=== PATIENT | female | born 1955 | race Caucasian/White ===

== ENCOUNTER 2021-10-11 16:12 | Inpatient (IN) | payer MEDICARE, OTHER ==
[2021-10-11] MEDS ORDERED: DEXAMETHASONE SOD PHOSPHATE 10 MG/ML 1 ML VIAL IVP STA (16:27)
--- NOTE | 2021-10-11 16:36 | ED ---
General Adult HPI - General Chief complaint: Shortness of Breath Stated complaint: SOB Time Seen by Provider: 10/11/21 16:12 Source: patient, EMS Mode of arrival: EMS Limitations: no limitations - History of Present Illness Initial comments: 65-year-old female presents emergency Department via EMS with chief complaint of dyspnea. Patient has been sick for 8 days. Patient reportedly tested positive outpatient. Patient states that she COVID-19 last year. Patient states she's had low-grade temp, increasing cough congestion shortness of breath no pain other than mild body aches. Denies any GI symptoms mild headache no neck pain or neck stiffness. Patient does have a history of COPD. - Related Data Allergies Allergy/AdvReac Type Severity Reaction Status Date / Time No Known Allergies Allergy Verified 10/11/21 16:19 Review of Systems ROS Statement: Those systems with pertinent positive or pertinent negative responses have been documented in the HPI. ROS Other: All systems not noted in ROS Statement are negative. Past Medical History Past Medical History: COPD, Thyroid Disorder History of Any Multi-Drug Resistant Organisms: None Reported Past Surgical History: Hysterectomy Past Psychological History: No Psychological Hx Reported Smoking Status: Current every day smoker Past Alcohol Use History: None Reported Past Drug Use History: None Reported General Exam Limitations: no limitations General appearance: alert, in no apparent distress Head exam: Present: atraumatic, normocephalic, normal inspection Eye exam: Present: normal appearance, PERRL, EOMI. Absent: scleral icterus, conjunctival injection, periorbital swelling ENT exam: Present: normal exam, mucous membranes moist Neck exam: Present: normal inspection, full ROM. Absent: tenderness, meningismus, lymphadenopathy Respiratory exam: Present: wheezes, decreased breath sounds. Absent: normal lung sounds bilaterally, respiratory distress, rales, rhonchi, stridor Cardiovascular Exam: Present: regular rate, normal rhythm, normal heart sounds. Absent: systolic murmur, diastolic murmur, rubs, gallop, clicks GI/Abdominal exam: Present: soft, normal bowel sounds. Absent: distended, tenderness, guarding, rebound, rigid Course Vital Signs 10/11/21 10/11/21 10/11/21 16:14 16:39 16:41 Temperature 98.2 F Pulse Rate 92 Respiratory 20 20 Rate Blood Pressure 122/52 O2 Sat by Pulse 98 88 L Oximetry Medical Decision Making - Medical Decision Making Chest x-ray showed bilateral pneumonia, patient's COVID-19 positive, hypoxia pulse ox 88%. Patient will be admitted for further evaluation treatment. - Lab Data Result diagrams: 10/11/21 16:32 10/11/21 16:32 Lab Results 10/11/21 10/11/21 10/11/21 Range/Units 16:31 16:32 16:32 WBC 5.6 (3.8-10.6) k/uL RBC 4.76 (3.80-5.40) m/uL Hgb 14.7 (11.4-16.0) gm/dL Hct 44.8 (34.0-46.0) % MCV 94.2 (80.0-100.0) fL MCH 30.9 (25.0-35.0) pg MCHC 32.8 (31.0-37.0) g/dL RDW 12.3 (11.5-15.5) % Plt Count 266 (150-450) k/uL MPV 8.2 Neutrophils % 81 % Lymphocytes % 9 % Monocytes % 7 % Eosinophils % 0 % Basophils % 1 % Neutrophils # 4.5 (1.3-7.7) k/uL Lymphocytes # 0.5 L (1.0-4.8) k/uL Monocytes # 0.4 (0-1.0) k/uL Eosinophils # 0.0 (0-0.7) k/uL Basophils # 0.1 (0-0.2) k/uL PT 9.6 (9.0-12.0) sec INR 0.9 (<1.2) APTT 25.9 (22.0-30.0) sec Sodium (137-145) mmol/L Potassium (3.5-5.1) mmol/L Chloride (98-107) mmol/L Carbon Dioxide (22-30) mmol/L Anion Gap mmol/L BUN (7-17) mg/dL Creatinine (0.52-1.04) mg/dL Est GFR (CKD-EPI)AfAm (>60 ml/min/1.73 sqM) Est GFR (CKD-EPI)NonAf (>60 ml/min/1.73 sqM) Glucose (74-99) mg/dL Plasma Lactic Acid Andrew (0.7-2.0) mmol/L Calcium (8.4-10.2) mg/dL Magnesium (1.6-2.3) mg/dL Total Bilirubin (0.2-1.3) mg/dL AST (14-36) U/L ALT (4-34) U/L Alkaline Phosphatase (38-126) U/L Lactate Dehydrogenase (313-618) U/L C-Reactive Protein (<1.0) mg/dL NT-Pro-B Natriuret Pep pg/mL Total Protein (6.3-8.2) g/dL Albumin (3.5-5.0) g/dL Coronavirus (PCR) Detected A (Not Detectd) 10/11/21 10/11/21 10/11/21 Range/Units 16:32 16:32 16:32 WBC (3.8-10.6) k/uL RBC (3.80-5.40) m/uL Hgb (11.4-16.0) gm/dL Hct (34.0-46.0) % MCV (80.0-100.0) fL MCH (25.0-35.0) pg MCHC (31.0-37.0) g/dL RDW (11.5-15.5) % Plt Count (150-450) k/uL MPV Neutrophils % % Lymphocytes % % Monocytes % % Eosinophils % % Basophils % % Neutrophils # (1.3-7.7) k/uL Lymphocytes # (1.0-4.8) k/uL Monocytes # (0-1.0) k/uL Eosinophils # (0-0.7) k/uL Basophils # (0-0.2) k/uL PT (9.0-12.0) sec INR (<1.2) APTT (22.0-30.0) sec Sodium 135 L (137-145) mmol/L Potassium 3.9 (3.5-5.1) mmol/L Chloride 98 (98-107) mmol/L Carbon Dioxide 28 (22-30) mmol/L Anion Gap 9 mmol/L BUN 11 (7-17) mg/dL Creatinine 0.63 (0.52-1.04) mg/dL Est GFR (CKD-EPI)AfAm >90 (>60 ml/min/1.73 sqM) Est GFR (CKD-EPI)NonAf >90 (>60 ml/min/1.73 sqM) Glucose 110 H (74-99) mg/dL Plasma Lactic Acid Andrew 2.0 (0.7-2.0) mmol/L Calcium 8.7 (8.4-10.2) mg/dL Magnesium 1.7 (1.6-2.3) mg/dL Total Bilirubin 0.3 (0.2-1.3) mg/dL AST 34 (14-36) U/L ALT 19 (4-34) U/L Alkaline Phosphatase 67 (38-126) U/L Lactate Dehydrogenase 663 H (313-618) U/L C-Reactive Protein 3.4 H (<1.0) mg/dL NT-Pro-B Natriuret Pep 143 pg/mL Total Protein 6.4 (6.3-8.2) g/dL Albumin 3.5 (3.5-5.0) g/dL Coronavirus (PCR) (Not Detectd) Disposition Clinical Impression: Pneumonia due to COVID-19 virus, Hypoxia Disposition: ADMITTED IP TO THIS HOSP Condition: Poor Referrals: Dennis Zafar DO [Primary Care Provider] - 1-2 days Time of Disposition: 17:34
[2021-10-11 16:45] LABS: Basophils # (A) 0.1 k/uL (0-0.2); Basophils % (A) 1 %; Eosinophils % (A) 0 %; HCT 44.8 % (34.0-46.0); HGB 14.7 gm/dL (11.4-16.0); Lymphocytes # (A) 0.5 k/uL (1.0-4.8); Lymphocytes % (A) 9 %; MCH 30.9 pg (25.0-35.0); MCHC 32.8 g/dL (31.0-37.0); MCV 94.2 fL (80.0-100.0); Mean Platelet Volume 8.2; Monocytes # (A) 0.4 k/uL (0-1.0); Monocytes % (A) 7 %; Neutrophils # (A) 4.5 k/uL (1.3-7.7); Neutrophils % (A) 81 %; Platelet Count 266 k/uL (150-450); RBC 4.76 m/uL (3.80-5.40); RDW 12.3 % (11.5-15.5); WBC 5.6 k/uL (3.8-10.6)
[2021-10-11 16:56] LABS: Chloride 98 mmol/L (98-107)
[2021-10-11 17:00] LABS: ALT 19 U/L (4-34); AST 34 U/L (14-36); African American GFR (CKD) >90 (>60 ml/min/1.73 sqM); Albumin 3.5 g/dL (3.5-5.0); Alkaline Phosphatase 67 U/L (38-126); Anion Gap 9 mmol/L; Blood Urea Nitrogen 11 mg/dL (7-17); C Reactive Protein 3.4 mg/dL (<1.0); Calcium 8.7 mg/dL (8.4-10.2); Carbon Dioxide 28 mmol/L (22-30); Glucose 110 mg/dL (74-99); LDH 663 U/L (313-618); Magnesium 1.7 mg/dL (1.6-2.3); Non-African American GFR(CKD) >90 (>60 ml/min/1.73 sqM); Potassium 3.9 mmol/L (3.5-5.1); Sodium 135 mmol/L (137-145); Total Bilirubin 0.3 mg/dL (0.2-1.3); Total Protein 6.4 g/dL (6.3-8.2)
--- NOTE | 2021-10-11 17:18 | XR ---
EXAMINATION TYPE: XR chest 2V DATE OF EXAM: 10/11/2021 COMPARISON: NONE HISTORY: Difficulty breathing TECHNIQUE: 2 views FINDINGS: There is patchy infiltrates at both lung bases. Upper lobes appear clear. There is some fla ttening of the diaphragm. There is bilateral breast implants with calcification. There are no hilar m asses. Heart size is normal. IMPRESSION: There is bilateral lower lobe pneumonia which is much more on the right side. Normal hear t. There is probably COPD. No heart failure.
[2021-10-11 17:25] LABS: INR 0.9 (<1.2); Partial Thromboplastin Time 25.9 sec (22.0-30.0); Prothrombin Time 9.6 sec (9.0-12.0)
[2021-10-11] MEDS ORDERED: NALOXONE 0.4 MG/ML 1 ML VIAL IV PRN (17:34)
[2021-10-11] MEDS ORDERED: ACETAMINOPHEN TAB 325 MG TAB PO PRN (17:34)
[2021-10-11] MEDS: SODIUM CHLORIDE 0.9% 1,000 ML IV SCH (19:25)
[2021-10-11] MEDS ORDERED: REMDESIVIR 200 MG in SODIUM CHLORIDE 0.9% 250 ML IVPB ONE (21:30)
[2021-10-11] MEDS ORDERED: ONDANSETRON 4 MG TAB PO PRN (22:30)
--- NOTE | 2021-10-11 22:34 | P.HPIM ---
History of Present Illness H&P Date: 10/11/21 Chief Complaint: Short of breath This is a pleasant 65 year patient follows with Dr. Zafar. Long-standing smoker. She did not get the COVID-19 vaccine. In August of last year she did get COVID. But was not hospitalized. For about a week patient started having increasing shortness of breath. Some cough. Low-grade fever or chills. Some diarrhea which is actually better. Aching all over. Slight headache. No loss of smell or taste. Poor appetite. Patient has tested positive for COVID-19. Review of systems: GEN.: Tired decreased appetite low-grade fever or chills EYES: None HEENT: None NECK: None RESPIRATORY: [As above CARDIOVASCULAR: None GASTROINTESTINAL: Had diarrhea but better GENITOURINARY: None MUSCULOSKELETAL: Aches and pains LYMPHATICS: None HEMATOLOGICAL: None PSYCHIATRY: None NEUROLOGICAL: None Past medical history to include: COPD, hypothyroid, COVID-19 in August 2020 Social history: . No alcohol. Smokes a pack a day for close to 55 years. Family history: Reviewed, noncontributory to presentation Physical examination: VITAL SIGNS: 98.2, 92, 20, 1 22 x 52, 88% on room air GENERAL: BMI 25.9, reclining in bed, short of breath. EYES: Pupils equal. Conjunctiva normal. HEENT: External appearance of nose and ears normal, oral cavity grossly normal. NECK: JVD not raised; masses not palpable. HEART: First and second heart sounds are normal; no edema. LUNGS: Respiratory rate increased, decreased breath sounds prolonged expiration and wheezing unable to speak in full sentences. ABDOMEN: Soft, nontender, liver spleen not palpable, no masses palpable. PSYCH: Alert and oriented x3; mood and affect anxiousl. NEUROLOGICAL: Cranial nerves grossly intact; no facial asymmetry, power and sensation grossly intact. LYMPHATICS: No lymph nodes palpable in the axilla and neck INVESTIGATIONS, reviewed in the clinical context: White count 5.6 hemoglobin 14.7 platelets 266 lymphocytes 0.5 sodium 135 progression 3.9 creatinine 0.63 CRP 3.4 Coronavirus [PCR]: Detected EKG tracing personally reviewed by me-normal sinus rhythm rate 81 Chest x-ray film personally reviewed by me-breast implant. Some scattered inf iltrate. Prominent pulmonary artery Assessment and plan: -Acute COVID 19 pneumonitis in a patient had a previous infection in August 2020. She did not get the vaccine for COVID-19. Dexamethasone, vitamin C, vitamin D, zinc. Subcu Lovenox Started on Remdesivir by pulmonary. -Acute hypoxic is pretty failure secondary to COVID 19 pneumonitis On 5 L of nasal cannula -Acute COPD exacerbation in a current smoker Albuterol 4 puffs every 4. Symbicort 160 / 4.52r twice a day, dexamethasone -Hypothyroid Synthroid -Chronic ALLERGIES Claritin-D -Chronic nicotine dependence, cigarette smoker Nicotine patch 21 IV Remdesivir. Dexamethasone. Subcu Lovenox. Albuterol. Symbicort. Resume home medications. Oxygen. Given the complexity and severity of patient's condition expect the patient to be in the hospital at least for 2 overnights Past Medical History Past Medical History: COPD, Thyroid Disorder History of Any Multi-Drug Resistant Organisms: None Reported Past Surgical History: Hysterectomy Past Psychological History: No Psychological Hx Reported Smoking Status: Current every day smoker Past Alcohol Use History: None Reported Past Drug Use History: None Reported Medications and Allergies Home Medications Medication Instructions Recorded Confirmed Type Albuterol Sulfate [Proair Hfa] 2 puff INHALATION RT-QID PRN 10/11/21 10/11/21 Hi story Amoxic-Pot Clav 875-125Mg 1 tab PO BID 10/11/21 10/11/21 History [Augmentin 875-125] Fluticasone/Umeclidin/Vilanter 1 puff INHALATION RT-DAILY 10/11/21 10/11/21 History [Trelegy Ellipta 100-62.5-25] Levothyroxine Sodium [Synthroid] 125 mcg PO DAILY 10/11/21 10/11/21 History Loratadine-Pseudoeph 5-120 mg 1 tab PO Q12H PRN 10/11/21 10/11/21 History [Claritin-D 12 Hour] Ondansetron HCl [Zofran] 4 mg PO Q8H PRN 10/11/21 10/11/21 History predniSONE See Taper PO DAILY 10/11/21 10/11/21 History Allergies Allergy/AdvReac Type Severity Reaction Status Date / Time No Known Allergies Allergy Verified 10/11/21 17:53 Physical Exam Vitals: Vital Signs Temp Pulse Resp BP Pulse Ox 10/11/21 20:30 98.6 F 75 18 102/54 96 10/11/21 17:48 97 F L 78 18 101/58 94 L 10/11/21 16:41 20 10/11/21 16:39 88 L 10/11/21 16:14 98.2 F 92 20 122/52 98 Intake and Output 10/11/21 10/11/21 10/11/21 06:59 14:59 22:59 Other: Weight 68.492 kg Results CBC & Chem 7: 10/11/21 16:32 10/11/21 16:32 Labs: Abnormal Lab Results - Last 24 Hours (Table) 10/11/21 10/11/21 10/11/21 Range/Units 16:31 16:32 16:32 Lymphocytes # 0.5 L (1.0-4.8) k/uL Sodium 135 L (137-145) mmol/L Glucose 110 H (74-99) mg/dL Lactate Dehydrogenase 663 H (313-618) U/L C-Reactive Protein 3.4 H (<1.0) mg/dL Coronavirus (PCR) Detected A (Not Detectd)
[2021-10-11] MEDS ORDERED: LORazepam 0.5 MG TAB PO PRN (23:00)
[2021-10-11] MEDS: ASCORBIC ACID 500 MG TAB PO SCH (23:12)
[2021-10-11] MEDS: ENOXAPARIN 40 MG/0.4 ML SYRINGE SQ SCH (23:12)
[2021-10-11] MEDS: CHOLECALCIFEROL 25 MCG (1000 IU) TABLET PO SCH (23:12)
[2021-10-11] MEDS: ZINC SULFATE 220 MG CAP PO SCH (23:12)
[2021-10-11] MEDS: NICOTINE 21MG/24HR PATCH TRANSDERM SCH (23:13)
[2021-10-11] MEDS: SYMBICORT 160-4.5 MCG INHALER INHALATION SCH (23:31)
[2021-10-11] MEDS: ALBUTEROL HFA INHALER INHALATION SCH ×2 (23:31→23:52)
[2021-10-12] MEDS ORDERED: CALCIUM CARBONATE 500 MG CHEWABLE PO PRN
[2021-10-12] MEDS: ALBUTEROL HFA INHALER INHALATION SCH ×5 (01:00→20:36)
[2021-10-12] MEDS: TEMAZEPAM 15 MG CAP PO PRN ×2 (02:32→23:47)
[2021-10-12] MEDS ORDERED: ALBUTEROL HFA INHALER INHALATION PRN (03:06)
[2021-10-12] MEDS: LEVOTHYROXINE 125 MCG TAB PO SCH (05:39)
[2021-10-12] MEDS: CHOLECALCIFEROL 25 MCG (1000 IU) TABLET PO SCH (07:47)
[2021-10-12] MEDS: ASCORBIC ACID 500 MG TAB PO SCH ×2 (07:48→21:09)
[2021-10-12] MEDS: ZINC SULFATE 220 MG CAP PO SCH (07:48)
[2021-10-12] MEDS: ENOXAPARIN 40 MG/0.4 ML SYRINGE SQ SCH (07:48)
[2021-10-12] MEDS: dexAMETHasone 2 MG TAB PO SCH (07:48)
[2021-10-12] MEDS: NICOTINE 21MG/24HR PATCH TRANSDERM SCH (07:49)
[2021-10-12] MEDS ORDERED: NON FORMULARY DRUG (Fluticasone/Umeclidin/Vilanter [Trelegy Ellipta 100-62.5-25] 1 EACH Ea INHALATION SCH (08:00)
[2021-10-12] MEDS: SYMBICORT 160-4.5 MCG INHALER INHALATION SCH ×2 (08:19→20:36)
[2021-10-12] MEDS ORDERED: LORATADINE-PSEUDOEPH 5-120 MG 1 EACH TAB.ER.12H PO PRN (09:00)
[2021-10-12] MEDS ORDERED: LACTULOSE 20 GM/30 ML CUP PO PRN (09:00)
--- NOTE | 2021-10-12 09:10 | P.CNPUL ---
History of Present Illness Consult date: 10/12/21 Requesting physician: Samuel Holloway Reason for consult: dyspnea, cough, hypoxemia Chief complaint: Dyspnea, hypoxia, cough History of present illness: This is a 65-year-old female patient that follows with Dr. Zafar who is a long-time smoker, with history of COPD not oxygen dependent at baseline, and history of hypothyroidism who presented to the emergency department per EMS on 10/11/2021 for evaluation of dyspnea. She had a outpatient test that was positive, her onset of symptoms was 7-8 days prior to presentation and initially started with a low-grade fever, mild body aches, progressive cough, congestion. No nausea vomiting or diarrhea. Patient is not vaccinated against COVID-19, chest x-ray in the emergency department showed bilateral lower lobe pneumonia more on the right side. COVID-19 PCR was positive. CBC was within normal limits with the exception of lymphocyte count was 0.6, d-dimer was normal at 0.46, coagulation profile was within normal limits, sodium was 135, the rest of electrolytes were within normal limits, BUN was 11 creatinine was 0.63, lactic acid was 2.0, ferritin level was 949, LFTs were within normal limits, LDH was 663, CRP was 3.4, proBNP was 143. Patient was found to be hypoxic with a pulse ox of 88%, she was placed on supplemental oxygen currently requiring 4 L per pulse ox today is 94%, she is afebrile, hemodynamically she is been stable, she's been started on Decadron, we started her on Remdesivir yesterday, today is day 2 of treatment, she is on prophylactic anticoagulation and COVID-19 vitamins Review of Systems All systems: negative Constitutional: Reports fever, Reports weakness, Denies chills Eyes: denies blurred vision, denies pain Ears, nose, mouth and throat: Denies headache, Denies sore throat Cardiovascular: Denies chest pain, Denies shortness of breath Respiratory: Reports dyspnea, Denies cough Gastrointestinal: Denies abdominal pain, Denies diarrhea, Denies nausea, Denies vomiting Genitourinary: Denies dysuria, Denies hematuria Musculoskeletal: Denies myalgias Integumentary: Denies pruritus, Denies rash Neurological: Denies numbness, Denies weakness Psychiatric: Denies anxiety, Denies depression Endocrine: Denies fatigue, Denies weight change Past Medical History Past Medical History: COPD, Thyroid Disorder History of Any Multi-Drug Resistant Organisms: None Reported Past Surgical History: Hysterectomy Additional Past Surgical History / Comment(s): breast augmentation 40 years ago Past Psychological History: No Psychological Hx Reported Smoking Status: Current every day smoker Past Alcohol Use History: None Reported Past Drug Use History: None Reported Medications and Allergies Home Medications Medication Instructions Recorded Confirmed Type Albuterol Sulfate [Proair Hfa] 2 puff INHALATION RT-QID PRN 10/11/21 10/11/21 History Amoxic-Pot Clav 875-125Mg 1 tab PO BID 10/11/21 10/11/21 History [Augmentin 875-125] Fluticasone/Umeclidin/Vilanter 1 puff INHALATION RT-DAILY 10/11/21 10/11/21 History [Trelegy Ellipta 100-62.5-25] Levothyroxine Sodium [Synthroid] 125 mcg PO DAILY 10/11/21 10/11/21 History Loratadine-Pseudoeph 5-120 mg 1 tab PO Q12H PRN 10/11/21 10/11/21 History [Claritin-D 12 Hour] Ondansetron HCl [Zofran] 4 mg PO Q8H PRN 10/11/21 10/11/21 History predniSONE See Taper PO DAILY 10/11/21 10/11/21 History Allergies Allergy/AdvReac Type Severity Reaction Status Date / Time No Known Allergies Allergy Verified 10/11/21 17:53 Physical Exam Vitals: Vital Signs Temp Pulse Pulse Resp BP BP Pulse Ox 10/12/21 04:51 97.5 F L 63 17 103/65 94 L 10/12/21 02:05 98.3 F 74 18 98/51 95 10/11/21 22:40 98.1 F 71 17 111/67 93 L 10/11/21 20:30 98.6 F 75 18 102/54 96 10/11/21 17:48 97 F L 78 18 101/58 94 L 10/11/21 16:41 20 10/11/21 16:39 88 L 10/11/21 16:14 98.2 F 92 20 122/52 98 Intake and Output 10/11/21 10/12/21 10/12/21 22:59 06:59 14:59 Other: # Voids 2 Weight 68.492 kg GENERAL EXAM: Alert,very pleasant 65 yo female resting in bed on 4 l/min, comfortable in no apparent distress. HEAD: Normocephalic/atraumatic. EYES: Normal reaction of pupils, equal size. Conjunctiva pink, sclera white. NOSE: Clear with pink turbinates. THROAT: No erythema or exudates. NECK: No masses, no JVD, no thyroid enlargement, no adenopathy. CHEST: No chest wall deformity. Symmetrical expansion. LUNGS: Equal air entry with coarse crackles CVS: Regular rate and rhythm, normal S1 and S2, no gallops, no murmurs, no rubs ABDOMEN: Soft, nontender. No hepatosplenomegaly, normal bowel sounds, no guarding or rigidity. EXTREMITIES: No clubbing, no edema, no cyanosis, 2+ pulses and upper and lower extremities. MUSCULOSKELETAL: Muscle strength and tone normal. SPINE: No scoliosis or deformity SKIN: No rashes CENTRAL NERVOUS SYSTEM: Alert and oriented -3. No focal deficits, tone is normal in all 4 extremities. PSYCHIATRIC: Alert and oriented -3. Appropriate affect. Intact judgment and insight. Results - Laboratory Findings CBC and BMP: 10/11/21 16:32 10/11/21 16:32 PT/INR, D-dimer PT 9.6 sec (9.0-12.0) 10/11/21 16:32 INR 0.9 (<1.2) 10/11/21 16:32 D-Dimer 0.46 mg/L FEU (<0.60) 10/12/21 05:25 Abnormal lab findings: Abnormal Labs 10/11/21 10/11/21 10/11/21 16:31 16:32 16:32 Lymphocytes # 0.5 L Sodium 135 L Glucose 110 H Ferritin 949.0 H Lactate Dehydrogenase 663 H C-Reactive Protein 3.4 H Coronavirus (PCR) Detected A 10/12/21 05:25 Lymphocytes # Sodium Glucose Ferritin Lactate Dehydrogenase C-Reactive Protein 4.2 H Coronavirus (PCR) - Diagnostic Findings Chest x-ray: report reviewed, image reviewed Assessment and Plan Plan: Assessment: #1. Acute hypoxic respiratory failure related to acute COVID-19 pneumonia, patient is on non-vaccinated adult, presented to the emergency department per EMS on 10/11/2021 with 7 days of symptoms. Patient was started on Remdesivir on 10/11/2021. Currently on 4 L of supplemental oxygen #2. Elevated inflammatory markers related to the above #3. History of COPD not oxygen dependent at baseline #4. Chronic and ongoing history of smoking #5. Hypothyroidism Plan: Continue Remdesivir, today is day 2 of treatment Continue Decadron continue prophylactic anticoagulation Patient is breathing comfortably, in no acute distress, currently requiring 4 L of supplemental oxygen We'll follow d-dimer and inflammatory markers We'll monitor for worsening dyspnea or hypoxia and make recommendations accordingly I performed a history & physical examination of the patient and discussed their management with my nurse practitioner, Tish Crum. I reviewed the nurse practitioner's note and agree with the documented findings and plan of care. Lung sounds are positive for rales throughout the lung choudhury. The findings and the impression was discussed with the patient. I attest to the documentation by the nurse practitioner. Time with Patient: Greater than 30
--- NOTE | 2021-10-12 16:58 | P.PN ---
Progress Note - Text Progress Note Date: 10/12/21 Chief Complaint: Short of breath This is a pleasant 65 year patient follows with Dr. Zafar. Long-standing smoker. She did not get the COVID-19 vaccine. In August of last year she did get COVID. But was not hospitalized. For about a week patient started having i ncreasing shortness of breath. Some cough. Low-grade fever or chills. Some diarrhea which is actually better. Aching all over. Slight headache. No loss of smell or taste. Poor appetite. Patient has tested positive for COVID-19. Admitted with COVID 19 pneumonitis, acute hypoxic respiratory failure, acute COPD exacerbation. Started on dexamethasone, Remdesivir October 12: Feeding as she had better. Short of breath. Some wheezing. Eating about 50%. Was on 5 L of nasal cannula. Decreased to 3 L. Review of systems: Was done for constitutional, cardiovascular, GI, pulmonary. relevant finding as above Active Medications Acetaminophen (Acetaminophen Tab 325 Mg Tab) 650 mg PO Q6HR PRN PRN Reason: Mild Pain or Fever > 100.5 Albuterol Sulfate (Albuterol Hfa Inhaler) 4 puff INHALATION RT-QID [facility] Last Admin: 10/12/21 16:37 Dose: 4 puff Documented by: Albuterol Sulfate (Albuterol Hfa Inhaler) 4 puff INHALATION RT-QID PRN PRN Reason: Shortness Of Breath Or Wheezing Ascorbic Acid (Ascorbic Acid 500 Mg Tab) 500 mg PO BID [facility] Last Admin: 10/12/21 07:48 Dose: 500 mg Documented by: Budesonide/Formoterol Fumarate (Symbicort 160-4.5 Mcg Inhaler) 2 puff INHALATION RT-BID [facility] Last Admin: 10/12/21 08:19 Dose: 2 puff Documented by: Calcium Carbonate/Glycine (Calcium Carbonate 500 Mg Chewable) 1,000 mg PO Q4HR PRN PRN Reason: Dyspepsia Cholecalciferol (Cholecalciferol 25 Mcg (1000 Iu) Tablet) 100 mcg PO DAILY [facility] Last Admin: 10/12/21 07:47 Dose: 100 mcg Documented by: Dexamethasone (Dexamethasone 2 Mg Tab) 6 mg PO DAILY [facility] Last Admin: 10/12/21 07:48 Dose: 6 mg Documented by: Enoxaparin Sodium (Enoxaparin 40 Mg/0.4 Ml Syringe) 40 mg SQ DAILY [facility] Last Admin: 10/12/21 07:48 Dose: 40 mg Documented by: Sodium Chloride (Saline 0.9%) 1,000 mls @ 75 mls/hr IV .[id number] [facility] Last Admin: 10/11/21 19:25 Dose: 75 mls/hr Documented by: Remdesivir 100 mg/ Sodium (Chloride) 250 mls @ 250 mls/hr IVPB [facility] Stop: 10/15/21 21:59 Lactulose (Lactulose 20 Gm/30 Ml Cup) 20 gm PO DAILY PRN PRN Reason: Constipation Levothyroxine Sodium (Levothyroxine 125 Mcg Tab) 125 mcg PO DAILY@0630 [facility] Last Admin: 10/12/21 05:39 Dose: 125 mcg Documented by: Loratadine/Pseudoephedrine Sulfate (Loratadine-Pseudoeph 5-120 Mg 1 Each Tab.Er.12h) 1 each PO Q12H PRN PRN Reason: Allergy Symptoms Lorazepam (Lorazepam 0.5 Mg Tab) 0.5 mg PO Q6HR PRN PRN Reason: Anxiety Naloxone HCl (Naloxone 0.4 Mg/Ml 1 Ml Vial) 0.2 mg IV Q2M PRN PRN Reason: Opioid Reversal Nicotine (Nicotine 21mg/24hr Patch) 1 patch TRANSDERM DAILY [facility] Last Admin: 10/12/21 07:49 Dose: Not Given Documented by: Ondansetron HCl (Ondansetron 4 Mg Tab) 4 mg PO Q8H PRN PRN Reason: Nausea And Vomiting Temazepam (Temazepam 15 Mg Cap) 15 mg PO HS PRN PRN Reason: Insomnia Last Admin: 10/12/21 02:32 Dose: 15 mg Documented by: Zinc Sulfate (Zinc Sulfate 220 Mg Cap) 220 mg PO DAILY [facility] Last Admin: 10/12/21 07:48 Dose: 220 mg Documented by: Past medical history to include: COPD, hypothyroid, COVID-19 in August 2020 Social history: . No alcohol. Smokes a pack a day for close to 55 years. Family history: Reviewed, noncontributory to presentation Physical examination: VITAL SIGNS: 98.2, 66, 18, 109/65, 92% on 2 L GENERAL: , reclining in bed, short of breath. LUNGS: Respiratory rate increased, PSYCH: Alert and oriented x3; mood and affect anxiousl. NEUROLOGICAL: Cranial nerves grossly intact; no facial asymmetry, moving all 4 limbs Still example pulmonary and nursing INVESTIGATIONS, reviewed in the clinical context: October 12: D-dimer 0.46 CRP 4.2 White count 5.6 hemoglobin 14.7 platelets 266 lymphocytes 0.5 sodium 135 progression 3.9 creatinine 0.63 CRP 3.4 Coronavirus [PCR]: Detected EKG tracing personally reviewed by me-normal sinus rhythm rate 81 Chest x-ray film personally reviewed by me-breast implant. Some scattered infiltrate. Prominent pulmonary artery Assessment and plan: -Acute COVID 19 pneumonitis in a patient had a previous infection in August 2020. She did not get the vaccine for COVID-19. Dexamethasone, vitamin C, vitamin D, zinc. Subcu Lovenox Started on Remdesivir by pulmonary. -Acute hypoxic is pretty failure secondary to COVID 19 pneumonitis: Some improvement On 3 L of nasal cannula -Acute COPD exacerbation in a current smoker Albuterol 4 puffs every 4. Symbicort 160 / 4.52r twice a day, dexamethasone -Hypothyroid Synthroid -Chronic ALLERGIES Claritin-D -Chronic nicotine dependence, cigarette smoker Nicotine patch 21 IV Remdesivir. Dexamethasone. Subcu Lovenox. Albuterol. Symbicort. Patient use incentive spirometry. Up in chair as tolerated.
[2021-10-12] MEDS: REMDESIVIR 100 MG in SODIUM CHLORIDE 0.9% 250 ML IVPB SCH (21:09)
[2021-10-13] MEDS: SODIUM CHLORIDE 0.9% 1,000 ML IV SCH ×4 (03:19→23:57)
[2021-10-13] MEDS: LEVOTHYROXINE 125 MCG TAB PO SCH (05:35)
[2021-10-13] MEDS: SYMBICORT 160-4.5 MCG INHALER INHALATION SCH ×2 (07:59→21:00)
[2021-10-13] MEDS: ALBUTEROL HFA INHALER INHALATION SCH ×4 (07:59→21:00)
--- NOTE | 2021-10-13 09:17 | P.PN ---
Subjective Progress Note Date: 10/13/21 This is a 65-year-old female patient that follows with Dr. Zafar who is a long-time smoker, with history of COPD not oxygen dependent at baseline, and history of hypothyroidism who presented to the emergency department per EMS on 10/11/2021 for evaluation of dyspnea. She had a outpatient test that was positive, her onset of symptoms was 7-8 days prior to presentation and initially started with a low-grade fever, mild body aches, progressive cough, congestion. No nausea vomiting or diarrhea. Patient is not vaccinated against COVID-19, chest x-ray in the emergency department showed bilateral lower lobe pneumonia more on the right side. COVID-19 PCR was positive. CBC was within normal limits with the exception of lymphocyte count was 0.6, d-dimer was normal at 0.46, coagulation profile was within normal limits, sodium was 135, the rest of electrolytes were within normal limits, BUN was 11 creatinine was 0.63, lactic acid was 2.0, ferritin level was 949, LFTs were within normal limits, LDH was 663, CRP was 3.4, proBNP was 143. Patient was found to be hypoxic with a pulse ox of 88%, she was placed on supplemental oxygen currently requiring 4 L per pulse ox today is 94%, she is afebrile, hemodynamically she is been stable, she's been started on Decadron, we started her on Remdesivir yesterday, today is day 2 of treatment, she is on prophylactic anticoagulation and COVID-19 vitamins On 10/13/2021 patient seen in follow-up on medical surgical floor, she sitting up and into the bed, breathing comfortably, she is currently on 3 L of oxygen her pulse ox of 91-95%, she has been afebrile overnight, she states her breathing is stable, mild cough, no complaints of chest pain, at times she is able to produce some white colored phlegm. Vital signs have been stable, she is resting comfortably, she was started on Remdesivir, today is day 3 of treatment. She also remains on Decadron, and prophylactic Lovenox. Today's labs are still pending. No new chest x-ray Objective - Vital Signs Vital signs: Vital Signs Temp 98.0 F 10/13/21 05:57 Pulse 61 10/13/21 05:57 Resp 17 10/13/21 05:57 BP 110/68 10/13/21 05:57 Pulse Ox 91 L 10/13/21 05:57 Intake & Output 10/12/21 10/13/21 10/13/21 18:59 06:59 18:59 Intake Total 1000 Output Total 1 Balance 999 Intake: Oral 1000 Output: Stool 1 Other: # Voids 4 3 - Exam GENERAL EXAM: Alert,very pleasant 65 yo female resting in bed on 3 l/min, comfortable in no apparent distress. HEAD: Normocephalic/atraumatic. EYES: Normal reaction of pupils, equal size. Conjunctiva pink, sclera white. NOSE: Clear with pink turbinates. THROAT: No erythema or exudates. NECK: No masses, no JVD, no thyroid enlargement, no adenopathy. CHEST: No chest wall deformity. Symmetrical expansion. LUNGS: Equal air entry with coarse crackles CVS: Regular rate and rhythm, normal S1 and S2, no gallops, no murmurs, no rubs ABDOMEN: Soft, nontender. No hepatosplenomegaly, normal bowel sounds, no guarding or rigidity. EXTREMITIES: No clubbing, no edema, no cyanosis, 2+ pulses and upper and lower extremities. MUSCULOSKELETAL: Muscle strength and tone normal. SPINE: No scoliosis or deformity SKIN: No rashes CENTRAL NERVOUS SYSTEM: Alert and oriented -3. No focal deficits, tone is norm al in all 4 extremities. PSYCHIATRIC: Alert and oriented -3. Appropriate affect. Intact judgment and insight. - Labs CBC & Chem 7: 10/11/21 16:32 10/11/21 16:32 Assessment and Plan Plan: Assessment: #1. Acute hypoxic respiratory failure related to acute COVID-19 pneumonia, patient is on non-vaccinated adult, presented to the emergency department per EMS on 10/11/2021 with 7 days of symptoms. Patient was started on Remdesivir on 10/11/2021. Currently on 4 L of supplemental oxygen #2. Elevated inflammatory markers related to the above #3. History of COPD not oxygen dependent at baseline #4. Chronic and ongoing history of smoking #5. Hypothyroidism Plan: Continue Remdesivir, today is day 3 of treatment Continue Decadron continue prophylactic anticoagulation Patient is breathing comfortably, in no acute distress, currently requiring 3 L of supplemental oxygen Follow-up d-dimer and inflammatory markers are still pending If remains stable and continues to improve and remains on minimal supplemental oxygen may consider discharge home in the next 24 hours I performed a history & physical examination of the patient and discussed their management with my nurse practitioner, Tish Crum. I reviewed the nurse practitioner's note and agree with the documented findings and plan of care. Lung sounds are positive for rales throughout the lung choudhury. The findings and the impression was discussed with the patient. I attest to the documentation by the nurse practitioner. Time with Patient: Less than 30
[2021-10-13] MEDS: CHOLECALCIFEROL 25 MCG (1000 IU) TABLET PO SCH (09:30)
[2021-10-13] MEDS: ZINC SULFATE 220 MG CAP PO SCH (09:30)
[2021-10-13] MEDS: ASCORBIC ACID 500 MG TAB PO SCH ×2 (09:30→20:48)
[2021-10-13] MEDS: dexAMETHasone 2 MG TAB PO SCH (09:30)
[2021-10-13] MEDS: ENOXAPARIN 40 MG/0.4 ML SYRINGE SQ SCH (09:30)
[2021-10-13] MEDS: NICOTINE 21MG/24HR PATCH TRANSDERM SCH (09:31)
[2021-10-13 10:40] LABS: C Reactive Protein 2.2 mg/dL (<1.0)
--- NOTE | 2021-10-13 14:46 | P.PN ---
Progress Note - Text Progress Note Date: 10/13/21 Chief Complaint: Short of breath This is a pleasant 65 [address] patient follows with Dr. Zafar. Long-standing smoker. She did not get the COVID-19 vaccine. In August of last year she did get COVID. But was not hospitalized. For about a week patient started having i ncreasing shortness of breath. Some cough. Low-grade fever or chills. Some diarrhea which is actually better. Aching all over. Slight headache. No loss of smell or taste. Poor appetite. Patient has tested positive for COVID-19. Admitted with COVID 19 pneumonitis, acute hypoxic respiratory failure, acute COPD exacerbation. Started on dexamethasone, Remdesivir October 12: Feeding as she had better. Short of breath. Some wheezing. Eating about 50%. Was on 5 L of nasal cannula. Decreased to 3 L. October 13: Some shortness of breath. Eating a bit better. Tired. On 3 L of nasal cannula. Review of systems: Was done for constitutional, cardiovascular, GI, pulmonary. relevant finding as above Active Medications Acetaminophen (Acetaminophen Tab 325 Mg Tab) 650 mg PO Q6HR PRN PRN Reason: Mild Pain or Fever > 100.5 Albuterol Sulfate (Albuterol Hfa Inhaler) 4 puff INHALATION RT-QID [facility] Last Admin: 10/13/21 11:14 Dose: Not Given Documented by: Albuterol Sulfate (Albuterol Hfa Inhaler) 4 puff INHALATION RT-QID PRN PRN Reason: Shortness Of Breath Or Wheezing Ascorbic Acid (Ascorbic Acid 500 Mg Tab) 500 mg PO BID [facility] Last Admin: 10/13/21 09:30 Dose: 500 mg Documented by: Budesonide/Formoterol Fumarate (Symbicort 160-4.5 Mcg Inhaler) 2 puff INHALATION RT-BID [facility] Last Admin: 10/13/21 07:59 Dose: 2 puff Documented by: Calcium Carbonate/Glycine (Calcium Carbonate 500 Mg Chewable) 1,000 mg PO Q4HR PRN PRN Reason: Dyspepsia Cholecalciferol (Cholecalciferol 25 Mcg (1000 Iu) Tablet) 100 mcg PO DAILY [facility] Last Admin: 10/13/21 09:30 Dose: 100 mcg Documented by: Dexamethasone (Dexamethasone 2 Mg Tab) 6 mg PO DAILY [facility] Last Admin: 10/13/21 09:30 Dose: 6 mg Documented by: Enoxaparin Sodium (Enoxaparin 40 Mg/0.4 Ml Syringe) 40 mg SQ DAILY [facility] Last Admin: 10/13/21 09:30 Dose: 40 mg Documented by: Sodium Chloride (Saline 0.9%) 1,000 mls @ 75 mls/hr IV .[id number] [facility] Last Admin: 10/13/21 03:19 Dose: 75 mls/hr Documented by: Remdesivir 100 mg/ Sodium (Chloride) 250 mls @ 250 mls/hr IVPB HS [facility] Stop: 10/15/21 21:59 Last Admin: 10/12/21 21:09 Dose: 250 mls/hr Documented by: Lactulose (Lactulose 20 Gm/30 Ml Cup) 20 gm PO DAILY PRN PRN Reason: Constipation Levothyroxine Sodium (Levothyroxine 125 Mcg Tab) 125 mcg PO DAILY@0630 [facility] Last Admin: 10/13/21 05:35 Dose: 125 mcg Documented by: Loratadine/Pseudoephedrine Sulfate (Loratadine-Pseudoeph 5-120 Mg 1 Each Tab.Er.12h) 1 each PO Q12H PRN PRN Reason: Allergy Symptoms Lorazepam (Lorazepam 0.5 Mg Tab) 0.5 mg PO Q6HR PRN PRN Reason: Anxiety Naloxone HCl (Naloxone 0.4 Mg/Ml 1 Ml Vial) 0.2 mg IV Q2M PRN PRN Reason: Opioid Reversal Nicotine (Nicotine 21mg/24hr Patch) 1 patch TRANSDERM DAILY [facility] Last Admin: 10/13/21 09:31 Dose: Not Given Documented by: Ondansetron HCl (Ondansetron 4 Mg Tab) 4 mg PO Q8H PRN PRN Reason: Nausea And Vomiting Temazepam (Temazepam 15 Mg Cap) 15 mg PO HS PRN PRN Reason: Insomnia Last Admin: 10/12/21 23:47 Dose: 15 mg Documented by: Zinc Sulfate (Zinc Sulfate 220 Mg Cap) 220 mg PO DAILY [facility] Last Admin: 10/13/21 09:30 Dose: 220 mg Documented by: Past medical history to include: COPD, hypothyroid, COVID-19 in August 2020 Social history: . No alcohol. Smokes a pack a day for close to 55 years. Family history: Reviewed, noncontributory to presentation Physical examination: VITAL SIGNS: 97.5, 64, 19, 93 x 55, 97% on 3 L GENERAL: , reclining in bed, less short of breath. LUNGS: Respiratory rate increased, PSYCH: Alert and oriented x3; mood and affect anxiousl. NEUROLOGICAL: Cranial nerves grossly intact; no facial asymmetry, moving all 4 limbs Rest of the exam per pulmonary and nursing INVESTIGATIONS, reviewed in the clinical context: October 13: D-dimer 0.53 CRP 2.2 October 12: D-dimer 0.46 CRP 4.2 White count 5.6 hemoglobin 14.7 platelets 266 lymphocytes 0.5 sodium 135 progression 3.9 creatinine 0.63 CRP 3.4 Coronavirus [PCR]: Detected EKG tracing personally reviewed by me-normal sinus rhythm rate 81 Chest x-ray film personally reviewed by me-breast implant. Some scattered infiltrate. Prominent pulmonary artery Assessment and plan: -Acute COVID 19 pneumonitis in a patient had a previous infection in August 2020. She did not get the vaccine for COVID-19. Dexamethasone, vitamin C, vitamin D, zinc. Subcu Lovenox Started on Remdesivir by pulmonary. -Acute hypoxic is pretty failure secondary to COVID 19 pneumonitis: Some improvement On 3 L of nasal cannula -Acute COPD exacerbation in a current smoker Albuterol 4 puffs every 4. Symbicort 160 / 4.52r twice a day, dexamethasone -Hypothyroid Synthroid -Chronic ALLERGIES Claritin-D -Chronic nicotine dependence, cigarette smoker Nicotine patch 21 IV Remdesivir. Dexamethasone. Subcu Lovenox. Albuterol. Symbicort. Patient use incentive spirometry. Discussed with patient. Follow with pulmonary.
[2021-10-13] MEDS: TEMAZEPAM 15 MG CAP PO PRN (20:48)
[2021-10-13] MEDS: REMDESIVIR 100 MG in SODIUM CHLORIDE 0.9% 250 ML IVPB SCH (20:48)
[2021-10-14] MEDS: LEVOTHYROXINE 125 MCG TAB PO SCH (05:33)
--- NOTE | 2021-10-14 07:38 | XR ---
EXAMINATION TYPE: XR chest 1V portable DATE OF EXAM: 10/14/2021 COMPARISON: Chest x-ray 10/11/2021 HISTORY: Abnormal chest x-ray, Covid TECHNIQUE: Single frontal view of the chest is obtained. FINDINGS: Patchy density is again noted at the right lung base greater than left. There is no eviden t pneumothorax or pleural effusion. Cardiac mediastinal silhouette shows a stable appearance. Calcifi ed breast prostheses are noted incidentally. Bones are stable. IMPRESSION: Correlate for pneumonia.
[2021-10-14] MEDS: SYMBICORT 160-4.5 MCG INHALER INHALATION SCH (09:15)
[2021-10-14] MEDS: ALBUTEROL HFA INHALER INHALATION SCH ×3 (09:15→15:57)
[2021-10-14] MEDS: dexAMETHasone 2 MG TAB PO SCH (09:20)
[2021-10-14] MEDS: ENOXAPARIN 40 MG/0.4 ML SYRINGE SQ SCH (09:20)
[2021-10-14] MEDS: ASCORBIC ACID 500 MG TAB PO SCH (09:20)
[2021-10-14] MEDS: CHOLECALCIFEROL 25 MCG (1000 IU) TABLET PO SCH (09:20)
[2021-10-14] MEDS: ZINC SULFATE 220 MG CAP PO SCH (09:20)
[2021-10-14] MEDS: NICOTINE 21MG/24HR PATCH TRANSDERM SCH (09:21)
[2021-10-14 12:40] VITALS: BP 132/72; PULSE 66; RESP 18; TEMP 97.5
[2021-10-14] MEDS: SODIUM CHLORIDE 0.9% 1,000 ML IV SCH (16:24)
--- NOTE | 2021-10-14 17:13 | P.PN ---
Subjective Progress Note Date: 10/14/21 Principal diagnosis: Acute hypoxic or for failure secondary to COVID-19 pneumonia, not vaccinated. This is a 65-year-old female patient that follows with Dr. Zafar who is a jessica g-time smoker, with history of COPD not oxygen dependent at baseline, and history of hypothyroidism who presented to the emergency department per EMS on 10/11/2021 for evaluation of dyspnea. She had a outpatient test that was positive, her onset of symptoms was 7-8 days prior to presentation and initially started with a low-grade fever, mild body aches, progressive cough, congestion. No nausea vomiting or diarrhea. Patient is not vaccinated against COVID-19, chest x-ray in the emergency department showed bilateral lower lobe pneumonia more on the right side. COVID-19 PCR was positive. CBC was within normal limits with the exception of lymphocyte count was 0.6, d-dimer was normal at 0.46, coagulation profile was within normal limits, sodium was 135, the rest of electrolytes were within normal limits, BUN was 11 creatinine was 0.63, lactic acid was 2.0, ferritin level was 949, LFTs were within normal limits, LDH was 663, CRP was 3.4, proBNP was 143. Patient was found to be hypoxic with a pulse ox of 88%, she was placed on supplemental oxygen currently requiring 4 L per pulse ox today is 94%, she is afebrile, hemodynamically she is been stable, she's been started on Decadron, we started her on Remdesivir yesterday, today is day 2 of treatment, she is on prophylactic anticoagulation and COVID-19 vitamins On 10/13/2021 patient seen in follow-up on medical surgical floor, she sitting up and into the bed, breathing comfortably, she is currently on 3 L of oxygen her pulse ox of 91-95%, she has been afebrile overnight, she states her breathing is stable, mild cough, no complaints of chest pain, at times she is able to produce some white colored phlegm. Vital signs have been stable, she is resting comfortably, she was started on Remdesivir, today is day 3 of treatment. She also remains on Decadron, and prophylactic Lovenox. Today's labs are still pending. No new chest x-ray Reevaluated today on 10/14/2021. Patient is feeling a bit better, she is on 3 L nasal cannula, O2 saturation is 91%. Patient remains on the COVID-19 cocktail. Remains on Lovenox 40 mg subcu daily, Decadron 6 mg by mouth daily she is also on remdesivir. Patient is doing much better, and I have no problem clearing the patient to go home without finishing the full course of treatment. Patient will remain on the COVID-19 cocktail at home. Objective - Vital Signs Vital signs: Vital Signs Temp 97.5 F L 10/14/21 12:38 Pulse 66 10/14/21 12:38 Resp 18 10/14/21 12:38 BP 132/72 10/14/21 12:38 Pulse Ox 91 L 10/14/21 12:42 Intake & Output 10/13/21 10/14/21 10/14/21 18:59 06:59 18:59 Other: Voiding Method Toilet Toilet # Voids 3 3 - Exam Physical Exam revealed a 65-year-old female in no distress Head: Atraumatic normocephalic. HEENT:[Neck is supple.] [No neck masses.] [No thyromegaly.] [No JVD.] Chest: [Crackles at the bases Cardiac Exam: [Normal S1 and S2, no S3 gallop, no murmur.] Abdomen: [Soft, nontender, no megaly, no rebound, no guarding, normal bowel sounds.] Extremities: [No clubbing, no edema, no cyanosis.] Neurological Exam: [No focal neurologic deficit.] Psychiatric: Normal mood affect and normal mental status examination Skin: No rashes - Labs CBC & Chem 7: 10/11/21 16:32 10/11/21 16:32 Assessment and Plan Assessment: #1. Acute hypoxic respiratory failure related to acute COVID-19 pneumonia, patient is on non-vaccinated adult, presented to the emergency department per EMS on 10/11/2021 with 7 days of symptoms. Patient was started on Remdesivir on 10/11/2021. Currently on 3 L nasal cannula #2. Elevated inflammatory markers related to the above #3. History of COPD not oxygen dependent at baseline #4. Chronic and ongoing history of smoking #5. Hypothyroidism Recommendation: Continue the COVID-19 cocktail Consider discharge planning on home oxygen Follow-up on outpatient basis Cleared by pulmonary to be discharged home. Time with Patient: Less than 30
--- NOTE | 2021-10-14 19:10 | P.DS ---
Providers Date of admission: 10/11/21 17:35 Expected date of discharge: 10/14/21 Attending physician: Samuel Holloway Consults: 10/11/21 17:34 Consult Physician Urgent Consulting Provider: Suzanne Brown Consult Reason/Comments: COVID-19 Do you want consulting provider notified?: Yes Primary care physician: Dennis Zafar [facility] Course: Chief Complaint: Short of breath This is a pleasant 65 [address] patient follows with Dr. Zafar. Long-standing smoker. She did not get the COVID-19 vaccine. In August of last year she did get COVID. But was not hospitalized. For about a week patient started having increasing shortness of breath. Some cough. Low-grade fever or chills. Some diarrhea which is actually better. Aching all over. Slight headache. No loss of smell or taste. Poor appetite. Patient has tested positive for COVID-19. Admitted with COVID 19 pneumonitis, acute hypoxic respiratory failure, acute COPD exacerbation. Started on dexamethasone, Remdesivir October 12: Feeding as she had better. Short of breath. Some wheezing. Eating about 50%. Was on 5 L of nasal cannula. Decreased to 3 L. October 13: Some shortness of breath. Eating a bit better. Tired. On 3 L of nasal cannula. October 14: Feeling better. Oral intake improved. Pulse ox 90% at rest and 86% with activity. Home oxygen arranged. Discussed with the patient. DC on Augmentin and prednisone taper. Consultation: Dr. Brown from pulmonary Past medical history to include: COPD, hypothyroid, COVID-19 in August 2020 Social history: . No alcohol. Smokes a pack a day for close to 55 years. Family history: Reviewed, noncontributory to presentation Physical examination: VITAL SIGNS: 97.5, 66, 18, 132/72, 91% on 3 L GENERAL: , reclining in bed, breathing better LUNGS: Respiratory rate normal PSYCH: Alert and oriented x3; mood and affect anxious NEUROLOGICAL: Cranial nerves grossly intact; no facial asymmetry, moving all 4 l imbs Rest of the exam per pulmonary and nursing INVESTIGATIONS, reviewed in the clinical context: October 13: D-dimer 0.53 CRP 2.2 October 12: D-dimer 0.46 CRP 4.2 White count 5.6 hemoglobin 14.7 platelets 266 lymphocytes 0.5 sodium 135 progression 3.9 creatinine 0.63 CRP 3.4 Coronavirus [PCR]: Detected EKG tracing personally reviewed by me-normal sinus rhythm rate 81 Chest x-ray film personally reviewed by me-breast implant. Some scattered infiltrate. Prominent pulmonary artery Assessment and plan: -Acute COVID 19 pneumonitis in a patient had a previous infection in August 2020. She did not get the vaccine for COVID-19.: Back to Dexamethasone, vitamin C, vitamin D, zinc. Subcu Lovenox Started on Remdesivir by pulmonary. Discharge and prednisone taper -Acute hypoxic is pretty failure secondary to COVID 19 pneumonitis: improvement On 3 L of nasal cannula-DC on the same -Acute COPD exacerbation in a current smoker: Back to Albuterol as needed. Symbicort 160 / 4.52r twice a day, prednisone taper -Hypothyroid Synthroid -Chronic ALLERGIES Claritin-D -Chronic nicotine dependence, cigarette smoker Nicotine patch 21 Disposition: Home Plan - Discharge Summary Discharge Rx Participant: No New Discharge Prescriptions: New Zinc Sulfate [Orazinc] 220 mg PO DAILY #30 cap Cholecalciferol [Vitamin D3 (25 Mcg = 1000 Iu)] 100 mcg PO DAILY #100 tablet Nicotine 21Mg/24Hr Patch [Habitrol] 1 patch TRANSDERM DAILY #14 patch predniSONE 10 mg PO DAILY #30 tab Ascorbic Acid [Vitamin C] 500 mg PO BID #60 tab Continue Albuterol Sulfate [Proair Hfa] 2 puff INHALATION RT-QID PRN PRN Reason: Shortness Of Breath Loratadine-Pseudoeph 5-120 mg [Claritin-D 12 Hour] 1 tab PO Q12H PRN PRN Reason: Allergy Symptoms Levothyroxine Sodium [Synthroid] 125 mcg PO DAILY Fluticasone/Umeclidin/Vilanter [Trelegy Ellipta 100-62.5-25] 1 puff INHALATION RT-DAILY Ondansetron HCl [Zofran] 4 mg PO Q8H PRN PRN Reason: Nausea And Vomiting Discontinued predniSONE See Taper PO DAILY Amoxic-Pot Clav 875-125Mg [Augmentin 875-125] 1 tab PO BID Discharge Medication List Albuterol Sulfate [Proair Hfa] 2 puff INHALATION RT-QID PRN 10/11/21 [History] Fluticasone/Umeclidin/Vilanter [Trelegy Ellipta 100-62.5-25] 1 puff INHALATION RT-DAILY 10/11/21 [History] Levothyroxine Sodium [Synthroid] 125 mcg PO DAILY 10/11/21 [History] Loratadine-Pseudoeph 5-120 mg [Claritin-D 12 Hour] 1 tab PO Q12H PRN 10/11/21 [History] Ondansetron HCl [Zofran] 4 mg PO Q8H PRN 10/11/21 [History] Ascorbic Acid [Vitamin C] 500 mg PO BID #60 tab 10/14/21 [Rx] Cholecalciferol [Vitamin D3 (25 Mcg = 1000 Iu)] 100 mcg PO DAILY #100 tablet 10/14/21 [Rx] Nicotine 21Mg/24Hr Patch [Habitrol] 1 patch TRANSDERM DAILY #14 patch 10/14/21 [Rx] Zinc Sulfate [Orazinc] 220 mg PO DAILY #30 cap 10/14/21 [Rx] predniSONE 10 mg PO DAILY #30 tab 10/14/21 [Rx] Follow up Appointment(s)/Referral(s): Suzanne Brown MD [STAFF PHYSICIAN] - 1 Week (Please call and make appointment) Dennis Zafar DO [Primary Care Provider] - 1-2 days (please call and make appointment) Cuauhtemoc Gordon,Equipment [NON-STAFF] - (*Please call [facility] once home to arrange delivery of oxygen concentrator. ) Patient Instructions/Handouts: Coronavirus Disease 2019 (COVID-19) Discharge Disposition: HOME SELF-CARE
== END 2021-10-14 18:35 | disposition home or self-care (01) | DRG 177 ==
LOC: EC 16:12 → 4SSUR 17:35
PROVIDERS: ADMIT Hospitalist; ATTEND Hospitalist
PROC: XW033E5 Introduction of Remdesivir Anti-infective into Peripheral Vein, Percutaneous Approach, New Technology Group 5 (ICD-10-PCS; principal; 2021-10-11)
DX: U07.1 COVID-19 (principal); J12.82 Pneumonia due to coronavirus disease 2019; J96.01 Acute respiratory failure with hypoxia; J44.0 Chronic obstructive pulmonary disease with (acute) lower respiratory infection; J44.1 Chronic obstructive pulmonary disease with (acute) exacerbation; F17.210 Nicotine dependence, cigarettes, uncomplicated; E03.9 Hypothyroidism, unspecified; Z79.890 Hormone replacement therapy; Z90.710 Acquired absence of both cervix and uterus; Z98.890 Other specified postprocedural states; Z86.16 Personal history of COVID-19; T78.40XA Allergy, unspecified, initial encounter; Z79.52 Long term (current) use of systemic steroids; Z79.899 Other long term (current) drug therapy
CPT/HCPCS: 36415; 71045; 71046; 80053; 82728; 83605; 83615; 83735; 83880; 85025; 85379; 85610; 85730; 86140; 87635; 93005; 94640; 96374; 99285

== ENCOUNTER → 2024-10-30 | Outpatient (CLI) | payer MEDICARE, OTHER | END | disposition home or self-care (01) | LOC: LABPAT 10:21 | PROVIDERS: ATTEND Orthopaedic Surgery | DX: Z01.812 Encounter for preprocedural laboratory examination (principal); M54.51 Vertebrogenic low back pain; Z22.322 Carrier or suspected carrier of Methicillin resistant Staphylococcus aureus | CPT/HCPCS: 36415; 86850; 86900; 86901; 87070 ==

== ENCOUNTER 2024-11-09 07:13 | Inpatient (IN) | payer MEDICARE, OTHER ==
--- NOTE | 2024-11-08 15:30 | P.HPOR ---
History of Present Illness H&P Date: 10/30/24 .D:Date: 10/30/24 : 02:12pm .T:Title: PRE-OP H1 [facility] [address] [place] [id number]| PROVIDER: CEDRICK LOCKHART DO CLINICAL SUMMARY: Ms. Hanna Alvarenga, a 68-year-old female, presents with severe thoracolumbar pain (VAS 10/10) following a fall approximately 4 weeks ago, demonstrating progressive neurological deterioration and significant postural deformity. Imaging reveals a severe T11 burst compression fracture with near-complete vertebral body collapse, resulting in a 50-degree kyphotic deformity at the fracture site and overall thoracic kyphosis of 89 degrees. The patient has failed conservative management with TLSO bracing, experiencing worsening pain and functional decline. She now demonstrates proximal leg weakness (4/4- out of 5), asymmetric reflexes, and decreased L4-5 dermatomal sensation bilaterally. The patient requires a cane for ambulation, exhibits severe forward posture with inability to maintain upright alignment, and reports significant impairment in activities of daily living, corroborated by her son with whom she resides. Given the progressive structural failure, new onset neurological deficits, and failed conservative measures, the patient has been scheduled for urgent surgical intervention consisting of open treatment of T11 fracture with T8-L2 stabilization, fusion, possible T11 corpectomy, and deformity correction to prevent further neurological compromise and structural deterioration. PLANNED PROCEDURE: open treatment of T11 fracture with T8-L2 stabilization, fusion, possible T11 corpectomy, and deformity correction PERIOP NOTES: INPATIENT POSSIBLE ICU POST OP A LINE, CENTRAL LINE NEEDED CONSENT CONFIRMED, AND OK SITE MARKED FOR SURGERY DEMOGRAPHICS: Age: 68 year Height: 5'2" Weight: 130 lbs BP:/ BMI: 23.78 kg/m2 Occupation: Retired CC: Mid back and Thoracic Back pain * VAS: 10 HISTORY: Ms. Alvarenga presents to the office today, 10/30/24, for a pre-operative appointment preceding her OPEN TREATMENT OF T11 FRACTURE WITH T8-L2 STABILIZATION, FUSION, WITH DEFORMITY CORRECTION. She continues to have thoracic spine and thoracolumbar junctional pain for the past 2 months that is progressively getting worse. She states she feels like she is bent over now and always looking at her feet and states she feels like she cannot stand straight up any longer. She was seen in the hospital for her back pain and was given TLSO brace of which she was wearing intermittently. She was seen by my [employer] OPERATOR Meliza who reiterated her TLSO wear and sent her for CT scans as well as MRI and scoliosis Xrays. It seems as tho she was able to get a CT but it was of her chest for pulmonary issues and not the others. She states continued progressive pain and debility related to her mid/low back and states that she cannot do most of her ADLs now. Her son is with her and corroborates this story as she lives with him and he is having to help with her more and more. She uses a cane for stability. She states no bowel or bladder issues, she states weakness in her legs that seems to be related to her pain. She denies any numbness/tingling at this time. No other injury to her back. The original injury was a fall that was about 4 weeks ago now. H8 Patient denies any f/c/sob/cp, perineal numbness or tingling, bowel, or bladder incontinence/retention. Patient is ambulatory with cane P1 The patients past social, medical, family, surgical history, as well as review of systems, have been reviewed. Please refer to the History and Physical form that has been scanned into our electronic medical record system. R0 16 points review of systems completed and as stated in HPI, all other systems reviewed are negative. PAST TREATMENTS: PAST IMAGING: YES -XR T and L spine, CT CHEST TRAUMA RELATED: YES -Fall WORK RELATED: NO - PT IN LAST 6 MONTHS: YES -FOr low back, but not for this injury PHYSICIAN DIRECTED HOME EXERCISE PROGRAM: YES -for low back but not for this injury ACTIVITY MODIFICAITON: YES -Limited ADLs secondary to pain and debility as well as deformity. -No BLTPP >10 lbs currently in TLSO MEDICATIONS: YES -[place], Flexeril ALTERNATIVE INTERVENTIONS (CHIROPRACTIC, ACCUPUNCTURE, MASSAGE, RICE): YES -RICE BRACING: YES -TLSO brace INJECTIONS (JAYLIN, TF, RFA): NO - MEDICAL HISTORY: Past Medical History: REVIEWED STATED IN CHART Past Surgical History: REVIEWED STATED IN CHART Social History: REVIEWED STATED IN CHART SMOKING: YES, Cut back significantly since in hospital due to fracture ETOH: NO SUBSTANCES: Denies Family History: REVIEWED STATED IN CHART P1 Current Medications: Rx: HYDROcodone 10 mg-acetaminophen 325 mg tablet Ref: 0 Instructions: take 1 tablet by oral route every 4-6 hours as needed for pain P1 PHYSICAL EXAM: General: AOX3, NAD, Well hydrate, well nourished HEENT: No lumps or masses Extremities: No color changes, no pooling INTEGUMENT: Appearance: Normal color and turgor Surgical Incisions: NA Hairy Patches: ABSENT Dorsal Skin Dimples: Normal [employer] spots: ABSENT PALPATION: TTP Midline: YES T10/11 region Paracervical: NO Parathoracic: YES Paralumbar: YES SIJ TESTING: TESTED, No TTP POSTURAL BALANCE: Coronal: UNBALANCED Sagittal: NOT BALANCED +++SVA Shoulder height: LEVEL Pelvic Girdle: LEVEL ROM AND APPEARANCE: Neck: UNRESTRICTED Lumbar: RESTRICTED Shoulders: Symmetrical Hips: Symmetrical Knees: Symmetrical Hands: Symmetrical Feet: Symmetrical VASCULAR STATUS: PALPABLE PULSES B/L UE AND LE 2/4 RAD/ULNAR/DP/PT Edema: NONE NEUROLOGICAL EXAMINATION: Mental Status: Awake, alert, fully oriented with normal attention, concentration, and memory. Fluent appropriate speech. CRANIAL NERVES: I: Olfactory not assessed. II: Visual acuity normal, no visual field deficit noted with confrontation. III, IV: Normal pupillary reflexes & intact extraocular movements without nystagmus. V, : Intact symmetrical facial sensation. VII: Intact symmetrical facial motor movement: Hearing intact. IX, X: Intact gag, swallow, & normal voice. XI: Sternocleidomastoid, trapezius function intact. XII: Tongue midline with normal movements. TENSIONING: * L'HERMITTE'S SIG:NEG SPURLUNG'S SIGN:NEG CUBITAL TUNNEL COMPRESSION:NEG TINELS AT WRIST:NEG STRAIGH LEG RAISE:NEG CONTRALATERAL STRAIGHT LEG RAISE: NEG MOTOR EXAM (0-5/5, NT) Muscle appearance: Symmetrical, without signs of atrophy or dystrophy UPPER EXTREMITY RIGHT LEFT Shoulder Abduction 5 5 Biceps 5 5 Triceps 5 5 Wrist Extension 5 5 Hand Intrinsics 5 5 Digital Marketing Executive 5 5 LOWER EXTREMITY RIGHT LEFT Hip Flexion 4 4- Knee Extension 4 4 Knee Flexion 4 4 Dorsiflexion 4 4 Plantarflexion 4 4 EHL 4 4 FHL 4 4 REFLEXES (0-4/2, NT): RIGHT LEFT Bicep 2 2 Brachioradialis 2 2 Triceps 2 2 Patellar 2 1 Achilles 1 2 PATHOLOGICAL REFLEXES: RIGHT LEFT OLIVEROS'S ABSENT ABSENT CLONUS ABSENT ABSENT BABINSKI ABSENT ABSENT RECTAL TONE: INTACT/NT SENSATION (0-4, NT): Sensation intact to LT and Pain * C5-T1 distribution BUE * L2-S2 distribution BLE *Exceptions below* DERMATOMAL DEFICIT/RADICULAR PATTERN: L4-5 currently decreased b/l sensation GAIT AND FUNCTIONAL EVALUATION: AMBULATORY AID Cane ROMBERG'S TEST INTACT HAND AND FINGER DEXTERITY INTACT YES DYSDIADOCHOKINESIA EXAM NEG B/L YES TOE/HEEL WALK INTACT WITH GOOD BALANCE YES, off balance SQUAT AND RISE W/O ASSISTANCE TO 60 DEG KNEE FLEXION NO SINGLE LEG STANCE NOT INTACT TRENDELENBURG NT IMAGING: XRAY Date: 08/26/24 Location: [facility] Region: Thoracic and Lumbar Views: AP/LAT Thoracic spine; AP/LAT/FLEX/EXT/OB/AP PELVIS Lumbar IMAGES ARE REVIEWED WITH THE PATIENT IN OFFICE AND DEMONSTRATE THE FOLLOWING: FINDINGS: Thoracic shows severe burst compression deformity of T11 vertebral body with near complete collapse of height causing severe kyphotic deformity due to junc tional failaure and column disruption. From T8-L2 this measures 50 degrees of kyphotic deformity due to the fracture. There is overall kyphosis from visible upper portion of T spine to L spine of around 89 deg due to normal kyphotic alignment added to acute 50 deg of fracture kyphosis. T7 has an old mild compression deformity that is healed. No other fractures noted in T spine. Lumbar shows grade 1 mobile spondylolisthesis of L4-5 with foraminal stenosis and disc height loss. There is movement on F/E films due to pt tolerance and above fracture and so these are somewhat non-diagnostic. No fractures noted in the lumbar spine. No lesions. AP pelvis shows congruent level pelvis w/o fracture. CT T and L spine pending. MRI T and L spine pending. IMPRESSION: It was my pleasure to have seen and examined Hanna. I reviewed the patient's clinical syndrome, physical findings, and imaging studies during the appointment today. It is my impression that the patient has a diagnosis of. 1.T11 burst fracture with severe collapse and kyphotic deformity (50 deg) 2.Severe thoracolumbar spine pain 3.s/p thoracolumbar injury 4. L4-5 Grade 1 spondylolisthesis 5. Debility secondary to above 6. LE weakness PLAN: DISCUSSION: -I discussed at length with the patient her clinical signs and sx as well as imaging and treatment options. She has failed bracing treatment for this fractrure as it has progressed in its collapse since 08/11 and has now caused her severe Thoracolumbar deformity, kyposis and pain with debility related. She continues to progress in her pain and she is starting to get weakness in proximal legs suggesting cord draping issues are starting due to the severe deformity she has. We discussed surgical options for her and she has elected to proceed as outlined below. SURGICAL RECOMMENDATION -URGENT OPEN TREATMENT OF T11 FRACTURE WITH T8-L2 STABILIZATION, FUSION, POSSIBLE T11 CORPECTOMY, WITH DEFORMITY CORRECTION. Surgical Procedure Risk Review Hanna Alvarenga is a 68 year old female presenting for evaluation of sudden onset of thoracolumbar spine pain after fall and injury with fracture T11 vertebral body. It was my pleasure to have seen and examined Ms. Alvarenga. In our visit today we have had a chance to go over subjective complaints, physical examination findings and treatments, including the natural course history without intervention and various interventional options. The imaging demonstrates severe progressive collapse of the T11 fracture with severe kyphotic deformity >50 deg with progressive deformity . On physical exam, Ms. Alvarenga demonstrates severe thoracolumbar spine pain, progressive pain, progressive debility related to her pain and deformity as well as new neurological signs with weakenss. I explained to the patient that as her condition progresses it could cause progressive neurological demise, damage, pain, deformity and ultimately compromise related to severe collapse of her vertebral column . At this time, based on the patients imaging and physical exam, I recommend surgery in the form or a: URGENT OPEN TREATMENT OF T11 FRACTURE WITH T8-L2 STABILIZATION, FUSION, POSSIBLE T11 CORPECTOMY, WITH DEFORMITY CORRECTION. . I discussed the risk and benefits of this procedure at length with Ms. Alvarenga. The patient and sonagreed to consider pursuing the procedure mentioned above. Plan: 1. URGENT OPEN TREATMENT OF T11 FRACTURE WITH T8-L2 STABILIZATION, FUSION, WITH DEFORMITY CORRECTION. 2. Follow up with PCP for surgical clearance urgently. 3. Review of surgical risks and benefits as well as an educational packet on the proposed surgical procedure. 4. URGENT imaging CT and MRI of the Thoracic and lumbar spine w/o contrast for further investigation of her current severe collapse and pathology. 5. Pre operative work up and labs CBC, BMP, PT/INR, CXR, EKG, Type and Screen. Risks: All surgical procedures come with inherent risks, including those related to positioning, anesthesia, intraoperative findings, and postoperative complications. It is important to understand that surgery does not come with any guarantee of a successful outcome as complications and adverse events are always possible. The patient was given a handout in office today discussing the surgical procedure and risks associated with the intervention, both of which were discussed with the patient. These risks include but are not limited to the following: ? Experiencing same, different or even worse symptoms in back, neck, arms, or legs compared to before surgery. ? Requiring further surgery or other forms of treatment presently or at some time in the future at same or other levels of the intended spine surgery. ? On an extreme but fortunately relatively rare basis severe complication such as blindness, stroke, heart attack, temporary and/or permanent nerve injury, paralysis, coma, or may occur, sometimes without known explanation. ? Surgical complications may include but are not limited to risk of infection, fluid accumulation in the surgical dissection site, including a seroma or hematoma, that requires additional surgery, wound drainage, bleeding, new numbness or weakness, vision changes/loss, spinal fluid leakage, non-healing and/or infected incision, headaches, difficulty or inability to swallow, h oarseness, hemopneumothorax, pneumothorax, impotence, retrograde ejaculation, vaginal dryness; injury to nerves, spinal cord, blood vessels, lymphatics or other vital organs (i.e., bowel injury, injury to the great vessels); heterotopic bone formation; complications related to the hardware such as screws, rods, cages including misplaced hardware, device failure, instrumentation at the wrong spine level, hardware fracture/breakage, or hardware loosening; vertebral failure of the spinal column above or below the newly placed hardware; retained surgical instrumentations or devices and the need for further surgery. ? Medical risks of the planned spine surgery include but are not limited to generalized Infections to the whole body or local areas outside of the surgical site (sepsis), heart attack, bleeding, anaphylaxis, meningitis, seizure, epilepsy, hearing loss, burn renee, laceration of the head or other areas of the body, bruising, hypersensitivity of the skin, bladder over distension; allergic reaction; shoulder injury related to positioning; fat, blood and air clots to other areas of the body like heart, lungs, brain; failure of internal organs such as lungs, kidneys, liver and excessive bleeding. If blood transfusions are necessary, note that transfusions may cause intolerance reactions such as anaphylaxis or other complex reactions. Despite best efforts, the results of spine surgery might not heal in terms of bone, soft tissues such as skin, fascia, ligaments, and joints. Additionally, in order to achieve best possible results, spine surgery may be carried out beyond the initially planned levels and involve decompression, fusion including insertion of hardware at levels other than the original intended area of surgical interest change some portions of the procedure in order to ensure the best possible outcomes. With spine surgery and spinal fusion, there are different off label uses of instrumentation (devices, implants and hardware) as well as biological substances (bone morphogenic proteins, demineralized bone matrix) as well as using extra bone from allograft sources (i.e. cadaver bone) or autograft (iliac crest bone, ribs, or the spine itself). The patient has been given information about these practices and their inherent risks and benefits. Racquel Cyr Physician Assistants are medically trained surgical providers who function in the outpatient, inpatient, and operating room setting under the direct supervision of the attending surgeon.They assist in the operating room with direct supervision of the attending surgeons. The patient has had a chance to review all the listed information, has been given print outs detailing this information, and has had all his/her questions answered to their satisfaction. It was my pleasure to have seen and examined Ms. Alvarenga. In our visit today we have had a chance to go over my understanding of our patient's current condition, the natural course history without intervention and various interventional options. Questions were invited and answered, and the patient wishes to proceed as outlined above. I have seen and examined the patient for 25 minutes and we have spent more than 50% of the time in repeat and detailed counseling about the patient's condition, its natural course history with out and as much as can be predicted with surgery and re-review of various surgical treatment options. In conclusion,Ms. Alvarenga and her spouse/partner requested we proceed with the above suggested surgery and are willing to accept risks and limitations of the suggested surgery as nature of the disease process and our best attempts at treatment for the condition. IMAGING -URGENT CT T AND L SPINE W/O -URGENT MRI T AND L SPINE W/O SURGICAL AUTHORIZATION AND RISK REVIEW PATIENT: Hanna Alvarenga DATE: 09/05/2024 PROCEDURE: URGENT OPEN TREATMENT OF T11 FRACTURE WITH T8-L2 STABILIZATION, FUSION, WITH DEFORMITY CORRECTION. Possible CPT CODES: - 27315: Open treatment and/or reduction of vertebral fracture(s) and/or dislocation(s), posterior approach, one fractured vertebra or dislocated segment; thoracic - 14939: Posterior segmental instrumentation (3 to 6 vertebral segments) - 81776: Insertion of interbody biomechanical device(s), each interspace -16771: Posterolateral fusion Thoracic spine -82853: Posterolateral fusion additional levels (*6) - 54796: Autograft for spine surgery (includes harvesting the graft); local (eg, ribs, spinous process, or laminar fragments) obtained from same incision - 12365: Osteotomy of spine, including discectomy, anterior approach, single vertebral segment; each additional segment (if corpectomy needed) ICD-10 codes remain accurate as previously listed: - S22.060A: Unstable burst fracture of T11-T12 vertebra, initial encounter - M40.204: Kyphosis, thoracic region (50 degrees) - M48.54: Collapsed vertebral body, thoracic region - M54.6: Pain in thoracic spine - M62.81: Muscle weakness (generalized) - M43.16: Spondylolisthesis, lumbar region MEDICAL NECESSITY RATIONALE: * Progressive Structural Failure: * T11 burst fracture with severe collapse Progressive kyphotic deformity measuring 50 degrees at fracture site Overall kyphosis of 89 degrees Failed conservative treatment with TLSO bracing Documented progression of collapse since initial injury * Neurological Findings: * New onset proximal leg weakness (4/4- out of 5) Asymmetric reflexes L4-5 dermatomal sensory changes Signs of potential cord compromise due to severe deformity * Functional Impact: * Unable to perform ADLs independently Requires ambulatory aid (cane) Cannot maintain upright posture Failed single leg stance Unable to perform squat test VAS pain score: 10/10 * Failed Conservative Treatment: * TLSO bracing with continued progression Pain medications ([place], Flexeril) Activity modification Progressive worsening despite conservative measures * Imaging Correlation: * XR evidence of severe burst compression deformity T11 Near complete collapse of vertebral body height Severe kyphotic deformity (50 degrees) at fracture site Evidence of column disruption Mobile L4-5 spondylolisthesis * Risk of Further Progression: * Progressive collapse documented Increasing neurological symptoms Worsening deformity Risk of neurological compromise High risk of further structural failure URGENCY RATIONALE: Surgical intervention is considered urgent due to: * Progressive neurological deficits Documented structural failure Failed conservative treatment Severe and progressive deformity Risk of permanent neurological compromise Significant functional decline The proposed surgical intervention is medically necessary and urgent due to the progressive nature of the deformity, new onset neurological symptoms, and failure of conservative treatment. The patient demonstrates both clinical and radiographic evidence of structural failure with neurological compromise requiring stabilization and deformity correction to prevent further deterioration and potential permanent neurological damage. FOLLOW UP: POST-OP PLAN AT NEXT VISIT: RECHECK PATIENT EDUCATION: Medications Reviewed: YES In our visit today Ms. Alvarenga and I have had a chance to go over my understanding of the patient's current condition, the natural course history without intervention and various interventional options. Questions were invited and answered, and the patient wishes to proceed as outlined above. I will be sure to keep you updated after Ms. Alvarenga returns here for further follow-up. Thank you again for your referral. Please do not hesitate to contact me if you have any further questions. Signed and authenticated by: Cedrick Allen [facility] [address] [place] [address] . This message is confidential, intended only for the named recipient(s) and may contain information that is privileged or exempt from disclosure under applicable law. If you are not the intended recipient(s), you are notified that the dissemination, distribution or copying of this information is prohibited. If you received this message in error, please notify the sender then delete this message. # SIGNED BY Cedrick Lockhart (GOO)11/08/2024 03:29PM Past Medical History Past Medical History: COPD, Osteoarthritis (OA), Thyroid Disorder Additional Past Medical History / Comment(s): hypothyroidism, T11 fracture after moving heavy items, arthritis bilat. hands History of Any Multi-Drug Resistant Organisms: None Reported Past Surgical History: Hernia Repair, Hysterectomy Additional Past Surgical History / Comment(s): breast augmentation 40 years ago Past Anesthesia/Blood Transfusion Reactions: Postoperative Nausea & Vomiting (PONV) Smoking Status: Current every day smoker - Past Family History Father Family Medical History: Cancer Additional Family Medical History / Comment(s): renal cancer Mother Additional Family Medical History / Comment(s): emphysema Medications and Allergies Home Medications Medication Instructions Recorded Confirmed Type Albuterol Sulfate [Proair Hfa] 2 puff INHALATION RT-QID PRN 10/11/21 11/02/24 History Fluticasone/Umeclidin/Vilanter 1 puff INHALATION RT-DAILY 10/11/21 11/02/24 History [Trelegy Ellipta 100-62.5-25] Levothyroxine Sodium [Synthroid] 125 mcg PO DAILY 10/11/21 11/02/24 History Loratadine-Pseudoeph 5-120 mg 1 tab PO Q12H PRN 10/11/21 11/02/24 History [Claritin-D 12 Hour] Ascorbic Acid [Vitamin C] 500 mg PO BID #60 tab 10/14/21 11/02/24 Rx Cholecalciferol [Vitamin D3 (25 100 mcg PO DAILY #100 tablet 10/14/21 11/02/24 Rx Mcg = 1000 Iu)] Nicotine 21Mg/24Hr Patch [Habitrol] 1 patch TRANSDERM DAILY #14 patch 10/14/21 11/02/24 Rx HYDROcodone/APAP 10-325MG [[place] 1 tab PO BID 11/02/24 11/02/24 History 10-325] Allergies Allergy/AdvReac Type Severity Reaction Status Date / Time No Known Allergies Allergy Verified 11/02/24 17:17 Physical Examination Osteopathic Statement: *. No significant issues noted on an osteopathic structural exam other than those noted in the History and Physical/Consult.
[~2024-11-09 07:13] MED LIST: TRANEXAMIC 1,000 MG/100ML-NACL 1,000 MG in SALINE 1 100ML.BAG IVPB PRN
[2024-11-09] MEDS: ACETAMINOPHEN TAB 500 MG TAB PO PRN (07:49)
[2024-11-09] MEDS: GABAPENTIN 300 MG CAP PO PRN (07:49)
[2024-11-09 08:06] LABS: Glucose,Whole Blood 82 mg/dL (70-110)
[2024-11-09] MEDS: ONDANSETRON 4 MG/2 ML VIAL IVP PRN (08:17)
[2024-11-09] MEDS: LACTATED RINGERS 1,000 ML IV SCH (08:17)
[2024-11-09] MEDS: IV FLUID CONTINUATION 1,000 ML IV ONE ×2 (08:22)
[2024-11-09] MEDS ORDERED: fentaNYL (PF) 50 MCG/ML 2 ML AMP ONE (08:55)
[2024-11-09] MEDS ORDERED: WATER FOR INJECTION, STERILE 10 ML VIAL IV ONE (08:55)
[2024-11-09] MEDS ORDERED: HYDROmorphone (PF) 1 MG/ML ONE (08:55)
[2024-11-09] MEDS ORDERED: LIDOCAINE 1% INJ 10MG/ML (20 ML MDV) ONE (08:55)
[2024-11-09] MEDS ORDERED: SUCCINYLCHOLINE CHLORIDE 200 MG/10 ML VIAL IV ONE (08:55)
[2024-11-09] MEDS ORDERED: TRANEXAMIC 1,000 MG/100ML-NACL PREMIX BAG ONE (08:55)
[2024-11-09] MEDS ORDERED: GLYCOPYRROLATE 0.2 MG/ML 2 ML VIAL ONE (08:55)
[2024-11-09] MEDS ORDERED: PROPOFOL 10 MG/ML 20 ML VIAL IV ONE (08:55)
[2024-11-09] MEDS ORDERED: LIDOCAINE 4% LTA KIT (4 ML) TOPICAL ONE (08:55)
[2024-11-09] MEDS ORDERED: ePHEDrine 50 MG/ML 1 ML VIAL ONE (08:55)
[2024-11-09] MEDS ORDERED: NEOSTIGMINE 1 MG/ML 10 ML VIAL ONE (08:55)
[2024-11-09] MEDS ORDERED: KETAMINE HCL IN 0.9 % NACL 50 MG/5 ML SYRINGE ONE (08:55)
[2024-11-09] MEDS ORDERED: ROCURONIUM 10 MG/ML (5 ML VIAL) IV ONE (08:55)
[2024-11-09] MEDS: THROMBIN (BOVINE) 5,000 UNIT VIAL TOPICAL ONE (09:32)
[2024-11-09] MEDS: GENTAMICIN 80 MG in SODIUM CHLORIDE 0.9% IRRIGATIO 3,000 ML IRRIGATION ONE (09:32)
[2024-11-09] MEDS: ceFAZolin 3,000 MG in SODIUM CHLORIDE 0.9% IRRIGATIO 3,000 ML IRRIGATION ONE (09:32)
[2024-11-09] MEDS: LACTATED RINGERS 1,000 ML IV ONE ×3 (11:46→13:45)
[2024-11-09] MEDS: VANCOMYCIN 1,000 MG VIAL MISCELLANE ONE (12:54)
--- NOTE | 2024-11-09 13:37 | XR ---
EXAMINATION TYPE: XR thoracic spine 1V, FL guidance operating room DATE OF EXAM: 11/09/2024 FLUOROSCOPY 1 MIN 46 SECS FL. DAP: 942.00 CgY CM2.Open Treatment Thoracic 11 Fracture with T8-L2 Stabilization [facility] Ryley Cyr, Workstation: [facility], 11/09/2024 1:35 PM
[2024-11-09] MEDS: KETOROLAC 15 MG/ML 1 ML VIAL IVP STA (14:09)
[2024-11-09] MEDS: HYDROmorphone 0.5 MG/0.5 ML SYRINGE IVP PRN ×2 (14:25→17:45)
[2024-11-09] MEDS ORDERED: NA PHOS,M-B/NA PHOS,DI-BA 133 ML ENEMA RECTAL PRN (14:29)
[2024-11-09] MEDS ORDERED: MAGNESIUM HYDROXIDE 2,400 MG/30 ML CUP PO PRN (14:29)
[2024-11-09] MEDS ORDERED: HYDROcodone/APAP 10-325MG 1 EACH TAB PO PRN (14:29)
--- NOTE | 2024-11-09 14:42 | P.OP ---
Date of Procedure: 11/09/24 Preoperative Diagnosis: 1. T11 BURST COMPRESSION FRACTURE, 80% COMPRESSION ANTERIOR WEDGE DEFORMITY 2. T7 VCF, 50% ANTERIOR WEDGE COMPRESSION 3. 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 SEVERE THORACIC BACK PAIN 5. LE WEAKNESS Postoperative Diagnosis: 1. T11 BURST COMPRESSION FRACTURE, 80% COMPRESSION ANTERIOR WEDGE DEFORMITY 2. T7 VCF, 50% ANTERIOR WEDGE COMPRESSION 3. 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 SEVERE THORACIC BACK PAIN 5. LE WEAKNESS Procedure(s) Performed: 1. OPEN TREATMENT T11 AND T7 FRACTURES 2. INTRADISCAL OSTEOTOMY, 3 COLUMN, T10/11 AND T11/12 FOR DEFORMITY CORRECTION 3. POSTEROLATERAL AND INTERBODY FUSION T10/11 AND T11/12 4. POSTEROLATEARAL INSTRUMENTED FUSION T8-T10 AND T12-L2 5. SEGMENTAL INSTRUMENTATION T8-L2 6. T9-10, T10-11, T11-12, T12-L1 BILATERAL LAMINECTOMY, COMPLETE FACETECTOMY AND FORAMINOTOMY FOR NEURAL DECOMPRESSION, DEFORMITY CORRECTION AND CAGE PLACEMENT 7. T7, T8, T9 T12, L1, L2 INTRAVERTEBRAL AUGMENTATION WITH CEMENT. 8. INSERTION OF BIOMECHANICAL DEVICES T10-11 AND T11-12, CAGES, X2 9. USE OF JACQUE NAVIGATION FOR ASSISTANCE IN ACCURATE PLACEMENT OF SCREWS USE OF IONM Implants: -JACQUE EVERST RODS AND SCREWS -GLOBUS INTRALIFT AND SABLE CAGES X2 -DBM PUTTY, DBM FIBER BOATS, AUTOGRAFT Anesthesia: JENNIFERA Surgeon: Kali Holbrook Low Pressure Firer #1: Ludin Shultz (WAS PRESENT AND ASSISTED WITH ALL ASPECTS OF THE CASE FROM POSITION TO DRESSING PLACEMENT) Estimated Blood Loss (ml): 800 IV fluids (ml): 1,800 Urine output (ml): 200 Pathology: other (T7 VERTEBRAL BODY) Condition: stable Disposition: PACU Indications for Procedure: Ms. Hanna Alvarenga, a 68-year-old female, presents with severe thoracolumbar pain (VAS 10/10) following a fall approximately 4 weeks ago, demonstrating progressive neurological deterioration and significant postural deformity. Imaging reveals a severe T11 burst compression fracture with near-complete vertebral body collapse, resulting in a 50-degree kyphotic deformity at the fracture site and overall thoracic kyphosis of 89 degrees. The patient has failed conservative management with TLSO bracing, experiencing worsening pain and functional decline. She now demonstrates proximal leg weakness (4/4- out of 5), asymmetric reflexes, and decreased L4-5 dermatomal sensation bilaterally. The patient requires a cane for ambulation, exhibits severe forward posture with inability to maintain upright alignment, and reports significant impairment in activities of daily living, corroborated by her son with whom she resides. Given the progressive structural failure, new onset neurological deficits, and failed conservative measures, the patient has been scheduled for urgent surgical intervention consisting of open treatment of T11 fracture with T8-L2 stabilization, fusion, possible T11 corpectomy, and deformity correction to prevent further neurological compromise and structural deterioration. PLANNED PROCEDURE: open treatment of T11 fracture with T8-L2 stabilization, fusion, possible T11 corpectomy, and deformity correction PERIOP NOTES: INPATIENT POSSIBLE ICU POST OP A LINE, CENTRAL LINE NEEDED CONSENT CONFIRMED, AND OK SITE MARKED FOR SURGERY Description of Procedure: OPEN TREATMENT T11 VERTEBRAL BODY FRACTURE WITH T8-L2 DECOMPRESSION AND FUSION WITH KYPHOSIS CORRECTION AND T10-11 AND T11-12 INTERBODY FUSION WITH T7 KYPHOPLASTY. The patient was seen and examined in the preoperative area. All preoperative protocols were followed. Informed consent was obtained, risks and benefits of the procedure were discussed at length. Risks including bleeding, infection, damage to the surrounding tissue and risk of re-operation were discussed with the patient. Risk of anesthesia up to and including was discussed with the patient. These are outlined in the risk review. They were willing to accept these risks and all of the risks of surgery. The patient was given a weight- based dose of antibiotics in the form of 2 g Ancef. The patient was seen and evaluated by the anesthesia team who deemed them fit for surgery. The site was marked, the patient was willing to proceed with the procedure. The patient was transferred to the operative suite by the Department of anesthesia. They were then drifted off to sleep by the department anesthesia and GETA was performed. The patient tolerated this well. Pre-positioning motors were obtained. Robb in place from the floor. Once confirmation of lines and ventilation, the patient was transferred to a prone Leon table very carefully. The head was secured and placed into an optimal position, x-ray confirmed this position. Post-positioning motors remained stable. All bony prominences including wrists, elbows, axilla, chest, hips, thighs, and feet were padded very well. Special attention was paid to the genitalia and these were padded accordingly. SCDs were placed on bilateral lower extremities and were connected. Arms were well padded and placed tucked at their side thumbs down. Once in position, we confirmed good ventilation capabilities and that lines were running appropriately. The patient's posterior thoracic spine was then exposed. Standard alcohol was used to clean the incision site and allowed to dry. C-arm was used to biomark the patient and confirm level for incision which was marked with a skin marker. Operative briefing was performed with all teams and everyone in agreement to proceed. The patient was then prepped and draped in a normal sterile fashion. Timeout was then performed and all parties were in agreement with the procedure to be performed. Midline skin incision was made over the previously bio-marked area from T8 to L2. Subperiosteal dissection was taken out over the lamina and transverse processes. We then placed a SP tracker on T7 for navigation and secured it. We obtained a 3D C-arm spin and registered it with navigation for assistance in accurate screw placement. Pedicle screws were then placed from T8 to L2 bilaterally using navigated instruments. Navigated lula was used to decorticate the facet joints. Then this was used to create marble polisher hand holes for each screw. A navigated tap was sent in followed by navigated measured screws. Once screws were placed, they were visualized on AP and LAT and were in good position. A second 3D C-arm spin confirmed placement of screws. The wound was then irrigated. We proceeded with T7 kyphoplasty under live fluoroscopic guidance with good fill and no extravasation. Screws were then cemented at T8, T9, T12, L1 and L2. Complete laminectomy, facetectomy and foraminotomies were performed from T9-L1 for decompression of neural elements. At T10-11 and T11-12, wide access was obtained bilaterally to allow for interbody work. Intradiscal Osteotomy, 3 column, was done at T10-11 and T11-12 for correction and complete disc removal. The disc spaces were prepared and sequential trials were used to determine appropriate cage sizes. Autograft and allograft were placed anterior within the disc spaces. Appropriately sized expandable cages were then placed at T10-11 and T11-12 under fluoroscopic guidance. Once the cages were in position, they were expanded to meet the endplates. Motors remained stable throughout. Temporary marybeth was placed and compression done to help with reduction. Cages were then expanded further for anterior column support and reduction of fracture and kyphosis. Rods were then sized, selected and contoured to maintain appropriate sagittal alignment. These were secured to the screws from L2 and sequentially reduced into T8 bilaterally with sequential reduced across the T11 fracture site for reduction and stabilization. Motors remained stable. Compression was done across the fracture as well for further reduction and sagittal correction. Set screws were then placed and final tightened. All set screws were placed and final tightened. Meticulous hemostasis was p erformed. Motors were run before and after decompression and remained stable. The wound was then copiously irrigated with 3 L of Ancef irrigation followed by 3 L of gentamicin irrigation followed by 3 bottles of Irricept through the case and 1 L betadine which was then washed with 3 L of normal sterile saline. Facet joints were further decorticated at each level. DBM fiber boats along with local autograft were placed in the posterolateral gutters. This was impacted into position for fusion. 2 g of powdered vancomycin was then placed deep within the wound and a deep drain was placed. We then proceeded with layered closure first in the deep fascia with #1 PDS then in the deep fascia followed by a running #1 stratafix. 0 Vicryl was used in the deep subq fascia and 2-0 in the superficial subq. Skin timothy then approximated skin edges. The wound edges approximated very well. The wound was then cleaned and dressed sterilely with an operative foam dressing 4 x 4 and Tegaderm. The drain had good suction. The patient was transferred back to their hospital bed atraumatically. Drain continued to hold suction. The patient was then awakened and extubated by the department of anesthesia having tolerated the procedure very well with no complications. They were transferred to the postoperative care unit in stable condition.
[2024-11-09] MEDS: DEXAMETHASONE SOD PHOSPHATE 4 MG/ML 1 ML VIAL IV ONE (16:27)
[2024-11-09 17:36] LABS: Basophils % (A) 0 %; Eosinophils % (A) 0 %; HCT 34.4 % (34.0-46.0); Lymphocytes # (A) 0.8 k/uL (1.0-4.8); Lymphocytes % (A) 5 %; MCH 31.4 pg (25.0-35.0); MCHC 32.1 g/dL (31.0-37.0); MCV 97.7 fL (80.0-100.0); Mean Platelet Volume 7.8; Monocytes # (A) 0.6 k/uL (0-1.0); Monocytes % (A) 4 %; Neutrophils # (A) 13.3 k/uL (1.3-7.7); Neutrophils % (A) 90 %; Platelet Count 211 k/uL (150-450); RBC 3.52 m/uL (3.80-5.40); RDW 13.2 % (11.5-15.5); WBC 14.9 k/uL (3.8-10.6)
[2024-11-09] MEDS: CYCLOBENZAPRINE 5 MG TAB PO PRN (17:44)
[2024-11-09] MEDS: 0.9% NACL WITH KCL 20 MEQ/L 1,000 ML IV SCH (17:53)
[2024-11-09] MEDS: KETOROLAC 15 MG/ML 1 ML VIAL IVP SCH (18:45)
[2024-11-09] MEDS: HYDROcodone/APAP 10-325MG 1 EACH TAB PO PRN (19:52)
[2024-11-09] MEDS ORDERED: LORATADINE-PSEUDOEPH 5-120 MG 1 EACH TAB.ER.12H PO PRN (23:03)
[2024-11-10] MEDS: HYDROmorphone 1 MG/ML 1 ML SYRINGE IVP PRN (01:28)
[2024-11-10] MEDS: GABAPENTIN 300 MG CAP PO SCH (05:57)
[2024-11-10] MEDS: LEVOTHYROXINE 125 MCG TAB PO SCH (05:57)
[2024-11-10] MEDS ORDERED: ALBUTEROL NEBULIZED 2.5 MG/3 ML INHALATION PRN (06:14)
--- NOTE | 2024-11-10 07:30 | P.PN ---
Subjective Progress Note Date: 11/10/24 Principal diagnosis: 1.T11 burst fracture with severe collapse and kyphotic deformity (50 deg) 2.Severe thoracolumbar spine pain 3.s/p thoracolumbar injury 4. L4-5 Grade 1 spondylolisthesis 5. Debility secondary to above 6. LE weakness Patient seen and examined this morning. Patient is resting comfortably in bed. Patient does report that she has sharp aching thoracic pain, she does states she was just provided pain medication. Encourage patient to utilize ice therapy to assist with pain management and additional swelling. Informed patient that physical therapy will begin to work with her today. Encourage patient to be up in chair for all meals. Surgical incision to the thoracic spine, dressing is clean dry and intact with Hemovac present with documented 220 mL output overnight. Edwards catheter may be removed once patient is up and about. Encourage patient to utilize incentive spirometer 10 times per hour while awake. No acute concerns. Objective - Vital Signs Vital signs: Vital Signs Temp 98.4 F 11/10/24 01:49 Pulse 83 11/10/24 01:49 Resp 15 11/10/24 01:49 BP 91/52 11/10/24 01:49 Pulse Ox 95 11/10/24 01:49 FiO2 Intake & Output 11/09/24 11/10/24 11/10/24 18:59 06:59 18:59 Intake Total 3352 Output Total 1175 1920 Balance 2177 -1920 Weight 59 kg Intake: IV 3352 Output: Drainage 220 Medial Back 220 Urine 375 1700 Estimated Blood Loss 800 - Exam Physical Examination General: The patient is awake and alert, in no acute distress Skin: Skin is warm and dry with no obvious rashes or lesions. Surgical incision to the thoracic spine, dressing is clean dry and intact with Hemovac present with 220 mL output documented overnight. Eye: Pupils are equal, round and reactive to light, extra-ocular movements are intact; there is normal conjunctiva bilaterally. Neck: The neck is supple, there is no tenderness and ROM intact. Cardiovascular: There is a regular rate and rhythm. No murmur, rub or gallop is appreciated. Respiratory: Respirations are non-labored, breath sounds are equal. Gastrointestinal: Soft, non-distended, non-tender abdomen. Back: There is no tenderness to palpation in the midline, paralumbar, parathoracic or buttocks region. There is no obvious deformity . Musculoskeletal: ROM limited secondary to pain and stiffness from surgical procedure. Right: Shoulder abduction 5/5, elbow flexors 5/5, wrist dorsiflexors 5/5. finger abductor 5/5, clinical resource coordinator 5/5, hip flexor 4/5, knee flexor 4/5, ankle dorsiflexor 5/5, ankle plantarflexion 5/5 and extensor halluci s 5/5. Left: Shoulder abduction 5/5, elbow flexors 5/5, wrist dorsiflexors 5/5. finger abductor 5/5, clinical resource coordinator 5/5, hip flexor 4/5, knee flexor 4/5, ankle dorsiflexor 5/5, ankle plantarflexion 5/5 and extensor hallucis 5/5. Neurological: CN 2-12 intact. There are no obvious motor or sensory deficits. Movement and coordination equal and intact. Sensory exam to light touch intact C5-T1 and intact from L2-S1. Reflexes 2/4 in bilateral upper and lower extremities. Negative Hoffmans, babinski, and clonus signs. Psychiatric: Cooperative, appropriate mood & affect, normal judgment. - Labs CBC & Chem 7: 11/09/24 17:08 Labs: Abnormal Lab Results - Last 24 Hours (Table) 11/09/24 Range/Units 17:08 WBC 14.9 H (3.8-10.6) k/uL RBC 3.52 L (3.80-5.40) m/uL Hgb 11.0 L (11.4-16.0) gm/dL Neutrophils # 13.3 H (1.3-7.7) k/uL Lymphocytes # 0.8 L (1.0-4.8) k/uL Assessment and Plan Assessment: Postop day 1: Open treatment T11 vertebral body fracture with T8-L2 decompression and fusion with kyphosis correction and T10-T11 and T11-T12 inter body fusion with T7 kyphoplasty Plan: -Appreciate clinical operations consultant and team management. -Activity: Ambulate QID, OOB all meals, up and about, limit lifting bending twisting to less than 5 lbs. Use walker or cane if needed for stability. -Daily PT/OT, increase ambulation strength and balance. -Pain control: Adequate at this time -Meds: reviewed -GI ppx: senna, Miralax -DC edwards when up and about, bedside commode if needed -DVT PPX: Mechanical -Hygiene: Maintain incision clean and dry. May change dressing as needed, please document in notes if performed. -Drains: Maintain for now. Continue to monitor and record output q shift. -Encourage IS 10x/hr -Dispo: Clinically pending *I reviewed and discussed this case with my attending Dr. Holbrook, whom has reviewed this chart and films and is in agreement with assessment and plan of care as outlined above. I have personally seen and examined the patient, performed the documentation and the assessment and plan as written. Number of minutes spent on the visit:20m
[2024-11-10] MEDS: NICOTINE 21MG/24HR PATCH TRANSDERM SCH (08:36)
[2024-11-10] MEDS: ASPIRIN 81 MG PO SCH (08:36)
[2024-11-10] MEDS: ASCORBIC ACID 500 MG TAB PO SCH (08:36)
[2024-11-10] MEDS: SENNOSIDES-DOCUSATE SODIUM 1 EACH TAB PO SCH (08:36)
[2024-11-10] MEDS: CHOLECALCIFEROL 25 MCG (1000 IU) TABLET PO SCH (08:36)
[2024-11-10] MEDS: SYMBICORT 80-4.5 MCG INHALER INHALATION SCH (08:48)
[2024-11-10] MEDS: IPRATROPIUM 0.5 MG/2.5 ML NEBU INHALATION SCH (08:49)
[2024-11-10 08:51] LABS: BUN/Creat Ratio 12.17 Ratio (12.00-20.00); Blood Urea Nitrogen 7.3 mg/dL (9.0-27.0); Calcium 7.9 mg/dL (8.7-10.3); Carbon Dioxide 25.8 mmol/L (21.6-31.8); Chloride 107 mmol/L (96-109); Glucose 96 mg/dL (70-110); Potassium 4.4 mmol/L (3.5-5.5); Sodium 140 mmol/L (135-145)
--- NOTE | 2024-11-10 09:09 | CT ---
EXAMINATION TYPE: CT thor lumbar spine wo con DATE OF EXAM: 11/10/2024 8:06 AM COMPARISON: None. CLINICAL INDICATION: Female, 68 years old with history of s/p thoracic/lumbar fusion, s/p thoracic/sylvester mbar fusion, TECHNIQUE: Contiguous axial scanning of the thoracic without IV contrast. Coronal and sagittal recon structions performed. CT DLP: 857.2 mGycm, Automated exposure control for dose reduction was used. FINDINGS: Counting from the first rib, there appear to be 12 rib bearing thoracic vertebral bodies and 6 lumbar type vertebral bodies. 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 Baastrup's disease. Hypertrophic facet arthropathy mid to lower lumbar spine with degenerative anterolisthesis L5-L6. Rem aining alignment is maintained. Patient status post T9-L3 posterior and interbody lumbar fusion. Vertebral plasty change along the le vels. Superior endplate deformity T12 with minimal retropulsion into the ventral spinal canal noted. By CT, no evident canal compromise. T10-L1 laminectomy changes. Posterior midline skin timothy. Soft tissue swelling and soft tissue air related to recent operation. Moderate left neuroforaminal stenosis T9-T10 and T7-T8. Moderate emphysematous change and a small right pleural effusion. IMPRESSION: 1. NOTE THAT THERE APPEARS TO BE 6 LUMBAR TYPE VERTEBRAL BODIES. STATUS POST T9-L3 POSTERIOR AND INTE RBODY LUMBAR FUSION ALONG WITH VERTEBROPLASTY CHANGE; T10-L1 LAMINECTOMY CHANGES. 2. Hypertrophic facet arthropathy mid to lower lumbar spine with Baastrup's disease and a degenerativ e grade 1 anterolisthesis L5-L6. 3. Moderate left neuroforaminal stenosis T7-T8 and T9-T10. [facility], Workstation: [id number], 11/10/2024 9:07 AM
[2024-11-10 12:23] LABS: Basophils % (A) 1 %; Eosinophils # (A) 0.1 k/uL (0-0.7); Eosinophils % (A) 1 %; HCT 31.2 % (34.0-46.0); HGB 10.2 gm/dL (11.4-16.0); Lymphocytes # (A) 0.7 k/uL (1.0-4.8); Lymphocytes % (A) 7 %; MCH 32.2 pg (25.0-35.0); MCHC 32.7 g/dL (31.0-37.0); MCV 98.4 fL (80.0-100.0); Mean Platelet Volume 10.5; Monocytes # (A) 0.6 k/uL (0-1.0); Monocytes % (A) 7 %; Neutrophils # (A) 7.8 k/uL (1.3-7.7); Neutrophils % (A) 85 %; Platelet Count 188 k/uL (150-450); RBC 3.17 m/uL (3.80-5.40); RDW 13.3 % (11.5-15.5); WBC 9.2 k/uL (3.8-10.6)
[2024-11-10 14:53] VITALS: BMI 23.8
--- NOTE | 2024-11-10 19:08 | P.CONS ---
History of Present Illness - Reason for Consult Consult date: 11/10/24 Medical management status post decompression and fusion - History of Present Illness This is a 68-year-old female who was admitted under orthopedic services for T11 burst fracture with severe collapse and kyphosis. Patient is status post open treatment T11 vertebral body fracture with T8-11 decompression and fusion with kyphosis correction along with T11-T12 interbody fusion with kyphoplasty at the T7. Patient follows with Dr. Zafar in the outpatient setting with a past medical history of COPD, osteoarthritis, thyroid, current everyday smoker. Patient denies any illicit drug use or significant alcohol use. Patient is postop day 1 sitting up in the chair falling asleep during conversation reports significant pain. Patient awaiting to work with physical therapy. Plan is to return home on discharge and has support services in the home. REVIEW OF SYSTEMS: CONSTITUTIONAL: No fever, no malaise, reports of fatigue. HEENT: No recent visual problems or hearing problems. Denied any sore throat. CARDIOVASCULAR: No chest pain, orthopnea, PND, no palpitations, no syncope. PULMONARY: No shortness of breath, no cough, no hemoptysis. GASTROINTESTINAL: No diarrhea, no nausea, no vomiting, no abdominal pain. NEUROLOGICAL: No headaches, no weakness, no numbness. HEMATOLOGICAL: Denies any bleeding or petechiae. GENITOURINARY: Denies any burning micturition, frequency, or urgency. MUSCULOSKELETAL/RHEUMATOLOGICAL: Reports significant back pain and generalized weakness ENDOCRINE: Denies any polyuria or polydipsia. The rest of the 14-point review of systems is negative. PHYSICAL EXAMINATION: GENERAL: The patient is asleep although easily arousable alert and oriented x3, not in any acute distress. Well developed, thin built, appears older than stated age HEENT: Pupils are round and equally reacting to light. EOMI. No scleral icterus. No conjunctival pallor. Normocephalic, atraumatic. No pharyngeal erythema. No thyromegaly. CARDIOVASCULAR: S1 and S2 muffled PULMONARY: Diminished breath sounds bilaterally otherwise chest is clear to auscultation, no wheezing or crackles. ABDOMEN: Soft, nontender, nondistended, normoactive bowel sounds. No palpable organomegaly. MUSCULOSKELETAL: No joint swelling or deformity. EXTREMITIES: No cyanosis, clubbing, or pedal edema. NEUROLOGICAL: Gross neurological examination did not reveal any focal deficits. Diffusely weak SKIN: No rashes. Assessment: T11 burst fracture with severe collapse and kyphosis, status post T11 vertebral body fracture with T8-11 decompression and fusion with kyphosis correction at the T7 History of COPD, not in exacerbation History of osteoarthritis Hypothyroidism Continued ongoing nicotine dependence GI prophylaxis DVT prophylaxis Full code Plan: Patient admitted under orthopedic services status post decompression and fusion with kyphosis correction, postop day 1 Patient continuing to report pain and awaiting to work with PT/OT therapy Medications reviewed and resumed as appropriate including inhalers as patient does have history of COPD. Not in exacerbation at this time Encourage incentive spirometer use at least 10 times every hour while awake Encouraged increase activity as tolerated with restrictions per orthopedics Continue indwelling Robb catheter for now until mobile and consider trial voiding continue as needed bowel regimen Thank you kindly for this consultation. We will continue to follow with orthopedics during hospitalization. The impression and plan of care has been dictated by Tosin Lawrence, Nurse Practitioner as directed. Dr. Lucie MD I have performed a history and examination and MDM of this patient, discussed the same with the dictator, and agree with the dictator's assessment and plan as written ,documented as a scribe. Based on total visit time, I have performed more than 50% of the visit. Past Medical History Past Medical History: COPD, Osteoarthritis (OA), Thyroid Disorder Additional Past Medical History / Comment(s): hypothyroidism, T11 fracture after moving heavy items, arthritis bilat. hands History of Any Multi-Drug Resistant Organisms: None Reported Past Surgical History: Hernia Repair, Hysterectomy Additional Past Surgical History / Comment(s): breast augmentation 40 years ago Past Anesthesia/Blood Transfusion Reactions: Postoperative Nausea & Vomiting (PONV) Past Psychological History: No Psychological Hx Reported Smoking Status: Current every day smoker Past Alcohol Use History: None Reported Additional Past Alcohol Use History / Comment(s): smokes 1 ppd, started smoking 1966 Past Drug Use History: None Reported - Past Family History Father Family Medical History: Cancer Additional Family Medical History / Comment(s): renal cancer Mother Additional Family Medical History / Comment(s): emphysema Medications and Allergies Home Medications Medication Instructions Recorded Confirmed Type Albuterol Sulfate [Proair Hfa] 2 puff INHALATION RT-QID PRN 10/11/21 11/09/24 History Fluticasone/Umeclidin/Vilanter 1 puff INHALATION RT-DAILY 10/11/21 11/09/24 History [Trelegy Ellipta 100-62.5-25] Levothyroxine Sodium [Synthroid] 125 mcg PO DAILY 10/11/21 11/09/24 History Loratadine-Pseudoeph 5-120 mg 1 tab PO Q12H PRN 10/11/21 11/09/24 History [Claritin-D 12 Hour] Ascorbic Acid [Vitamin C] 500 mg PO BID #60 tab 10/14/21 11/09/24 Rx Cholecalciferol [Vitamin D3 (25 100 mcg PO DAILY #100 tablet 10/14/21 11/09/24 Rx Mcg = 1000 Iu)] Nicotine 21Mg/24Hr Patch [Habitrol] 1 patch TRANSDERM DAILY #14 patch 10/14/21 11/09/24 Rx HYDROcodone/APAP 10-325MG [[place] 1 tab PO BID 11/02/24 11/09/24 History 10-325] Allergies Allergy/AdvReac Type Severity Reaction Status Date / Time No Known Allergies Allergy Verified 11/09/24 07:37 Physical Exam Vitals: Vital Signs Temp Pulse Pulse Resp BP BP Pulse Ox 11/10/24 06:52 98.8 F 16 112/55 11/10/24 01:49 98.4 F 83 15 91/52 95 11/09/24 20:47 65 103/59 98 11/09/24 19:48 83 99/41 97 11/09/24 18:47 62 99/63 100 11/09/24 18:18 59 L 88/43 100 11/09/24 17:48 82 93/47 98 11/09/24 17:32 74 89/46 99 11/09/24 17:17 61 92/53 99 11/09/24 17:02 71 89/47 95 11/09/24 16:47 67 92/49 95 11/09/24 16:30 90 16 105/63 95 11/09/24 16:15 75 16 103/57 95 11/09/24 16:00 77 16 100/53 99 11/09/24 15:45 76 16 108/57 95 11/09/24 15:30 69 16 112/57 95 11/09/24 15:15 78 16 113/58 100 11/09/24 15:00 60 16 112/59 100 11/09/24 14:45 64 16 106/57 99 11/09/24 14:30 62 16 117/58 100 11/09/24 14:15 77 16 116/59 99 11/09/24 14:05 74 16 107/53 99 11/09/24 13:50 98.1 F 68 14 88/51 97 Intake and Output 11/09/24 11/10/24 11/10/24 22:59 06:59 14:59 Intake Total 300 Output Total 175 1920 Balance 125 -1920 Intake: IV 300 Output: Drainage 220 Medial Back 220 Urine 175 1700 Other: Voiding Method Indwelling Catheter Weight 59 kg Results CBC & Chem 7: 11/10/24 04:14 11/10/24 04:14 Labs: Abnormal Lab Results - Last 24 Hours (Table) 11/09/24 11/10/24 11/10/24 Range/Units 17:08 04:14 04:14 WBC 14.9 H (3.8-10.6) k/uL RBC 3.52 L 3.17 L (3.80-5.40) m/uL Hgb 11.0 L 10.2 L (11.4-16.0) gm/dL Hct 31.2 L (34.0-46.0) % Neutrophils # 13.3 H 7.8 H (1.3-7.7) k/uL Lymphocytes # 0.8 L 0.7 L (1.0-4.8) k/uL BUN 7.3 L (9.0-27.0) mg/dL Calcium 7.9 L (8.7-10.3) mg/dL
[2024-11-11] MEDS: polyethylene glycoL 3350 17 GM POWD.PACK PO SCH (11:21)
[2024-11-11] MEDS: IPRATROPIUM-ALBUTEROL 3 ML NEB INHALATION SCH (11:44)
--- NOTE | 2024-11-11 12:16 | P.PN ---
Subjective Progress Note Date: 11/11/24 Principal diagnosis: s/p open treatment T11 vertebral body fracture with T8-L2 decompression and fusion with kyphosis correction and T10-T11 and T11-T12 interbody fusion with T7 kyphoplasty Patient evaluated today at bedside, she is resting in the lateral position in her hospital bed. Patient is feeling a lot better today she states. The drain output seems to have decreased. She has continued to work with physical therapy. She denies any headaches, lightheadedness, chest pain or shortness of breath Objective - Vital Signs Vital signs: Vital Signs Temp 99.3 F 11/11/24 06:05 Pulse 95 11/11/24 06:05 Resp 18 11/11/24 11:05 BP 108/62 11/11/24 06:05 Pulse Ox 91 L 11/11/24 06:05 FiO2 Intake & Output 11/10/24 11/11/24 11/11/24 18:59 06:59 18:59 Intake Total 320 Output Total 150 1520 830 Balance -150 -1520 -510 Weight 59 kg Intake: Oral 320 Output: Drainage 150 70 30 Medial Back 150 70 30 Urine 1450 800 Other: Voiding Method Indwelling Catheter Indwelling Catheter Indwelling Catheter # Bowel Movements 0 - Exam Gen: AOx3, NAD VSS stable at this time Integument: Postop dressing was removed today, timothy are all in good position and condition. 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/5 strength appreciated bilateral lower extremities with hip flexion, knee extension, knee flexion, plantarflexion, dorsiflexion, EHL, FHL Reflexes: 2/4 in all UE and LE Negative Salbador's bilaterally Negative Babinski bilaterally Negative clonus bilaterally - Labs CBC & Chem 7: 11/10/24 04:14 11/10/24 04:14 Labs: Abnormal Lab Results - Last 24 Hours (Table) 11/10/24 Range/Units 04:14 RBC 3.17 L (3.80-5.40) m/uL Hgb 10.2 L (11.4-16.0) gm/dL Hct 31.2 L (34.0-46.0) % Neutrophils # 7.8 H (1.3-7.7) k/uL Lymphocytes # 0.7 L (1.0-4.8) k/uL Assessment and Plan Assessment: Postoperative day #2 status post open treatment T11 vertebral body fracture with T8-L2 decompression and fusion with kyphosis correction and T10-T11 and T11-T12 interbody fusion with T7 kyphoplasty Plan: Pain control, continue with current medications. Continue stool softeners Monitor for urinary retention, urinary catheter was removed earlier today Monitor drain output Monitor surgical dressing, new dressing was placed today at bedside Will discuss with office staff TLSO brace status Weight-bear as tolerated, recommend use of walker. No bending, lifting or twisting Continue PT/OT DVT prophylaxis, VERNON hose and compression stockings along with 81 mg aspirin daily Medical recommendations appreciated Pending drain output over the next 24 hours, hopeful discharge to home with home health care on 09/12/2025 discharge planning: Time with Patient: Less than 30
[2024-11-11] MEDS: CALCIUM CARBONATE 500 MG CHEWABLE PO PRN (20:34)
[2024-11-11] MEDS: ONDANSETRON 4 MG/2 ML VIAL IVP PRN (20:34)
[2024-11-12] MEDS: PANTOPRAZOLE 40 MG TABLET PO SCH (06:49)
--- NOTE | 2024-11-12 07:11 | XR ---
EXAMINATION TYPE: XR chest 1V portable DATE OF EXAM: 11/12/2024 6:58 AM COMPARISON: 10/14/2021 CLINICAL INDICATION: Female, 68 years old with history of shortness of breath, , FINDINGS: Bilateral breast implants. Heart mildly enlarged. Diffuse interstitial density. There is some patchy opacity along the periphery of the right lower lung. Thoracolumbar fusion hardware partially visualiz ed. No sizable pleural effusion. IMPRESSION: 1. Correlate for CHF with pulmonary vascular congestion. 2. Patchy edema versus infiltrate at the periphery of the right lower lung. [facility], , 11/12/2024 7:08 AM
--- NOTE | 2024-11-12 09:31 | P.PN ---
Subjective Progress Note Date: 11/11/24 - Reason for Consult Consult date: 11/10/24 Medical management status post decompression and fusion - History of Present Illness This is a 68-year-old female who was admitted under orthopedic services for T11 burst fracture with severe collapse and kyphosis. Patient is status post open treatment T11 vertebral body fracture with T8-11 decompression and fusion with kyphosis correction along with T11-T12 interbody fusion with kyphoplasty at the T7. Patient follows with Dr. Zafar in the outpatient setting with a past medical history of COPD, osteoarthritis, thyroid, current everyday smoker. Patient denies any illicit drug use or significant alcohol use. Patient is postop day 1 sitting up in the chair falling asleep during conversation reports significant pain. Patient awaiting to work with physical therapy. Plan is to return home on discharge and has support services in the home. 11/11/2024 Patient is seen in follow-up today status post surgical intervention with orthopedics. Patient is currently sleeping in bed although arousable. Breath sounds are congested and patient is requiring oxygen although does not normally wear oxygen outpatient. Patient is a smoker and does have history of COPD does not appear to be exacerbated at this time. Will obtain a chest x-ray and strongly encouraged incentive spirometer use and sitting up in the chair more frequently. Patient work with physical therapy as she reports she will be going home on discharge. Will add DuoNebs 4 times daily and continue with her inhalers. Review of systems: Constitutional: No reports of fatigue, fever, or chills Cardiovascular: No reports of chest pain or palpitations Respiratory: No reports of shortness of breath reports occasional cough GI: No reports of nausea, vomiting, or diarrhea : No reports of dysuria or retention Neurovascular: reports of generalized weakness and continued back pain All medications have been reviewed The rest of the 14-point review of systems is negative. PHYSICAL EXAMINATION: GENERAL: The patient is asleep although easily arousable alert and oriented x3, not in any acute distress. Well developed, thin built, appears older than stated age HEENT: Pupils are round and equally reacting to light. EOMI. No scleral icterus. No conjunctival pallor. Normocephalic, atraumatic. No pharyngeal erythema. No thyromegaly. CARDIOVASCULAR: S1 and S2 muffled PULMONARY: Diminished breath sounds bilaterally with some bronchial congestion and some expiratory wheezing noted. No crackles or rhonchi appreciated at this time ABDOMEN: Soft, nontender, nondistended, normoactive bowel sounds. No palpable or ganomegaly. MUSCULOSKELETAL: No joint swelling or deformity. EXTREMITIES: No cyanosis, clubbing, or pedal edema. NEUROLOGICAL: Gross neurological examination did not reveal any focal deficits. Diffusely weak SKIN: No rashes. Assessment: T11 burst fracture with severe collapse and kyphosis, status post T11 vertebral body fracture with T8-11 decompression and fusion with kyphosis correction at the T7 Acute hypoxic respiratory failure, likely secondary to volume overload. Will obtain a chest x-ray History of COPD, not in exacerbation History of osteoarthritis Hypothyroidism Continued ongoing nicotine dependence GI prophylaxis DVT prophylaxis Full code Plan: Patient admitted under orthopedic services status post decompression and fusion with kyphosis correction, patient continues to report significant pain with orthopedics to manage. Patient is lethargic and sleeping most of the day per nursing staff Recommend PT/OT therapy daily as patient will be going home on discharge she r eports Medications reviewed and resumed as appropriate including inhalers as patient does have history of COPD. Not in exacerbation at this time. Patient is having some wheezing and upper bronchial congestion appears to be pulmonary congestion. Will obtain a chest x-ray. Patient is wearing 2 L of oxygen via nasal cannula and does not wear oxygen normally. Per nursing staff patient is not doing incentive spirometer and has been reinforced multiple times and strongly encouraged at least 10 times every hour while awake. Also encouraged patient to sit up in the chair for all meals and most of the day Encouraged increase activity as tolerated with restrictions per orthopedics Robb catheter has been removed and awaiting to void continue as needed bowel regimen Thank you kindly for this consultation. We will continue to follow with orthopedics during hospitalization. The impression and plan of care has been dictated by Tosin Lawrence, Nurse Practitioner as directed. Dr. Lucie MD I have performed a history and examination and MDM of this patient, discussed the same with the dictator, and agree with the dictator's assessment and plan as written ,documented as a scribe. Based on total visit time, I have performed more than 50% of the visit. Objective - Vital Signs Vital signs: Vital Signs Temp 99.3 F 11/11/24 06:05 Pulse 95 11/11/24 06:05 Resp 18 11/11/24 06:05 BP 108/62 11/11/24 06:05 Pulse Ox 91 L 11/11/24 06:05 FiO2 Intake & Output 11/10/24 11/11/24 11/11/24 18:59 06:59 18:59 Intake Total 120 Output Total 150 1520 830 Balance -150 -1520 -710 Weight 59 kg Intake: Oral 120 Output: Drainage 150 70 30 Medial Back 150 70 30 Urine 1450 800 Other: Voiding Method Indwelling Catheter Indwelling Catheter # Bowel Movements 0 - Labs CBC & Chem 7: 11/10/24 04:14 11/10/24 04:14 Labs: Abnormal Lab Results - Last 24 Hours (Table) 11/10/24 Range/Units 04:14 RBC 3.17 L (3.80-5.40) m/uL Hgb 10.2 L (11.4-16.0) gm/dL Hct 31.2 L (34.0-46.0) % Neutrophils # 7.8 H (1.3-7.7) k/uL Lymphocytes # 0.7 L (1.0-4.8) k/uL
--- NOTE | 2024-11-12 09:58 | P.PN ---
Subjective Progress Note Date: 11/12/24 Principal diagnosis: s/p open treatment T11 vertebral body fracture with T8-L2 decompression and fusion with kyphosis correction and T10-T11 and T11-T12 interbody fusion with T7 kyphoplasty Patient evaluated today at bedside, she is resting in the lateral position in her hospital bed. Discussed with nursing prior to seeing patient, internal medicine has evaluated her. I because she did have a rough night, her O2 sats were significantly decreased, she did also develop some confusion. Multiple test have been ordered by internal medicine, I also ordered a stat CBC and CMP. Patient's pain medication has also been adjusted. Her TLSO brace was delivered yesterday she denies any headaches, lightheadedness, chest pain or shortness of breath Objective - Vital Signs Vital signs: Vital Signs Temp 97.9 F 11/12/24 07:01 Pulse 84 11/12/24 08:51 Resp 18 11/12/24 07:01 BP 99/57 11/12/24 07:01 Pulse Ox 96 11/12/24 07:01 FiO2 Intake & Output 11/11/24 11/12/24 11/12/24 18:59 06:59 18:59 Intake Total 920 Output Total 830 Balance 90 Intake: Oral 920 Output: Drainage 30 Medial Back 30 Urine 800 Other: Voiding Method Indwelling Catheter Toilet Bedside Commode # Voids 1 2 - Exam Gen: AOx3, NAD VSS stable at this time Integument: Postop dressing in good position and condition. Drain is in good position and condition Palpation: Mild tenderness with palpation throughout the thoracic spine ROM: Full range of motion all major muscle groups of the bilateral upper and lower extremities, no focal facets appreciate Sensory Exam: Senory exam to light touch is intact C5-T1 Senosry exam to light touch is intact L2-S1 Motor: 5/5 strength in bilateral upper extremities with shoulder elevation, shoulder abduction, elbow extension, elbow flexion, wrist extension, wrist flexion, systems planner 4/5 strength appreciated bilateral lower extremities with hip flexion, knee extension, knee flexion, plantarflexion, dorsiflexion, EHL, FHL Reflexes: 2/4 in all UE and LE Negative Salbador's bilaterally Negative Babinski bilaterally Negative clonus bilaterally - Labs CBC & Chem 7: 11/10/24 04:14 11/10/24 04:14 Assessment and Plan Assessment: Postoperative day #3 status post open treatment T11 vertebral body fracture with T8-L2 decompression and fusion with kyphosis correction and T10-T11 and T11-T12 interbody fusion with T7 kyphoplasty Plan: Pain control, will adjust oral medications Plan for dressing change later this afternoon, will also remove drain at that time LSO brace when up and ambulating Await lab results Weight-bear as tolerated, recommend use of walker. No bending, lifting or twisting Continue PT/OT DVT prophylaxis, VERNON hose and compression stockings along with 81 mg aspirin daily Medical recommendations appreciated Will continue to follow during hospital stay Time with Patient: Less than 30
[2024-11-12] MEDS: IPRATROPIUM-ALBUTEROL 3 ML NEB INHALATION SCH (10:01)
[2024-11-12 11:04] LABS: Basophils % (A) 0 %; Eosinophils # (A) 0.1 k/uL (0-0.7); Eosinophils % (A) 1 %; HCT 28.5 % (34.0-46.0); HGB 9.3 gm/dL (11.4-16.0); Lymphocytes # (A) 0.5 k/uL (1.0-4.8); Lymphocytes % (A) 6 %; MCH 31.8 pg (25.0-35.0); MCHC 32.7 g/dL (31.0-37.0); MCV 97.1 fL (80.0-100.0); Mean Platelet Volume 7.7; Monocytes # (A) 0.4 k/uL (0-1.0); Monocytes % (A) 5 %; Neutrophils # (A) 6.7 k/uL (1.3-7.7); Neutrophils % (A) 86 %; Platelet Count 162 k/uL (150-450); RBC 2.94 m/uL (3.80-5.40); RDW 12.6 % (11.5-15.5); WBC 7.7 k/uL (3.8-10.6)
[2024-11-12] MEDS: FUROSEMIDE 10 MG/ML 2 ML VIAL IV ONE (11:09)
[2024-11-12] MEDS: HYDROcodone/APAP 10-325MG 1 EACH TAB PO PRN (11:10)
[2024-11-12 11:25] LABS: ALT 8 U/L (4-34); AST 18 U/L (14-36); African American GFR (CKD) >90 (>60 ml/min/1.73 sqM); Albumin 2.6 g/dL (3.5-5.0); Albumin/Globulin Ratio 1.2; Alkaline Phosphatase 76 U/L (38-126); Anion Gap -3 mmol/L; Blood Urea Nitrogen 8 mg/dL (7-17); Calcium 8.6 mg/dL (8.4-10.2); Carbon Dioxide 39 mmol/L (22-30); Chloride 101 mmol/L (98-107); Globulin 2.1 g/dL; Glucose 105 mg/dL (74-99); Non-African American GFR(CKD) >90 (>60 ml/min/1.73 sqM); Potassium 4.2 mmol/L (3.5-5.1); Sodium 137 mmol/L (137-145); Total Bilirubin 0.2 mg/dL (0.2-1.3); Total Protein 4.7 g/dL (6.3-8.2)
[2024-11-12] MEDS: KETOROLAC 15 MG/ML 1 ML VIAL IVP PRN (14:58)
--- NOTE | 2024-11-13 09:28 | P.PN ---
Subjective Progress Note Date: 11/12/24 - Reason for Consult Consult date: 11/10/24 Medical management status post decompression and fusion - History of Present Illness This is a 68-year-old female who was admitted under orthopedic services for T11 burst fracture with severe collapse and kyphosis. Patient is status post open treatment T11 vertebral body fracture with T8-11 decompression and fusion with kyphosis correction along with T11-T12 interbody fusion with kyphoplasty at the T7. Patient follows with Dr. Zafar in the outpatient setting with a past medical history of COPD, osteoarthritis, thyroid, current everyday smoker. Patient denies any illicit drug use or significant alcohol use. Patient is postop day 1 sitting up in the chair falling asleep during conversation reports significant pain. Patient awaiting to work with physical therapy. Plan is to return home on discharge and has support services in the home. 11/11/2024 Patient is seen in follow-up today status post surgical intervention with orthopedics. Patient is currently sleeping in bed although arousable. Breath sounds are congested and patient is requiring oxygen although does not normally wear oxygen outpatient. Patient is a smoker and does have history of COPD does not appear to be exacerbated at this time. Will obtain a chest x-ray and strongly encouraged incentive spirometer use and sitting up in the chair more frequently. Patient work with physical therapy as she reports she will be going home on discharge. Will add DuoNebs 4 times daily and continue with her inhalers. 11/12/2024 Patient is seen in follow-up today continues to have some cough and congestion and was given a dose of Lasix with some improvement, 2D echo is pending and will order BNP. Patient reports no history of heart failure. Patient is continued on 4 L of oxygen currently and does not wear oxygen outpatient. Patient does have history of COPD and is a smoker. Patient also on exam has a large fan directly pointed towards her continuously in the room. Encouraged removing that and also sitting up in the chair more frequently and using incentive spirometer more often. Patient is afebrile and denies any shortness of breath. Patient continues with significant pain and generalized weakness. Awaiting to work with PT/OT therapy again and has an LSO brace ordered Review of systems: Constitutional: No reports of fatigue, fever, or chills Cardiovascular: No reports of chest pain or palpitations Respiratory: No reports of shortness of breath reports occasional cough GI: No reports of nausea, vomiting, or diarrhea : No reports of dysuria or retention Neurovascular: reports of generalized weakness and continued back pain All medications have been reviewed The rest of the 14-point review of systems is negative. PHYSICAL EXAMINATION: GENERAL: The patient is asleep although easily arousable alert and oriented x3, not in any acute distress. Well developed, thin built, appears older than stated age HEENT: Pupils are round and equally reacting to light. EOMI. No scleral icterus. No conjunctival pallor. Normocephalic, atraumatic. No pharyngeal erythema. No thyromegaly. CARDIOVASCULAR: S1 and S2 muffled PULMONARY: Diminished breath sounds bilaterally with some bronchial congestion and some expiratory wheezing noted. No crackles or rhonchi appreciated at this time ABDOMEN: Soft, nontender, nondistended, normoactive bowel sounds. No palpable organomegaly. MUSCULOSKELETAL: No joint swelling or deformity. EXTREMITIES: No cyanosis, clubbing, or pedal edema. NEUROLOGICAL: Gross neurological examination did not reveal any focal deficits. Diffusely weak SKIN: No rashes. Assessment: T11 burst fracture with severe collapse and kyphosis, status post T11 vertebral body fracture with T8-11 decompression and fusion with kyphosis correction at the T7 Acute hypoxic respiratory failure, likely secondary to volume overload. Showing pulmonary vascular congestion History of COPD, not in exacerbation History of osteoarthritis Hypothyroidism Continued ongoing nicotine dependence GI prophylaxis DVT prophylaxis Full code Plan: Patient admitted under orthopedic services status post decompression and fusion with kyphosis correction, patient continues to report significant pain with orthopedics to manage. Patient is lethargic and sleeping most of the day per nursing staff Recommend PT/OT therapy daily as patient will be going home on discharge she reports Medications reviewed and resumed as appropriate including inhalers as patient does have history of COPD. Not in exacerbation at this time. Patient is having some wheezing and upper bronchial congestion appears to be pulmonary congestion. Chest x-ray showing pulmonary vascular congestion. Patient is wearing 4 L of oxygen via nasal cannula and does not wear oxygen normally. Per nursing staff patient is not doing incentive spirometer and has been reinforced multiple times and strongly encouraged at least 10 times every hour while awake. Also encouraged patient to sit up in the chair for all meals and most of the day Encouraged increase activity as tolerated with restrictions per orthopedics Robb catheter has been voiding, no bowel movement as of yet continue as needed bowel regimen Thank you kindly for this consultation. We will continue to follow with orthopedics during hospitalization. The impression and plan of care has been dictated by Tosin Lawrence, Nurse Practitioner as directed. Dr. Lucie MD I have performed a history and examination and MDM of this patient, discussed the same with the dictator, and agree with the dictator's assessment and plan as written ,documented as a scribe. Based on total visit time, I have performed more than 50% of the visit. Objective - Vital Signs Vital signs: Vital Signs Temp 97.9 F 11/12/24 07:01 Pulse 84 11/12/24 08:51 Resp 18 11/12/24 07:01 BP 99/57 11/12/24 07:01 Pulse Ox 96 11/12/24 07:01 FiO2 Intake & Output 11/11/24 11/12/24 11/12/24 18:59 06:59 18:59 Intake Total 920 Output Total 830 Balance 90 Intake: Oral 920 Output: Drainage 30 Medial Back 30 Urine 800 Other: Voiding Method Indwelling Catheter Toilet Bedside Commode # Voids 1 2 - Labs CBC & Chem 7: 11/12/24 10:18 11/12/24 10:18
[2024-11-13] MEDS: FUROSEMIDE 10 MG/ML 4 ML VIAL IV STA (09:38)
[2024-11-13] MEDS: LACTOBACILLUS ACIDOPHILUS/PECT 1 EACH CAPSULE PO SCH (10:44)
--- NOTE | 2024-11-13 11:39 | CA ---
Transthoracic Echo Report Name: Ricardo Alvarenga Age: 68 Gender: F : 1955 Exam Date: 11/12/2024 14:16 Exam Location: [facility] Ht (in): 64 Wt (lb): 143 Ordering Physician: Tosin Lawrence Attending/Referring Phys: Manager Of Broadcast Content Gretta Teixeira RDCS Procedure CPT: Indications: vasc congestion, ? chf Cardiac Hx: Technical Quality: Good Contrast 1: Total Dose (mL): Contrast 2: Total Dose (mL): MEASUREMENTS (Male / Female) Normal Values 2D ECHO LV Diastolic Diameter PLAX 4.8 cm 4.2 - 5.9 / 3.9 - 5.3 cm LV Systolic Diameter PLAX 2.6 cm IVS Diastolic Thickness 1.1 cm 0.6 - 1.0 / 0.6 - 0.9 cm LVPW Diastolic Thickness 1.4 cm 0.6 - 1.0 / 0.6 - 0.9 cm LV Relative Wall Thickness 0.5 RV Internal Dim ED PLAX 2.2 cm LA Systolic Diameter LX 4.8 cm 3.0 - 4.0 / 2.7 - 3.8 cm LV Diastolic Volume MOD BP 65.7 cm??? 67 - 155 / 56 - 104 cm??? LV Systolic Volume MOD BP 20.4 cm??? 22 - 58 / 19 - 49 cm??? LV Ejection Fraction MOD BP 69.0 % >= 55 % LV Diastolic Volume MOD 4C 68.2 cm??? LV Systolic Volume MOD 4C 20.7 cm??? LV Ejection Fraction MOD 4C 69.6 % LV Diastolic Length 4C 6.8 cm LV Systolic Length 4C 5.6 cm LV Diastolic Volume MOD 2C 63.2 cm??? LV Systolic Volume MOD 2C 19.7 cm??? LV Ejection Fraction MOD 2C 68.8 % LV Diastolic Length 2C 6.8 cm LV Systolic Length 2C 5.8 cm LA Volume 41.1 cm??? 18 - 58 / 22 - 52 cm??? LA Volume Index 23.8 cm???/m??? 16 - 28 cm???/m??? M-MODE Aortic Root Diameter MM 3.3 cm LA Systolic Diameter MM 4.1 cm LA Ao Ratio MM 1.2 AV Cusp Separation MM 2.1 cm DOPPLER MV Area PHT 2.8 cm??? Mitral E Point Velocity 86.5 cm/s Mitral A Point Velocity 101.3 cm/s Mitral E to A Ratio 0.9 MV Deceleration Time 268.1 ms TR Peak Velocity 324.3 cm/s TR Peak Gradient 42.1 mmHg Right Atrial Pressure 10.0 mmHg Pulmonary Artery Systolic Pressu 52.1 mmHg Right Ventricular Systolic Press 52.1 mmHg FINDINGS Left Ventricle Left ventricular ejection fraction is estimated at 55-60 %. Mildly increased septal wall thickness. Moderately increased posterior wall thickness. Normal left ventricular systolic function with no obvious regional wall motion abnormalities. Right Ventricle Normal right ventricular size and function. Moderate pulmonary hypertension. Right Atrium Mild right atrial dilatation. Left Atrium Severely increased left atrial diameter. Mitral Valve Structurally normal mitral valve. Mild mitral regurgitation. No mitral stenosis. Aortic Valve Trileaflet aortic valve. No aortic valve stenosis or regurgitation. Tricuspid Valve Structurally normal tricuspid valve. [id number] tricuspid regurgitation. No tricuspid stenosis. Pulmonic Valve Structurally normal pulmonic valve. No pulmonic stenosis. Trace pulmonic regurgitation. Pericardium Minimal pericardial effusion (normal variant). Aorta Normal size aortic root and proximal ascending aorta. CONCLUSIONS LVEF 55% Mild concentric LVH No obvious regional wall motion abnormality Severe LA dilatation No obvious regional wall motion abnormality Previewed by: Dr Jovany Barbosa (Electronically Signed) Final Date: 13 November 2024 11:38
--- NOTE | 2024-11-13 11:42 | P.DS ---
Providers Date of admission: 11/09/24 07:13 Expected date of discharge: 11/13/24 Attending physician: Kali Holbrook DO Consults: 11/09/24 20:04 Consult Physician Routine Consulting Provider: Singh Schulte Reason/Comments: Medical management Do you want consulting provider notified?: Yes Primary care physician: Dennis Zafar Hospital Course: Date of admission: 11/09/2024 Date of discharge: 11/13/2024 Admission diagnosis: 1. T11 BURST COMPRESSION FRACTURE, 80% COMPRESSION ANTERIOR WEDGE DEFORMITY 2. T7 VCF, 50% ANTERIOR WEDGE COMPRESSION 3. 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 SEVERE THORACIC BACK PAIN 5. LE WEAKNESS Discharge diagnosis: Same Attending physician: Dr. Holbrook Surgical procedures: open treatment T11 vertebral body fracture with T8-L2 decompression and fusion with kyphosis correction and T10-T11 and T11-T12 interbody fusion with T7 kyphoplasty Brief history: Patient is a 68-year-old female with a history of T11 burst fracture, T7 vertebral compression fracture; severe kyphotic deformity; severe thoracic back pain and lower extremity weakness. At this point patient has failed conservative treatment measures and has opted to proceed with a elective open treatment T11 vertebral body fracture with T8-L2 decompression and fusion with kyphosis correction and T10-T11 and T11-T12 interbody fusion with T7 kyp hoplasty. Hospital course: Details of patient's surgery can be found in operative report. Patient tolerated the procedure well and was subsequently transported to orthopedic floor. Patient's orthopeidc and medical care was provided daily. Patient had daily laboratory tests performed for evaluation of overall blood counts. Patient had daily physical therapy to include strengthening range of motion as well as education with walker ambulation. Patient was treated with aspirin for their postoperative DVT prophylaxis during their inpatient stay. Patient was noted to have a relatively uneventful postoperative course. Patient reported satisfactory pain control with oral pain medications by postoperative day 4. Patient showed satisfactory progress with physical therapy. Patient moved steadily through the program and had no difficulty meeting the goals by postoperative day 4. Given patient's otherwise satisfactory course and having met physical therapy goals, plan is to discharge patient home on postoperative day 4. Discharge condition/disposition: Patient will be discharged home in stable condition. Discharge medications: Instructions are given on resumption of patient's normal daily medications per primary care recommendation, in addition patient will be prescribed Minong; senna; Duricef; Flexeril. Spine Discharge and Recovery Instructions Date of Surgery: 11/09/2024 Diagnosis: 1. T11 BURST COMPRESSION FRACTURE, 80% COMPRESSION ANTERIOR WEDGE DEFORMITY 2. T7 VCF, 50% ANTERIOR WEDGE COMPRESSION 3. 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 SEVERE THORACIC BACK PAIN 5. LE WEAKNESS Procedure: open treatment T11 vertebral body fracture with T8-L2 decompression and fusion with kyphosis correction and T10-T11 and T11-T12 interbody fusion with T7 kyph oplasty Medications: See medication list All medication refills should be obtained through your primary care doctor or your clinic spine surgeon. Please discuss prescription refills at your follow up appointment. Do not call the hospital for medication refills. Dressing: Leave your dressing in place for a total of 5 days post operatively. Then you may remove your dressing and leave open to air. Keep the area clean and if not able to keep area clean, then cover with sterile gauze and tape. Showering: You may shower 3 days after your procedure allowing soap and water to run over incision. Do not scrub. Do not soak. Blot dry. Follow up: Please confirm a follow up appointment with your surgeon 3 weeks post operatively. Please make an appointment to follow up with your PCP in 1-2 weeks after surgery for evaluation '3 phase, 3-week plan' POST OP WEEKS 1-3 1. Lifting/carrying/pushing/pulling limited to less than 5 pounds. 2. Do not sit for longer than 15 minutes at one time. Get up and walk around. Prolonged sitting is NOT advised. If you lay down, see if you can tolerate laying down on you front (belly side) 3. Walk for periods of 15 minutes = 1 mile but no longer; do it multiple times times each day. 4. Ice your low back after activity. POST OP WEEKS 3-6 1. Lifting limited to less than 20 pounds. 2. Do not sit for longer than 30 minutes at a time. Frequently change positions. Use a sit-to stand workstation or take frequent breaks from sitting if you have returned to work. 3. Walk for 30 minutes each day. If possible, do these three or more times a day POST OP WEEKS 6+ At your 6-week appointment we will give you a physical therapy referral to focus on a core stabilization and strengthening program. You should also work on leg & buttock strengthening, hamstring & quadriceps stretching, and continue a low impact aerobic activity program such as swimming, walking, or riding a stationary bicycle. During the initial 6 weeks after your surgery, you are at the highest risk of re-injuring your spine. You should generally avoid BLT's (bending, lifting and twisting combination motions) and follow the above guidelines to reduce the chance of reinjury. You can anticipate post op appointments in our office at approximately 3 weeks and 6 weeks after your surgery. INCISION CARE: If your incision is not draining you do NOT need to cover it with a dressing. Keep your incision clean, dry and intact. In most cases, we apply skin glue, timothy or sutures to the incision at the time of surgery. This will be like a crust or have the appearance of a scab and will fall off in time on its own. The stitches or timothy need to be removed at 3 weeks post op appointment. You may begin to shower 3 days after surgery (this allows the glue to rivas well). However, please avoid scrubbing the incision site or peeling off any of the skin glue. This will ensure optimal healing of your incision. Also, during this time avoid soaking the incision area in water - this includes swimming pools, hot tubs or baths. No ointments, lotions or oils on the incision until your surgeon allows. Leave timothy, sutures or glue in place. Neurological dysfunction that comes on suddenly can also be a sign of a stroke. Below some common symptoms of a stroke are listed: B - balance difficulty such as sudden onset walking or leaning to one side - NEW E - eye problem such as sudden double vision or trouble seeing on one side - NEW F - Facial weakness or numbness on one side - NEW A - Arm or leg weakness or numbness on one side - NEW S - Slurred speech or difficulty with word finding - NEW T - Time is BRAIN! Call 911 as soon as you recognize these symptoms Diet: Consume a regular diet rich in vegetables and lean protein such as chicken or fish. You should consume in a ratio of approximately 20% fats|40% carbohydrates|40%protein. Vegetables, sweet potatoes, brown rice or quinoa are examples of good carbohydrates. Chips, white bread, cookies and sweets/sugar are examples of bad carbohydrates. Limit your bad carbs, go wild with good carbs. 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 (1) Get Active. Physical activity can help people lose weight, control high blood pressure and cholesterol, feel emotionally better, and sleep better. (2) Control Cholesterol. Avoid a diet high in saturated fat, trans fat, & cholesterol. Limit whole milk & cream, ice cream, butter, egg yolks, processed meats (like sausage and hot dogs), and fatty meats. Choose healthy foods that are low in saturated fat, trans fat and cholesterol which include: Fruits and vegetables, fiber rich grain products (like whole grain pasta and brown rice), lean meat such as chicken, fish, nuts, seeds, and legumes. (3) Eat Better. Eat small portions. Shop at the grocery with a list and do not stray from it. Tips for a healthy diet include: Limit sodium intake to less than 1500mg daily, avoid prepackaged, processed, and fast foods, choose a diet rich in fruits, vegetables, and whole grain, high fiber foods, and limit saturated & cholesterol in your diet. (4) Manage Blood Pressure. If you have high blood pressure, you should have a cuff at home so that you can check your blood pressure regularly. Be sure you have a good cuff. An arm one is generally better than a wrist one. Bring the cuff to a doctor's appointment to validate that the measurements that your cuff are taking are accurate. Take your blood pressure twice daily when you are sitting down and relaxing. Record the numbers in a log and bring this log with you to your doctors' appointments. (5) Lose Weight if your BMI is above 25. A healthy BMI is between 19-25. To calculate Your BMI, you may use a Standard BMI Calculator on the NIH BMI website: <www.nhlbi.nih.gov/guidelines/obesity/BMI/bmicalc.htm>. Weigh oneself daily. If you are overweight, set a goal to lose weight. A pound a week loss if needed is a good target. (6) Reduce Blood Sugar. Limit foods and liquids with "added sugars." (Added sugars include sucrose, fructose, glucose, maltose, dextrose, high fructose corn syrup, corn syrup, concentrated fruit juice and honey). (7) Stop Smoking. If you smoke, quitting smoking is one of the best things that you can do for your health. Smoking increases your risk of heart attack, stroke, and peripheral vascular disease, which is a build-up of plaque in your arteries. Please discard all the cigarettes and lighters in your house. Have a plan for what you will do when you have the urge to smoke. Direct and second- hand smoke shortens your life as well as the lives of your family, friends and others around you. For your health and the health of those around you, please consider quitting! Proper Bending Body Mechanics: Maintain a wide stance with one foot slightly in front of the other. Keep your back straight. Bend utilizing the strength in your hips and knees. Do not bend at the waist. Maintain the lifted object at your waist-level close to your body. Avoid lifting weight that causes immediately pain or pain anywhere in the body afterwards. Smoking/Nicotine If there was ever one thing that you could do to increase your overall health, d ecrease your risk of cardiovascular problems by about 39% the second you make the choice, it is to STOP SMOKING. Your body's most instant gratification is the second you stop smoking. We have all heard the studies, read the articles but it is true, smoking is extremely bad for your overall health, and moreover it is detrimental to your bone health. Nicotine, IN ANY FORM, kills bone cells, prevents your body from healing fractures, and significantly prolongs healing after surgery. In spine surgery specifically, it increases your risk of not healing your bones to create a fusion and increases your risk of having a revision surgery due to this up to 60%. I know it is hard. I know it feels impossible. But there are ways. Take control of your life. We are here to help you through it. And when you are ready, ask us and we can direct you to help if you desire. Use the START Plan to Quit Smoking (please visit the Helpguide.org website listed below for more information): S = Set a quit date. Choose a date within the next 2 weeks, so you have enough time to prepare without losing your motivation to quit. If you mainly smoke at work, quit on the weekend, so you have a few days to adjust to the change. T = Tell family, friends, and co-workers that you plan to quit. Let your friends and family in on your plan to quit smoking and tell them you need their support and encouragement to stop. Look for a quit erich who wants to stop smoking as well. You can help each other get through the rough times. A = Anticipate and plan for the challenges you'll face while quitting. Most people who begin smoking again do so within the first 3 months. You can help yourself make it through by preparing ahead for common challenges, such as nicotine withdrawal and cigarette cravings. R = Remove cigarettes and other tobacco products from your home, car, and work. Throw away all your cigarettes (no emergency pack!), lighters, ashtrays, and matches. Wash your clothes and freshen up anything that smells like smoke. Shampoo your car, clean your drapes and carpet, and steam your furniture. T = Talk to your doctor about getting help to quit. Your doctor can prescribe medication to help with withdrawal and suggest other alternatives. If you can't see a doctor, you can get many products over the counter at your local pharmacy or grocery store, including the nicotine patch, nicotine lozenges, and nicotine gum. Resources for Quitting Smoking: <https://www.[place].gov/documents/[facility]/Quit_Tobacco_Resources_for_patients_313 480_7.pdf> Supplementation: Take recommended dosages of Vitamin D and Calcium to help fortify your bones and help them to heal. See your health maintenance packet for dosages and recommended levels. DVT/VTE prophylaxis: You will be given compression stockings from the hospital. Wear these daily for the first two weeks after surgery. You may take them off at night. You may be prescribed a medication to help thin your blood. Take this as directed. If you are not prescribed this medication, early and frequent ambulation has been shown to be the best prophylaxis to deep vein thrombosis and sequelae related to this event. Assessment: 1. T11 BURST COMPRESSION FRACTURE, 80% COMPRESSION ANTERIOR WEDGE DEFORMITY 2. T7 VCF, 50% ANTERIOR WEDGE COMPRESSION 3. 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 SEVERE THORACIC BACK PAIN 5. LE WEAKNESS Procedures: open treatment T11 vertebral body fracture with T8-L2 decompression and fusion with kyphosis correction and T10-T11 and T11-T12 interbody fusion with T7 kyphoplasty Plan - Discharge Summary Discharge Rx Participant: Yes New Discharge Prescriptions: New HYDROcodone/APAP 10-325MG [Minong 10-325] 1 tab PO Q6HR PRN #28 tab PRN Reason: Pain cefaDROXiL [Duricef] 500 mg PO Q12HR 5 Days #10 cap Sennosides/Docusate Sodium [Senna Plus 8.6-50 mg Softgel] 1 each PO DAILY #20 capsule Ondansetron [Zofran] 4 mg PO Q8HR PRN #12 tab PRN Reason: Nausea No Action Albuterol Sulfate [Proair Hfa] 2 puff INHALATION RT-QID PRN PRN Reason: Shortness Of Breath Loratadine-Pseudoeph 5-120 mg [Claritin-D 12 Hour] 1 tab PO Q12H PRN PRN Reason: Allergy Symptoms Levothyroxine Sodium [Synthroid] 125 mcg PO DAILY Fluticasone/Umeclidin/Vilanter [Trelegy Ellipta 100-62.5-25] 1 puff INHALATION RT-DAILY Cholecalciferol [Vitamin D3 (25 Mcg = 1000 Iu)] 100 mcg PO DAILY #100 tablet Nicotine 21Mg/24Hr Patch [Habitrol] 1 patch TRANSDERM DAILY #14 patch Ascorbic Acid [Vitamin C] 500 mg PO BID #60 tab HYDROcodone/APAP 10-325MG [Minong 10-325] 1 tab PO BID Discharge Medication List Albuterol Sulfate [Proair Hfa] 2 puff INHALATION RT-QID PRN 10/11/21 [History] Fluticasone/Umeclidin/Vilanter [Trelegy Ellipta 100-62.5-25] 1 puff INHALATION RT-DAILY 10/11/21 [History] Levothyroxine Sodium [Synthroid] 125 mcg PO DAILY 10/11/21 [History] Loratadine-Pseudoeph 5-120 mg [Claritin-D 12 Hour] 1 tab PO Q12H PRN 10/11/21 [History] Ascorbic Acid [Vitamin C] 500 mg PO BID #60 tab 10/14/21 [Rx] Cholecalciferol [Vitamin D3 (25 Mcg = 1000 Iu)] 100 mcg PO DAILY #100 tablet 10/14/21 [Rx] Nicotine 21Mg/24Hr Patch [Habitrol] 1 patch TRANSDERM DAILY #14 patch 10/14/21 [Rx] HYDROcodone/APAP 10-325MG [Minong 10-325] 1 tab PO BID 11/02/24 [History] HYDROcodone/APAP 10-325MG [Minong 10-325] 1 tab PO Q6HR PRN #28 tab 11/13/24 [Rx] Ondansetron [Zofran] 4 mg PO Q8HR PRN #12 tab 11/13/24 [Rx] Sennosides/Docusate Sodium [Senna Plus 8.6-50 mg Softgel] 1 each PO DAILY #20 capsule 11/13/24 [Rx] cefaDROXiL [Duricef] 500 mg PO Q12HR 5 Days #10 cap 11/13/24 [Rx] Follow up Appointment(s)/Referral(s): Dennis Zafar DO [Primary Care Provider] - 1 Week [facility], [NON-STAFF] - As Needed ([facility] will call you to schedule your in home nursing and physical therapy visits. ) Kali Holbrook DO [Doctor of Osteopathic Medicine] - 2 Weeks Activity/Diet/Wound Care/Special Instructions: Spine Discharge and Recovery Instructions Date of Surgery: 11/09/2024 Diagnosis: T11 vertebral body fracture, thoracic kyphosis with stenosis Procedure: Open treatment T11 vertebral body fracture with T8-L2 decompression and fusion with kyphosis correction and T10-T11 and T11-T12 interbody fusion with T7 kyphoplasty Medications: See medication list All medication refills should be obtained through your primary care doctor or your clinic spine surgeon. Please discuss prescription refills at your follow up appointment. Do not call the hospital for medication refills. Activity: Encourage ambulation with assist of walker, Up and about 6-8x daily PT/OT daily work on balance, strength and mobility Up in chair with all meals Shower daily Brace: Use brace when up and about, do not wear in bed or shower Dressing: Leave your dressing in place for a total of 3 days post operatively. Then you may remove your dressing and leave open to air. Keep the area clean and if not able to keep area clean, then cover with sterile gauze and tape. Showering: You may shower 3 days after your procedure allowing soap and water to run over incision. Do not scrub. Do not soak. Blot dry. Follow up: Please confirm a follow up appointment with your surgeon 2 weeks post operatively. Please make an appointment to follow up with your PCP in 1-2 weeks after surgery for evaluation '3 phase, 3-week plan' POST OP WEEKS 1-3 1. Lifting/carrying/pushing/pulling limited to less than 5 pounds. 2. Do not sit for longer than 15 minutes at one time. Get up and walk around. Prolonged sitting is NOT advised. If you lay down, see if you can tolerate laying down on you front (belly side) 3. Walk for periods of 15 minutes = 1 mile but no longer; do it multiple times times each day. 4. Ice your low back after activity. POST OP WEEKS 3-6 1. Lifting limited to less than 20 pounds. 2. Do not sit for longer than 30 minutes at a time. Frequently change positions. Use a sit-to stand workstation or take frequent breaks from sitting if you have returned to work. 3. Walk for 30 minutes each day. If possible, do these three or more times a day POST OP WEEKS 6+ At your 6-week appointment we will give you a physical therapy referral to focus on a core stabilization and strengthening program. You should also work on leg & buttock strengthening, hamstring & quadriceps stretching, and continue a low impact aerobic activity program such as swimming, walking, or riding a stationary bicycle. During the initial 6 weeks after your surgery, you are at the highest risk of re-injuring your spine. You should generally avoid BLT's (bending, lifting and twisting combination motions) and follow the above guidelines to reduce the chance of reinjury. You can anticipate post op appointments in our office at approximately 3 weeks and 6 weeks after your surgery. INCISION CARE: If your incision is not draining you do NOT need to cover it with a dressing. Keep your incision clean, dry and intact. In most cases, we apply skin glue, timothy or sutures to the incision at the time of surgery. This will be like a crust or have the appearance of a scab and will fall off in time on its own. The stitches or timothy need to be removed at 3 weeks post op appointment. You may begin to shower 3 days after surgery (this allows the glue to rivas well). However, please avoid scrubbing the incision site or peeling off any of the skin glue. This will ensure optimal healing of your incision. Also, during this time avoid soaking the incision area in water - this includes swimming pools, hot tubs or baths. No ointments, lotions or oils on the incision until your surgeon allows. Leave timothy, sutures or glue in place. Neurological dysfunction that comes on suddenly can also be a sign of a stroke. Below some common symptoms of a stroke are listed: B - balance difficulty such as sudden onset walking or leaning to one side - NEW E - eye problem such as sudden double vision or trouble seeing on one side - NEW F - Facial weakness or numbness on one side - NEW A - Arm or leg weakness or numbness on one side - NEW S - Slurred speech or difficulty with word finding - NEW T - Time is BRAIN! Call 911 as soon as you recognize these symptoms Diet: Consume a regular diet rich in vegetables and lean protein such as chicken or fish. You should consume in a ratio of approximately 20% fats|40% carbohydrates|40%protein. Vegetables, sweet potatoes, brown rice or quinoa are examples of good carbohydrates. Chips, white bread, cookies and sweets/sugar are examples of bad carbohydrates. Limit your bad carbs, go wild with good carbs. 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 (1) Get Active. Physical activity can help people lose weight, control high blood pressure and cholesterol, feel emotionally better, and sleep better. (2) Control Cholesterol. Avoid a diet high in saturated fat, trans fat, & cholesterol. Limit whole milk & cream, ice cream, butter, egg yolks, processed meats (like sausage and hot dogs), and fatty meats. Choose healthy foods that are low in saturated fat, trans fat and cholesterol which include: Fruits and vegetables, fiber rich grain products (like whole grain pasta and brown rice), lean meat such as chicken, fish, nuts, seeds, and legumes. (3) Eat Better. Eat small portions. Shop at the grocery with a list and do not stray from it. Tips for a healthy diet include: Limit sodium intake to less than 1500mg daily, avoid prepackaged, processed, and fast foods, choose a diet rich in fruits, vegetables, and whole grain, high fiber foods, and limit saturated & cholesterol in your diet. (4) Manage Blood Pressure. If you have high blood pressure, you should have a cuff at home so that you can check your blood pressure regularly. Be sure you have a good cuff. An arm one is generally better than a wrist one. Bring the cuff to a doctor's appointment to validate that the measurements that your cuff are taking are accurate. Take your blood pressure twice daily when you are sitting down and relaxing. Record the numbers in a log and bring this log with you to your doctors' appointments. (5) Lose Weight if your BMI is above 25. A healthy BMI is between 19-25. To calculate Your BMI, you may use a Standard BMI Calculator on the NIH BMI website: <www.nhlbi.nih.gov/guidelines/obesity/BMI/bmicalc.htm>. Weigh oneself daily. If you are overweight, set a goal to lose weight. A pound a week loss if needed is a good target. (6) Reduce Blood Sugar. Limit foods and liquids with "added sugars." (Added sugars include sucrose, fructose, glucose, maltose, dextrose, high fructose corn syrup, corn syrup, concentrated fruit juice and honey). (7) Stop Smoking. If you smoke, quitting smoking is one of the best things that you can do for your health. Smoking increases your risk of heart attack, stroke, and peripheral vascular disease, which is a build-up of plaque in your arteries. Please discard all the cigarettes and lighters in your house. Have a plan for what you will do when you have the urge to smoke. Direct and second- hand smoke shortens your life as well as the lives of your family, friends and others around you. For your health and the health of those around you, please consider quitting! Proper Bending Body Mechanics: Maintain a wide stance with one foot slightly in front of the other. Keep your back straight. Bend utilizing the strength in your hips and knees. Do not bend at the waist. Maintain the lifted object at your waist-level close to your body. Avoid lifting weight that causes immediately pain or pain anywhere in the body afterwards. Smoking/Nicotine If there was ever one thing that you could do to increase your overall health, decrease your risk of cardiovascular problems by about 39% the second you make the choice, it is to STOP SMOKING. Your body's most instant gratification is the second you stop smoking. We have all heard the studies, read the articles but it is true, smoking is extremely bad for your overall health, and moreover it is detrimental to your bone health. Nicotine, IN ANY FORM, kills bone cells, prevents your body from healing fractures, and significantly prolongs healing after surgery. In spine surgery specifically, it increases your risk of not healing your bones to create a fusion and increases your risk of having a revision surgery due to this up to 60%. I know it is hard. I know it feels impossible. But there are ways. Take control of your life. We are here to help you through it. And when you are ready, ask us and we can direct you to help if you desire. Use the START Plan to Quit Smoking (please visit the Helpguide.org website listed below for more information): S = Set a quit date. Choose a date within the next 2 weeks, so you have enough time to prepare without losing your motivation to quit. If you mainly smoke at work, quit on the weekend, so you have a few days to adjust to the change. T = Tell family, friends, and co-workers that you plan to quit. Let your friends and family in on your plan to quit smoking and tell them you need their support and encouragement to stop. Look for a quit erich who wants to stop smoking as well. You can help each other get through the rough times. A = Anticipate and plan for the challenges you'll face while quitting. Most people who begin smoking again do so within the first 3 months. You can help yourself make it through by preparing ahead for common challenges, such as nicotine withdrawal and cigarette cravings. R = Remove cigarettes and other tobacco products from your home, car, and work. Throw away all your cigarettes (no emergency pack!), lighters, ashtrays, and matches. Wash your clothes and freshen up anything that smells like smoke. Shampoo your car, clean your drapes and carpet, and steam your furniture. T = Talk to your doctor about getting help to quit. Your doctor can prescribe medication to help with withdrawal and suggest other alternatives. If you can't see a doctor, you can get many products over the counter at your local pharmacy or grocery store, including the nicotine patch, nicotine lozenges, and nicotine gum. Resources for Quitting Smoking: <https://www.[place].gov/documents/[facility]/Quit_Tobacco_Resources_for_patients_313 480_7.pdf> Supplementation: Take recommended dosages of Vitamin D and Calcium to help fortify your bones and help them to heal. See your health maintenance packet for dosages and recommended levels. DVT/VTE prophylaxis: You will be given compression stockings from the hospital. Wear these daily for the first two weeks after surgery. You may take them off at night. You may be prescribed a medication to help thin your blood. Take this as directed. If you are not prescribed this medication, early and frequent ambulation has been shown to be the best prophylaxis to deep vein thrombosis and sequelae related to this event. Discharge Disposition: HOME WITH HOME HEALTH SERVICES
--- NOTE | 2024-11-13 12:22 | P.PN ---
Subjective Progress Note Date: 11/13/24 Principal diagnosis: 1. T11 BURST COMPRESSION FRACTURE, 80% COMPRESSION ANTERIOR WEDGE DEFORMITY 2. T7 VCF, 50% ANTERIOR WEDGE COMPRESSION 3. 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 SEVERE THORACIC BACK PAIN 5. LE WEAKNESS Patient was seen at bedside this morning lying in the semi-, position on 4 S. Dressings present over lumbar spine. Patient says she has been getting out of bed okay and did do better with therapy this morning. She says she is hoping to go home later today, however, patient is aware that she has been on oxygen since surgery and may need to stay an additional night. Patient says she has been urinating since surgery without issue. Patient says she has been feeling fairly nauseated since surgery was performed however, patient has not been having much to eat either since surgery. Patient says she does have a brace and a walker at home and she does have family to help her out when she does go home. Patient denies any other orthopedic complaints at this time. Objective - Vital Signs Vital signs: Vital Signs Temp 98 F 11/13/24 07:09 Pulse 86 11/13/24 07:09 Resp 17 11/13/24 07:09 BP 134/71 11/13/24 07:09 Pulse Ox 90 L 11/13/24 07:09 FiO2 Intake & Output 11/12/24 11/13/24 11/13/24 18:59 06:59 18:59 Intake Total 100 Output Total 100 Balance 0 Intake: Oral 100 Output: Urine 100 Other: Voiding Method Toilet Bedside Commode Bedside Commode # Voids 2 3 # Bowel Movements 0 - Exam dressing change at bedside this morning. [place] well aligned over thoacolumbar spine. Negative for any drainage. Sensation is equal, symmetric, bilateral intact throughout the upper and lower extremities on exam. Patient does have good range of motion throughout bilateral upper extremities on exam. Patient does have some limited range of motion of the bilateral hips in flexion extension secondary referred stiffness and pain to the mid and low back. 4/5 in all major motor groups in bilateral lower extremities. Radial pulse intact, 2+ bilaterally. Cap refill under 3 seconds in digits of upper extremities. DP pulses palpable bilaterally. Negative Homans bilaterally. Negative clonus bilaterally. Negative Salbador bilaterally. - Labs CBC & Chem 7: 11/12/24 10:18 11/12/24 10:18 Labs: Abnormal Lab Results - Last 24 Hours (Table) 11/12/24 11/12/24 Range/Units 10:18 10:18 RBC 2.94 L (3.80-5.40) m/uL Hgb 9.3 L (11.4-16.0) gm/dL Hct 28.5 L (34.0-46.0) % Lymphocytes # 0.5 L (1.0-4.8) k/uL Carbon Dioxide 39 H (22-30) mmol/L Glucose 105 H (74-99) mg/dL Total Protein 4.7 L (6.3-8.2) g/dL Albumin 2.6 L (3.5-5.0) g/dL Assessment and Plan Assessment: 1. T11 BURST COMPRESSION FRACTURE, 80% COMPRESSION ANTERIOR WEDGE DEFORMITY;T7 VCF, 50% ANTERIOR WEDGE COMPRESSION; SEVERE KYPHOTIC DEFORMITY 50 DEG DUE TO FRACTURE; SEVERE THORACIC BACK PAIN; LE WEAKNESS Postop day #4 status post: open treatment T11 vertebral body fracture with T8-L2 decompression and fusion with kyphosis correction and T10-T11 and T11-T12 interbody fusion with T7 kyphoplasty. Plan: 1. T11 BURST COMPRESSION FRACTURE, 80% COMPRESSION ANTERIOR WEDGE DEFORMITY;T7 VCF, 50% ANTERIOR WEDGE COMPRESSION; SEVERE KYPHOTIC DEFORMITY 50 DEG DUE TO FRACTURE; SEVERE THORACIC BACK PAIN; LE WEAKNESS -surgery performed 11/09/2024 open treatment T11 vertebral body fracture with T8-L2 decompression and fusion with kyphosis correction and T10-T11 and T11-T12 interbody fusion with T7 kyphoplasty. Patient orthopedically stable at bedside this morning. Dressing was changed at bedside. [place] well aligned and intact. Negative for any drainage. Patient has been cleared by PT/OT for discharge home. I did discuss patient's treatment plan with medicine. At this time medicine would like to keep patient in the hospital due to medical comorbidities. Medicine t aking over admission for patient. At this time orthopedics is signing off. Please do not hesitate to contact us for any further questions. Follow-up with Dr. Holbrook in office in 2 weeks. 2. Appreciate medical management 3. Pain management -[place]; Flexeril; Toradol 4. DVT prophylaxis -aspirin 5. GI prophylaxis -Dulcolax; Tums; senna 6. PT/OT -weightbearing as tolerated with walker and brace 7. Encourage incentive spirometer use 8. Discharge planning -stable from an orthopedic standpoint for discharge. discharge per medicine Time with Patient: Less than 30
[2024-11-13] MEDS ORDERED: LACTULOSE 20 GM/30 ML CUP PO PRN (12:36)
[2024-11-13] MEDS: NA PHOS,M-B/NA PHOS,DI-BA 133 ML ENEMA RECTAL ONE (13:30)
[2024-11-13] MEDS: LACTULOSE 20 GM/30 ML CUP PO SCH (14:47)
[2024-11-13 19:35] LABS: Basophils % (A) 0 %; Eosinophils # (A) 0.1 k/uL (0-0.7); Eosinophils % (A) 1 %; HCT 33.2 % (34.0-46.0); HGB 10.9 gm/dL (11.4-16.0); Lymphocytes # (A) 0.3 k/uL (1.0-4.8); Lymphocytes % (A) 3 %; MCH 31.4 pg (25.0-35.0); MCV 95.2 fL (80.0-100.0); Mean Platelet Volume 8.1; Monocytes # (A) 0.5 k/uL (0-1.0); Monocytes % (A) 6 %; Neutrophils # (A) 7.8 k/uL (1.3-7.7); Neutrophils % (A) 89 %; Platelet Count 215 k/uL (150-450); RBC 3.49 m/uL (3.80-5.40); RDW 12.8 % (11.5-15.5); WBC 8.8 k/uL (3.8-10.6)
[2024-11-13 19:48] LABS: ALT 11 U/L (4-34); AST 25 U/L (14-36); African American GFR (CKD) >90 (>60 ml/min/1.73 sqM); Albumin 3.2 g/dL (3.5-5.0); Albumin/Globulin Ratio 1.2; Alkaline Phosphatase 99 U/L (38-126); Amylase 34 U/L (30-110); Anion Gap 6 mmol/L; Blood Urea Nitrogen 17 mg/dL (7-17); Calcium 9.4 mg/dL (8.4-10.2); Carbon Dioxide 37 mmol/L (22-30); Chloride 93 mmol/L (98-107); Globulin 2.7 g/dL; Glucose 132 mg/dL (74-99); Lipase <10 U/L (23-300); Non-African American GFR(CKD) >90 (>60 ml/min/1.73 sqM); Potassium 3.8 mmol/L (3.5-5.1); Sodium 136 mmol/L (137-145); Total Bilirubin 0.6 mg/dL (0.2-1.3); Total Protein 5.9 g/dL (6.3-8.2)
[2024-11-13] MEDS: IOPAMIDOL CONTRAST (ORAL USE) VIAL PO PRN (20:14)
--- NOTE | 2024-11-13 23:26 | CT ---
EXAM: CT Chest Without Intravenous Contrast CLINICAL HISTORY: ITS.REASON CT Reason: abdominal pain, shortness of breath, hypoxia TECHNIQUE: Axial computed tomography images of the chest without intravenous contrast. CTDI is 7.1 mGy and DLP is 523.5 mGy-cm. This CT exam was performed using one or more of the following dose reduction techniques: automated exposure control, adjustment of the mA and/or kV according to patient size, and/or use of iterative reconstruction technique. COMPARISON: Chest x-ray of 11/12/2024. FINDINGS: Lungs: There is extensive consolidative change at the right lower lobe with associated bronchiectasis presumed on the basis of pneumonia. COPD. A 0.7 cm noncalcified nodule is noted posteriorly at the right upper lobe seen on series 207 image 15 which should be followed based on the Fleischner Society guidelines. Airway is normal. Presumed scarring and subsegmental atelectasis posteriorly at the left lung base. Pleural space: Small to moderate right pleural effusion is noted. No pneumothorax. Heart: Cardiomegaly. No significant pericardial effusion. No significant coronary artery calcifications. Bones/joints: Postsurgical changes of the lower thoracic spine. Orthopedic hardware is noted in place and is intact with associated artifact. Multilevel laminectomy defects are noted. Visualized ribs are unremarkable. No acute fracture. No dislocation. Soft tissues: Bilateral breast prostheses are noted in place. Vasculature: Atherosclerotic disease of the thoracic aorta. No thoracic aortic aneurysm. Lymph nodes: Unremarkable. No enlarged lymph nodes. Other findings: Hypoaeration. IMPRESSION: 1. Noncalcified nodule posteriorly at the right upper lobe. PET imaging is advised to follow-up for further assessment for characterization. This recommendation is based on the Fleischner Society guidelines. 2. Right pleural effusion. 3. Extensive consolidative change at the right lower lobe presumed and basilar pneumonia. Other etiologies cannot be entirely excluded. At the very least, follow-up imaging in 4-6 weeks is advised to document resolution. 4. Atherosclerotic disease and ASCVD. EXAM: CT Abdomen and Pelvis Without Intravenous Contrast CLINICAL HISTORY: ITS.REASON CT Reason: abdominal pain, shortness of breath, hypoxia TECHNIQUE: Axial computed tomography images of the abdomen and pelvis without intravenous contrast. CTDI is 7.1 mGy and DLP is 523.5 mGy-cm. This CT exam was performed using one or more of the following dose reduction techniques: automated exposure control, adjustment of the mA and/or kV according to patient size, and/or use of iterative reconstruction technique. COMPARISON: No previous studies. FINDINGS: Lung bases: Unremarkable. No mass. No consolidation. ABDOMEN: Liver: Fatty infiltration of the liver. A 0.8 cm simple cyst at the anterior segment of the right lobe of liver is noted. Gallbladder and bile ducts: Unremarkable. No ductal dilation. No gallstones. Pancreas: See below. Spleen: Spleen is normal in contour. Adrenals: The adrenal glands, the head, body, tail of the pancreas are unremarkable. Kidneys and ureters: Limited evaluation of the kidneys due to artifact arising from orthopedic hardware at the Lumbar spine. No renal calculus or hydronephrosis. Stomach and bowel: Moderate to large quantity of stool and fluid within the colon. Consider constipation/diarrhea. Moderate quantity of ingested material in the stomach. No mucosal thickening. PELVIS: Appendix: Appendix is seen on coronal image 48 and is unremarkable. Bladder: Unremarkable. No stones. Reproductive: The patient is status post hysterectomy. ABDOMEN and PELVIS: Intraperitoneal space: Unremarkable. No free air. No significant fluid collection. Bones/joints: Extensive post surgical changes lumbar spine with associated artifact arising for orthopedic hardware. No spondylolysis. Soft tissues: Ischiorectal fat is clean. Vasculature: Atherosclerotic disease of the abdominal aorta without change in caliber. No abdominal aortic aneurysm. Lymph nodes: Unremarkable. No retroperitoneal lymphadenopathy. IMPRESSION: 1. Large quantity of stool and fluid within the colon. Consider combination of constipation/diarrhea. 2. Appendix is unremarkable. 3. Probable simple hepatic cyst. 4. No gallstones. 5. No renal calculus or hydronephrosis.
--- NOTE | 2024-11-14 07:03 | P.PN ---
Subjective Progress Note Date: 11/13/24 - Reason for Consult Consult date: 11/10/24 Medical management status post decompression and fusion - History of Present Illness This is a 68-year-old female who was admitted under orthopedic services for T11 burst fracture with severe collapse and kyphosis. Patient is status post open treatment T11 vertebral body fracture with T8-11 decompression and fusion with kyphosis correction along with T11-T12 interbody fusion with kyphoplasty at the T7. Patient follows with Dr. Zafar in the outpatient setting with a past medical history of COPD, osteoarthritis, thyroid, current everyday smoker. Patient denies any illicit drug use or significant alcohol use. Patient is postop day 1 sitting up in the chair falling asleep during conversation reports significant pain. Patient awaiting to work with physical therapy. Plan is to return home on discharge and has support services in the home. 11/11/2024 Patient is seen in follow-up today status post surgical intervention with orthopedics. Patient is currently sleeping in bed although arousable. Breath sounds are congested and patient is requiring oxygen although does not normally wear oxygen outpatient. Patient is a smoker and does have history of COPD does not appear to be exacerbated at this time. Will obtain a chest x-ray and strongly encouraged incentive spirometer use and sitting up in the chair more frequently. Patient work with physical therapy as she reports she will be going home on discharge. Will add DuoNebs 4 times daily and continue with her inhalers. 11/12/2024 Patient is seen in follow-up today continues to have some cough and congestion and was given a dose of Lasix with some improvement, 2D echo is pending and will order BNP. Patient reports no history of heart failure. Patient is continued on 4 L of oxygen currently and does not wear oxygen outpatient. Patient does have history of COPD and is a smoker. Patient also on exam has a large fan directly pointed towards her continuously in the room. Encouraged removing that and also sitting up in the chair more frequently and using incentive spirometer more often. Patient is afebrile and denies any shortness of breath. Patient continues with significant pain and generalized weakness. Awaiting to work with PT/OT therapy again and has an LSO brace ordered 11/13/2024 Patient is seen in follow-up today has been sitting up in the chair although reports to feeling extremely nauseated and uncomfortable when sitting up and has made her way back to the bed. Patient continues with TLSO brace while out of bed and currently has the brace on in bed. Patient has been instructed and encouraged to continue with incentive spirometer more frequently and at least 10 times every hour while awake. Patient needs encouragement as she has not been doing so and is extremely weak when doing it. Discussed with nursing staff about reeducating proper use of incentive spirometer. Family at the bedside and this was encouraged as well. Patient continues on 4 to 5 L via nasal cannula with concerns of some vascular congestion and has been given a dose of Lasix. Patient appears euvolemic on exam and also is not eating much as patient is having significant abdominal pain. Patient passing some gas but has not had a bowel movement. Patient does have scheduled bowel regimen as well as as needed and has been refusing some. Discussed with patient and family at the bedside about an enema and she is agreeable. Lactulose to continue until having regular bowel movements. 2D echo was taken and patient is reporting some overall discomfort will consult cardiology and appreciate input and recommendations. Patient is afebrile at this time. Orthopedics has transferred care over to medicine as they were planning on discharging her if cleared medically. Review of systems: Constitutional: reports of fatigue, no fever, or chills Cardiovascular: reports of occasional chest pain, no palpitations Respiratory: reports of shortness of breath reports, occasional weak cough GI: reports of nausea, no vomiting, no bowel movement as of yet : No reports of dysuria or retention Neurovascular: reports of generalized weakness and continued back pain The rest of the 14-point review of systems is negative. PHYSICAL EXAMINATION: GENERAL: The patient is asleep although easily arousable alert and oriented x3. Well developed, thin built, appears older than stated age, ill-appearing HEENT: Pupils are round and equally reacting to light. EOMI. No scleral icterus. No conjunctival pallor. Normocephalic, atraumatic. No pharyngeal erythema. No thyromegaly. CARDIOVASCULAR: S1 and S2 muffled PULMONARY: Diminished breath sounds bilaterally with some bronchial congestion and some expiratory wheezing noted. Faint crackles noted in the bases ABDOMEN: Soft, mildly tender on palpation of lower quadrants, nondistended, normoactive bowel sounds. No palpable organomegaly. MUSCULOSKELETAL: No joint swelling or deformity. EXTREMITIES: No cyanosis, clubbing, or pedal edema. NEUROLOGICAL: Gross neurological examination did not reveal any focal deficits. Diffusely weak SKIN: No rashes. Pale Assessment: T11 burst fracture with severe collapse and kyphosis, status post T11 vertebral body fracture with T8-11 decompression and fusion with kyphosis correction at the T7 Acute hypoxic respiratory failure, likely secondary to volume overload. Showing pulmonary vascular congestion, concern for atelectasis History of COPD, not in exacerbation Abdominal pain, likely secondary to a component of constipation as patient has been taking multiple narcotics and has not had a bowel movement, will obtain imaging History of osteoarthritis Hypothyroidism Continued ongoing nicotine dependence GI prophylaxis DVT prophylaxis Full code Plan: Patient initially admitted under orthopedic services Dr. Holbrook and is status post decompression and fusion with kyphosis correction, patient continues to report significant pain with orthopedics to manage. Patient is lethargic and sleeping most of the day per nursing staff. Attempting to sit in the chair more frequently although patient becomes more weak and nauseated and wants to get back in bed Recommend PT/OT therapy daily as patient will be going home on discharge she reports. Patient may benefit from ECF on discharge. Medications reviewed and resumed as appropriate including inhalers as patient does have history of COPD. Not in exacerbation at this time. Patient is having some upper bronchial congestion appears to be pulmonary congestion. Chest x-ray showing pulmonary vascular congestion. Patient is wearing 4 L of oxygen via nasal cannula and does not wear oxygen normally. Failed home oxygen evaluation at 76% and desats quickly. Per nursing staff patient is not doing incentive spirometer and has been reinforced multiple times and strongly encouraged at least 10 times every hour while awake. Also encouraged patient to sit up in the chair for all meals and most of the day Encouraged increase activity as tolerated with restrictions per orthopedics. Continue with TLSO brace while out of bed Patient is voiding and recommend to monitor intake and output closely. Patient reports abdominal pain and will obtain imaging including CT abdomen chest pelvis for further evaluation. Showing moderate stool. Continue with [place] enema along with lactulose until having bowel movements Family at the bedside is extremely concerned about her overall wellbeing as they report she is never this debilitated and unwell looking. On CT, shows pleural effusion as well as atelectasis and will consult pulmonary and appreciate input and recommendations. Have been giving gentle daily Lasix with minimal improvements Will follow-up on repeat labs, replace electrolytes per protocol Orthopedics has transitioned care over to medicine as they were planning on discharging today if medically stable. Patient is not ready for discharge at this time The impression and plan of care has been dictated by Tosin Lawrence, Nurse Practitioner as directed. Dr. Lucie MD I have performed a history and examination and MDM of this patient, discussed the same with the dictator, and agree with the dictator's assessment and plan as written ,documented as a scribe. Based on total visit time, I have performed more than 50% of the visit. Objective - Vital Signs Vital signs: Vital Signs Temp 98 F 11/13/24 07:09 Pulse 86 11/13/24 07:09 Resp 17 11/13/24 07:09 BP 134/71 11/13/24 07:09 Pulse Ox 90 L 11/13/24 07:09 FiO2 Intake & Output 11/12/24 11/13/24 11/13/24 18:59 06:59 18:59 Intake Total 100 Output Total 100 Balance 0 Intake: Oral 100 Output: Urine 100 Other: Voiding Method Toilet Bedside Commode Bedside Commode # Voids 2 3 # Bowel Movements 0 - Labs CBC & Chem 7: 11/13/24 19:03 11/13/24 19:03 Labs: Abnormal Lab Results - Last 24 Hours (Table) 11/12/24 11/12/24 Range/Units 10:18 10:18 RBC 2.94 L (3.80-5.40) m/uL Hgb 9.3 L (11.4-16.0) gm/dL Hct 28.5 L (34.0-46.0) % Lymphocytes # 0.5 L (1.0-4.8) k/uL Carbon Dioxide 39 H (22-30) mmol/L Glucose 105 H (74-99) mg/dL Total Protein 4.7 L (6.3-8.2) g/dL Albumin 2.6 L (3.5-5.0) g/dL
[2024-11-14 09:22] LABS: HCT 29.5 % (37.2-46.3); HGB 9.3 g/dL (12.0-15.0); MCH 30.2 pg (27.0-32.0); MCHC 31.5 g/dL (32.0-37.0); MCV 95.8 FL (80.0-97.0); Mean Platelet Volume 10.8 FL (9.5-12.2); NRBC Per 100 WBC 0 X 10*3/uL (0.00-0.01); Platelet Count 226 X 10*3/uL (140-440); RBC 3.08 X 10*6/uL (4.10-5.20); WBC 8.94 X 10*3/uL (4.50-10.00)
[2024-11-14 10:01] LABS: Basophils # (A) 0.02 X 10*3/uL (0.00-0.10); Basophils % (A) 0.2 %; Eosinophils # (A) 0.02 X 10*3/uL (0.04-0.35); Eosinophils % (A) 0.2 %; Lymphocytes # (A) 0.23 X 10*3/uL (0.90-5.00); Lymphocytes % (A) 2.6 %; Monocytes # (A) 0.91 X 10*3/uL (0.20-1.00); Monocytes % (A) 10.2 %; Neutrophils # (A) 7.72 X 10*3/uL (1.80-7.70); Neutrophils % (A) 86.4 %
[2024-11-14] MEDS: PIPERACILLIN-TAZOBACTAM 3.375 GM in SODIUM CHLORIDE 0.9% 100 ML IVPB SCH (10:27)
[2024-11-14 11:45] LABS: Blood Urea Nitrogen 15.6 mg/dL (9.0-27.0); Calcium 8.7 mg/dL (8.7-10.3); Carbon Dioxide 34.1 mmol/L (21.6-31.8); Chloride 94 mmol/L (96-109); Glucose 116 mg/dL (70-110); Potassium 3.4 mmol/L (3.5-5.5); Sodium 140 mmol/L (135-145)
--- NOTE | 2024-11-14 12:01 | P.CRDCN ---
History of Present Illness Consult date: 11/14/24 Reason for Consult (text): Abnormal EKG History of present illness: This is a 68-year-old female with past medical history of COPD, tobacco use and dependence, hypothyroidism. We have been asked to evaluate patient for abnormal EKG. Patient was brought into the hospital on 11/09 due to T11 burst compression fracture status post surgical intervention performed on 11/09. Her postop period was complicated by acute hypoxic respiratory failure from fluid overload, constipation with possible ileus. An EKG was performed which was concerning for abnormality with ischemia. Patient is seen this morning and complaining of low back pain. She denies having chest pain or pressure. She does not have any previous cardiac workup done. She does complain of cough with sputum production and it is hard to bring up her sputum. Blood pressure 125/62, heart rate 70, pulse ox 97% on 4 L nasal cannula. -EKG: Sinus rhythm with no acute ST-T wave changes -Echocardiogram performed on this admission reveals EF of 55%, mild concentric LVH, severe LA dilatation. No obvious regional wall motion abnormality. -Chest abdominal and pelvic CAT scan: Noncalcified nodule in the right upper lobe. Right pleural effusion. Right lower lobe consolidation atherosclerotic disease and ASCVD. Large amount of stool and fluid within the colon. -Laboratory studies: WBC 8.9, hemoglobin 9.3. Sodium 140, potassium 3.4, creatinine 0.6. -Home cardiac medications: None Review Of Systems: At the time of my exam: CONSTITUTIONAL: Denies fever or chills. HEENT: Denies blurred vision, vision changes, or eye pain. Denies hemoptysis CARDIOVASCULAR: Denies chest pain. Denies orthopnea. Denies PND. Denies palpitations RESPIRATORY: Denies shortness of breath. GASTROINTESTINAL: Denies abdominal pain. Denies nausea or vomiting. HEMATOLOGIC: Denies bleeding disorders. GENITOURINARY: Denies any blood in urine. SKIN: Denies puritis. Denies rash. Physical examination: Gen: This is a 68-year-old female in no acute respiratory distress VS: reviewed HEENT: Head is atraumatic, normocephalic. Pupils equal, round. Sclerae is anicteric. NECK: Supple. No JVD. LUNGS: Clear to auscultation. No wheezes or rhonchi. No intercostal retractions. HEART: Regular rate and rhythm. No murmur. ABDOMEN: Soft No tenderness. EXTREMITIES: No pedal edema. No calf tenderness. NEUROLOGICAL: Patient is awake, alert and oriented x3. Assessment: EKG has been reviewed and no acute findings noted T11 burst fracture status post surgical intervention Acute hypoxic respiratory failure secondary to volume overload with possible pneumonia on imaging COPD Constipation Hypothyroidism Plan: Mild coronary artery calcification was noted on CT but no evidence of ischemia on EKG nor echocardiogram. Will plan to obtain a troponin for completeness. No further cardiac workup at this time. If this is normal, patient is cleared from cardiology for discharge. She may follow-up in the office in a few weeks. Thank you kindly for this consultation. Nurse practitioner note has been reviewed, I agree with documented findings and plan of care. Patient was seen and examined. Past Medical History Past Medical History: COPD, Osteoarthritis (OA), Thyroid Disorder Additional Past Medical History / Comment(s): hypothyroidism, T11 fracture after moving heavy items, arthritis bilat. hands History of Any Multi-Drug Resistant Organisms: None Reported Past Surgical History: Hernia Repair, Hysterectomy Additional Past Surgical History / Comment(s): breast augmentation 40 years ago Past Anesthesia/Blood Transfusion Reactions: Postoperative Nausea & Vomiting (PONV) Past Psychological History: No Psychological Hx Reported Smoking Status: Current every day smoker Past Alcohol Use History: None Reported Additional Past Alcohol Use History / Comment(s): smokes 1 ppd, started smoking 1967 Past Drug Use History: None Reported - Past Family History Father Family Medical History: Cancer Additional Family Medical History / Comment(s): renal cancer Mother Additional Family Medical History / Comment(s): emphysema Medications and Allergies Home Medications Medication Instructions Recorded Confirmed Type Albuterol Sulfate [Proair Hfa] 2 puff INHALATION RT-QID PRN 10/11/21 11/09/24 History Fluticasone/Umeclidin/Vilanter 1 puff INHALATION RT-DAILY 10/11/21 11/09/24 History [Trelegy Ellipta 100-62.5-25] Levothyroxine Sodium [Synthroid] 125 mcg PO DAILY 10/11/21 11/09/24 History Loratadine-Pseudoeph 5-120 mg 1 tab PO Q12H PRN 10/11/21 11/09/24 History [Claritin-D 12 Hour] Ascorbic Acid [Vitamin C] 500 mg PO BID #60 tab 10/14/21 11/09/24 Rx Cholecalciferol [Vitamin D3 (25 100 mcg PO DAILY #100 tablet 10/14/21 11/09/24 Rx Mcg = 1000 Iu)] Nicotine 21Mg/24Hr Patch [Habitrol] 1 patch TRANSDERM DAILY #14 patch 10/14/21 11/09/24 Rx HYDROcodone/APAP 10-325MG [[place] 1 tab PO BID 11/02/24 11/09/24 History 10-325] Cyclobenzaprine [Flexeril] 5 mg PO TID #21 tablet 11/13/24 Rx HYDROcodone/APAP 10-325MG [[place] 1 tab PO Q6HR PRN #28 tab 11/13/24 Rx 10-325] Ondansetron [Zofran] 4 mg PO Q8HR PRN #12 tab 11/13/24 Rx Sennosides/Docusate Sodium [[place] 1 each PO DAILY #20 capsule 11/13/24 Rx Plus 8.6-50 mg Softgel] cefaDROXiL [Duricef] 500 mg PO Q12HR 5 Days #10 cap 11/13/24 Rx polyethylene glycoL 3350 [Miralax] 17 gm PO DAILY #2 packet 11/13/24 Rx Allergies Allergy/AdvReac Type Severity Reaction Status Date / Time No Known Allergies Allergy Verified 11/09/24 07:37 Physical Exam Vitals: Vital Signs Temp Pulse Resp BP Pulse Ox Pulse Ox 11/14/24 01:33 97.9 F 70 18 125/62 97 11/13/24 19:28 98.2 F 98 14 98/60 92 L 11/13/24 15:43 76 L 11/13/24 14:09 98.8 F 104 H 18 130/61 92 L Results 11/14/24 03:41 11/14/24 03:41 Cardiac Enzymes 11/13/24 Range/Units 19:03 AST 25 (14-36) U/L CBC 11/13/24 11/14/24 Range/Units 19:03 03:41 WBC 8.8 8.94 (3.8-10.6) k/uL RBC 3.49 L 3.08 L (3.80-5.40) m/uL Hgb 10.9 L 9.3 L (11.4-16.0) gm/dL Hct 33.2 L 29.5 L (34.0-46.0) % Plt Count 215 226 (150-450) k/uL Comprehensive Metabolic Panel 11/13/24 Range/Units 19:03 Sodium 136 L (137-145) mmol/L Potassium 3.8 (3.5-5.1) mmol/L Chloride 93 L (98-107) mmol/L Carbon Dioxide 37 H (22-30) mmol/L BUN 17 (7-17) mg/dL Creatinine 0.56 (0.52-1.04) mg/dL Glucose 132 H (74-99) mg/dL Calcium 9.4 (8.4-10.2) mg/dL AST 25 (14-36) U/L ALT 11 (4-34) U/L Alkaline Phosphatase 99 (38-126) U/L Total Protein 5.9 L (6.3-8.2) g/dL Albumin 3.2 L (3.5-5.0) g/dL Current Medications Generic Name Dose Route Start Last Admin Trade Name Freq PRN Reason Stop Dose Admin Hydrocodone Bitart/Acetaminophen 1 each 11/12/24 09:55 11/14/24 10:28 Hydrocodone/Apap 10-325mg 1 Each Tab PO 1 each Q6HR PRN Administration Pain Scale 7 - 10 Albuterol/Ipratropium 3 ml 11/14/24 12:00 Ipratropium-Albuterol 3 Ml Neb INHALATION RT-QID FELIX Ascorbic Acid 500 mg 11/10/24 09:00 11/14/24 10:28 Ascorbic Acid 500 Mg Tab PO 500 mg BID FELIX Administration Aspirin 81 mg 11/10/24 09:00 11/14/24 10:28 Aspirin 81 Mg PO 81 mg DAILY FELIX Administration Bisacodyl 10 mg 11/09/24 14:29 Bisacodyl 10 Mg Supp RECTAL DAILY PRN Constipation Budesonide/Formoterol Fumarate 2 puff 11/10/24 08:00 11/14/24 09:40 Symbicort 80-4.5 Mcg Inhaler INHALATION Not Given RT-BID FELIX Calcium Carbonate/Glycine 1,000 mg 11/11/24 18:22 11/11/24 20:34 Calcium Carbonate 500 Mg Chewable PO 1,000 mg QID PRN Administration Heartburn Cholecalciferol 100 mcg 11/10/24 09:00 11/14/24 10:27 Cholecalciferol 25 Mcg (1000 Iu) Tablet PO 100 mcg DAILY FELIX Administration Cyclobenzaprine HCl 5 mg 11/09/24 14:29 11/13/24 18:45 Cyclobenzaprine 5 Mg Tab PO 5 mg TID PRN Administration Muscle Spasm Hydromorphone HCl 0.5 mg 11/09/24 14:29 11/13/24 07:39 Hydromorphone 0.5 Mg/0.5 Ml Syringe IVP 0.5 mg Q3HR PRN Administration Pain Scale 4 - 6 Piperacillin Sod/Tazobactam 100 mls @ 25 mls/hr 11/14/24 11:00 11/14/24 10:27 Sod 3.375 gm/ Sodium Chloride IVPB 25 mls/hr Q8H FELIX Administration Protocol Ketorolac Tromethamine 15 mg 11/12/24 09:53 11/14/24 09:55 Ketorolac 15 Mg/Ml 1 Ml Vial IVP 11/17/24 09:54 15 mg Q6HR PRN Administration Pain Lactobacillus Acidophilus 1 each 11/13/24 10:00 11/14/24 10:27 Lactobacillus Acidophilus/Pect 1 Each Capsule PO 1 each BID FELIX Administration Lactulose 20 gm 11/13/24 21:00 11/14/24 10:27 Lactulose 20 Gm/30 Ml Cup PO 20 gm BID FELIX Administration Levothyroxine Sodium 125 mcg 11/10/24 06:00 11/14/24 06:34 Levothyroxine 125 Mcg Tab PO 125 mcg DAILY@0600 FELIX Administration Loratadine/Pseudoephedrine Sulfate 1 each 11/09/24 23:03 Loratadine-Pseudoeph 5-120 Mg 1 Each Tab.Er.12h PO Q12H PRN Allergy Symptoms Magnesium Hydroxide 2,400 mg 11/09/24 14:29 Magnesium Hydroxide 2,400 Mg/30 Ml Cup PO DAILY PRN Constipation Nicotine 1 patch 11/10/24 09:00 11/14/24 10:28 Nicotine 21mg/24hr Patch TRANSDERM Not Given DAILY FELIX Ondansetron HCl 4 mg 11/09/24 14:29 11/14/24 00:54 Ondansetron 4 Mg/2 Ml Vial IVP 4 mg Q8HR PRN Administration Nausea And Vomiting Pantoprazole Sodium 40 mg 11/12/24 07:30 11/14/24 06:34 Pantoprazole 40 Mg Tablet PO 40 mg [id number] FELIX Administration Polyethylene Glycol 17 gm 11/11/24 10:30 11/14/24 10:28 Polyethylene Glycol 3350 17 Gm Powd.Pack PO 17 gm DAILY FELIX Administration Senna/Docusate Sodium 2 each 11/10/24 09:00 11/14/24 10:27 Sennosides-Docusate Sodium 1 Each Tab PO 2 each DAILY FELIX Administration Sodium Biphosphate/Sodium Phosphate 133 ml 11/09/24 14:29 Na Phos,M-B/Na Phos,Di-Ba 133 Ml Enema RECTAL DAILY PRN Constipation 11/14/24 03:41 11/13/24 19:03
[2024-11-14] MEDS: IPRATROPIUM-ALBUTEROL 3 ML NEB INHALATION SCH (13:18)
--- NOTE | 2024-11-14 13:18 | P.CNPUL ---
History of Present Illness Consult date: 11/14/24 Reason for consult: dyspnea, pneumonia History of present illness: 11/14/2024, the patient is being seen due to concerns of hypoxemia. The patient is a 68-year-old, known to have COPD chronic smoker and she continues to smoke cigarettes. The patient presented to the hospital on 11/09/2024 for a T11 burst fracture and the patient underwent surgery open treatment T11 vertebral body fracture with T8-L2 decompression and fusion with kyphosis correction and T10- T11 and T11-T12 interbody fusion with T7 kyphoplasty. As the patient was recovering from her surgery, she was noted to be hypoxemic and she is currently on 40 Suboxone by nasal cannula. She has some limited congested cough. Chest x-ray was done and this was followed up by CAT scan of the chest abdomen and pelvis that was done on 11/13/2024. Reviewed the CAT scan of the chest and there is development of an extensive right lower lobe consolidation consistent with pneumonia. CAT scan of the abdomen and pelvis also showed a large quantity of stool within the colon which is currently being treated. No altered mentation. Pain is under good control. The white cell count is 8.9 with a hemoglobin 9.3 and a platelet count of 226. BUN is 15 with a creatinine of 0.6 and a sodium levels at 140. Troponins are negative. Procalcitonin level is at 0.13. Review of Systems Constitutional: Reports fatigue, Reports weakness Eyes: denies as per HPI, denies blurred vision, denies bulging eye, denies decreased vision, denies diplopia, denies discharge, denies dry eye, denies irritation, denies itching, denies pain, denies photophobia, denies loss of peripheral vision, denies loss of vision, denies tunnel vision/blind spots Ears: deny: decreased hearing, ear discharge, earache, tinnitus Ears, nose, mouth and throat: Reports as per HPI Breasts: absent: as per HPI, change in shape, gynecomastia, masses, nipple discharge, pain, skin changes, swelling Cardiovascular: Reports as per HPI, Reports decreased exercise tolerance, Reports dyspnea on exertion Respiratory: Reports cough, Reports dyspnea Gastrointestinal: Reports as per HPI Genitourinary: Reports as per HPI Menstruation: Reports as per HPI Musculoskeletal: Reports low back pain Musculoskeletal: absent: ankle pain, ankle stiffness, ankle swelling, as per HPI, elbow pain, elbow stiffness, elbow swelling, foot pain, foot stiffness, foot swelling, hand pain, hand stiffness, hand swelling, hip pain, hip stiffness, hip swelling, knee pain, knee stiffness, knee swelling, shoulder pain, shoulder stiffness, shoulder swelling, wrist pain, wrist stiffness, wrist swelling Integumentary: Reports as per HPI Psychiatric: Reports as per HPI Endocrine: Reports as per HPI Hematologic/Lymphatic: Reports as per HPI Allergic/Immunologic: Reports as per HPI Past Medical History Past Medical History: COPD, Osteoarthritis (OA), Thyroid Disorder Additional Past Medical History / Comment(s): hypothyroidism, T11 fracture after moving heavy items, arthritis bilat. hands History of Any Multi-Drug Resistant Organisms: None Reported Past Surgical History: Hernia Repair, Hysterectomy Additional Past Surgical History / Comment(s): breast augmentation 40 years ago Past Anesthesia/Blood Transfusion Reactions: Postoperative Nausea & Vomiting (PONV) Past Psychological History: No Psychological Hx Reported Smoking Status: Current every day smoker Past Alcohol Use History: None Reported Additional Past Alcohol Use History / Comment(s): smokes 1 ppd, started smoking 1967 Past Drug Use History: None Reported - Past Family History Father Family Medical History: Cancer Additional Family Medical History / Comment(s): renal cancer Mother Additional Family Medical History / Comment(s): emphysema Medications and Allergies Home Medications Medication Instructions Recorded Confirmed Type Albuterol Sulfate [Proair Hfa] 2 puff INHALATION RT-QID PRN 10/11/21 11/09/24 History Fluticasone/Umeclidin/Vilanter 1 puff INHALATION RT-DAILY 10/11/21 11/09/24 History [Trelegy Ellipta 100-62.5-25] Levothyroxine Sodium [Synthroid] 125 mcg PO DAILY 10/11/21 11/09/24 History Loratadine-Pseudoeph 5-120 mg 1 tab PO Q12H PRN 10/11/21 11/09/24 History [Claritin-D 12 Hour] Ascorbic Acid [Vitamin C] 500 mg PO BID #60 tab 10/14/21 11/09/24 Rx Cholecalciferol [Vitamin D3 (25 100 mcg PO DAILY #100 tablet 10/14/21 11/09/24 Rx Mcg = 1000 Iu)] Nicotine 21Mg/24Hr Patch [Habitrol] 1 patch TRANSDERM DAILY #14 patch 10/14/21 11/09/24 Rx HYDROcodone/APAP 10-325MG [[place] 1 tab PO BID 11/02/24 11/09/24 History 10-325] Cyclobenzaprine [Flexeril] 5 mg PO TID #21 tablet 11/13/24 Rx HYDROcodone/APAP 10-325MG [[place] 1 tab PO Q6HR PRN #28 tab 11/13/24 Rx 10-325] Ondansetron [Zofran] 4 mg PO Q8HR PRN #12 tab 11/13/24 Rx Sennosides/Docusate Sodium [Senna 1 each PO DAILY #20 capsule 11/13/24 Rx Plus 8.6-50 mg Softgel] cefaDROXiL [Duricef] 500 mg PO Q12HR 5 Days #10 cap 11/13/24 Rx polyethylene glycoL 3350 [Miralax] 17 gm PO DAILY #2 packet 11/13/24 Rx Allergies Allergy/AdvReac Type Severity Reaction Status Date / Time No Known Allergies Allergy Verified 11/09/24 07:37 Physical Exam Vitals: Vital Signs Temp Pulse Resp BP Pulse Ox Pulse Ox 11/14/24 01:33 97.9 F 70 18 125/62 97 11/13/24 19:28 98.2 F 98 14 98/60 92 L 11/13/24 15:43 76 L 11/13/24 14:09 98.8 F 104 H 18 130/61 92 L The patient appeared well nourished and normally developed. Vital signs as documented. Patient is currently on 40 of oxygen by nasal cannula Head exam is unremarkable. No scleral icterus or corneal arcus noted. Neck is without jugular venous distension, thyromegaly, or carotid bruits. Schwartz tid upstrokes are brisk bilaterally. Lungs show diminished breath sound bilaterally along with right basilar crackle Cardiac exam reveals the PMI to be normally sized and situated. Rhythm is regular. First and second heart sounds normal. No murmurs, rubs or gallops. Abdominal exam reveals normal bowel sounds, no masses, no organomegaly and no aortic enlargement. Extremities are nonedematous and both femoral and pedal pulses are normal. Examination of the skin revealed no evidence of significant rashes, suspicious appearing nevi or other concerning lesions. Neurologically, the patient is awake and alert and the patient does not have any focal neurological deficit. Cranial nerves are essentially intact. Results - Laboratory Findings CBC and BMP: 11/14/24 03:41 11/14/24 03:41 Abnormal lab findings: Abnormal Labs 11/09/24 11/10/24 11/10/24 17:08 04:14 04:14 WBC 14.9 H RBC 3.52 L 3.17 L Hgb 11.0 L 10.2 L Hct 31.2 L MCHC Neutrophils # 13.3 H 7.8 H Lymphocytes # 0.8 L 0.7 L Eosinophils # Sodium Chloride Carbon Dioxide BUN 7.3 L Glucose Calcium 7.9 L Total Protein Albumin Lipase 11/12/24 11/12/24 11/13/24 10:18 10:18 19:03 WBC RBC 2.94 L 3.49 L Hgb 9.3 L 10.9 L Hct 28.5 L 33.2 L MCHC Neutrophils # 7.8 H Lymphocytes # 0.5 L 0.3 L Eosinophils # Sodium Chloride Carbon Dioxide 39 H BUN Glucose 105 H Calcium Total Protein 4.7 L Albumin 2.6 L Lipase 11/13/24 11/14/24 19:03 03:41 WBC RBC 3.08 L Hgb 9.3 L Hct 29.5 L MCHC 31.5 L Neutrophils # 7.72 H Lymphocytes # 0.23 L Eosinophils # 0.02 L Sodium 136 L Chloride 93 L Carbon Dioxide 37 H BUN Glucose 132 H Calcium Total Protein 5.9 L Albumin 3.2 L Lipase <10 L Assessment and Plan Plan: T11 burst fracture, status post open treatment T11 vertebral body fracture with T8-L2 decompression and fusion with kyphosis correction and T10-T11 and T11-T12 interbody fusion with T7 kyphoplasty. Surgery was done on 11/09/2024 and the patient is currently postop day #5 Acute hypoxic respiratory failure currently on 4 L of oxygen by nasal cannula Right lower lobe pneumonia with extensive consolidation. Rule out hospital- acquired pneumonia. Rule out aspiration. Constipation with fecal impaction COPD Shortness of breath secondary to above Chronic smoker Hypothyroidism Osteoarthritis Plan Cover the patient with IV Zosyn 3.375 g every 8 hours Sputum Gram stain and culture DuoNeb nebulized treatments [id number] Titrate oxygen flow to maintain saturation above 90% Treatment of constipation per orthopedic surgery Postop surgical care following spine surgery Will continue to follow
[2024-11-14] MEDS: POTASSIUM CHLORIDE ER 20 MEQ TAB.ER PO STA (13:22)
[2024-11-14] MEDS: bisacodyL 10 MG SUPP RECTAL PRN (17:49)
--- NOTE | 2024-11-14 20:58 | P.PN ---
Subjective Progress Note Date: 11/14/24 This is a 68-year-old female who was admitted under orthopedic services for T11 burst fracture with severe collapse and kyphosis. Patient is status post open treatment T11 vertebral body fracture with T8-11 decompression and fusion with kyphosis correction along with T11-T12 interbody fusion with kyphoplasty at the T7. Patient follows with Dr. Zafar in the outpatient setting with a past medical history of COPD, osteoarthritis, thyroid, current everyday smoker. Patient denies any illicit drug use or significant alcohol use. Patient is postop day 1 sitting up in the chair falling asleep during conversation reports significant pain. Patient awaiting to work with physical therapy. Plan is to return home on discharge and has support services in the home. 11/11/2024 Patient is seen in follow-up today status post surgical intervention with orthopedics. Patient is currently sleeping in bed although arousable. Breath sounds are congested and patient is requiring oxygen although does not normally wear oxygen outpatient. Patient is a smoker and does have history of COPD does not appear to be exacerbated at this time. Will obtain a chest x-ray and strongly encouraged incentive spirometer use and sitting up in the chair more frequently. Patient work with physical therapy as she reports she will be going home on discharge. Will add DuoNebs 4 times daily and continue with her inhalers. 11/12/2024 Patient is seen in follow-up today continues to have some cough and congestion and was given a dose of Lasix with some improvement, 2D echo is pending and will order BNP. Patient reports no history of heart failure. Patient is continued on 4 L of oxygen currently and does not wear oxygen outpatient. Patient does have history of COPD and is a smoker. Patient also on exam has a large fan directly pointed towards her continuously in the room. Encouraged removing that and also sitting up in the chair more frequently and using incentive spirometer more often. Patient is afebrile and denies any shortness of breath. Patient continues with significant pain and generalized weakness. Awaiting to work with PT/OT therapy again and has an LSO brace ordered 11/13/2024 Patient is seen in follow-up today has been sitting up in the chair although reports to feeling extremely nauseated and uncomfortable when sitting up and has made her way back to the bed. Patient continues with TLSO brace while out of bed and currently has the brace on in bed. Patient has been instructed and enc ouraged to continue with incentive spirometer more frequently and at least 10 times every hour while awake. Patient needs encouragement as she has not been doing so and is extremely weak when doing it. Discussed with nursing staff about reeducating proper use of incentive spirometer. Family at the bedside and this was encouraged as well. Patient continues on 4 to 5 L via nasal cannula with concerns of some vascular congestion and has been given a dose of Lasix. Patient appears euvolemic on exam and also is not eating much as patient is having significant abdominal pain. Patient passing some gas but has not had a bowel movement. Patient does have scheduled bowel regimen as well as as needed and has been refusing some. Discussed with patient and family at the bedside about an enema and she is agreeable. Lactulose to continue until having regular bowel movements. 2D echo was taken and patient is reporting some overall discomfort will consult cardiology and appreciate input and recommendations. Patient is afebrile at this time. Orthopedics has transferred care over to medicine as they were planning on discharging her if cleared medically. 11/14/2024 Patient evaluated today resting in bed she is more awake alert today. Continues on 4 to 5 L of oxygen via nasal cannula with saturations of 98%. There is concern for vascular congestion and right pleural effusion patient was given a dose of IV Lasix. Clinically she does not appear volume overloaded at this time. CT of the chest abdomen pelvis was completed last night findings reveal a large quantity of stool within the colon consider combination of constipation/diarrhea. Appendix is unremarkable. There is a probable simple hepatic cyst. No gallstones. No renal calculus or hydronephrosis. There is concern that there is a possible infiltrate she was started on IV Zosyn. Incentive spirometer at the bedside and discussed with patient the importance of using 10 x an hour while awake. Review of systems: Constitutional: reports of fatigue, no fever, or chills Cardiovascular: reports of occasional chest pain, no palpitations Respiratory: reports of shortness of breath reports, occasional weak cough GI: reports of nausea, no vomiting, no bowel movement as of yet : No reports of dysuria or retention Neurovascular: reports of generalized weakness and continued back pain The rest of the 14-point review of systems is negative. PHYSICAL EXAMINATION: GENERAL: The patient is asleep although easily arousable alert and oriented x3. Well developed, thin built, appears older than stated age, ill-appearing HEENT: Pupils are round and equally reacting to light. EOMI. No scleral icterus. No conjunctival pallor. Normocephalic, atraumatic. No pharyngeal erythema. No thyromegaly. CARDIOVASCULAR: S1 and S2 muffled PULMONARY: Diminished breath sounds bilaterally with some bronchial congestion and some expiratory wheezing noted. Faint crackles noted in the bases ABDOMEN: Soft, mildly tender on palpation of lower quadrants, nondistended, normoactive bowel sounds. No palpable organomegaly. MUSCULOSKELETAL: No joint swelling or deformity. EXTREMITIES: No cyanosis, clubbing, or pedal edema. NEUROLOGICAL: Gross neurological examination did not reveal any focal deficits. Diffusely weak SKIN: No rashes. Pale Assessment: T11 burst fracture with severe collapse and kyphosis, status post T11 vertebral body fracture with T8-11 decompression and fusion with kyphosis correction at the T7 Acute hypoxic respiratory failure, likely secondary to volume overload. Showing pulmonary vascular congestion. Right lower lobe pneumonia, consider aspiration. History of COPD, not in exacerbation Abdominal pain, likely secondary to a component of constipation as patient has been taking multiple narcotics and has not had a bowel movement. CT reveals likely fecal impaction. History of osteoarthritis Hypothyroidism Continued ongoing nicotine dependence GI prophylaxis DVT prophylaxis Full code Plan: Patient initially admitted under orthopedic services Dr. Holbrook and is status post decompression and fusion with kyphosis correction, patient continues to report significant pain with orthopedics to manage. Patient is lethargic and sleeping most of the day per nursing staff. Attempting to sit in the chair more frequently although patient becomes more weak and nauseated and wants to get may k in bed Recommend PT/OT therapy daily as patient will be going home on discharge she reports. Patient may benefit from ECF on discharge. Medications reviewed and resumed as appropriate including inhalers as patient does have history of COPD. Not in exacerbation at this time. Patient is having some upper bronchial congestion appears to be pulmonary congestion. Chest x-ray showing pulmonary vascular congestion. Patient is wearing 4 L of oxygen via nasal cannula and does not wear oxygen normally. Failed home oxygen evaluation at 76% and desats quickly. Per nursing staff patient is not doing incentive spirometer and has been reinforced multiple times and strongly encouraged at least 10 times every hour while awake. Also encouraged patient to sit up in the chair for all meals and most of the day Encouraged increase activity as tolerated with restrictions per orthopedics. Continue with TLSO brace while out of bed Patient is voiding and recommend to monitor intake and output closely. Patient reports abdominal pain and will obtain imaging including CT abdomen chest pelvis for further evaluation. Showing moderate stool. Continue with Fleet enema along with lactulose until having bowel movements Family at the bedside is extremely concerned about her overall wellbeing as they report she is never this debilitated and unwell looking. On CT, shows pleural effusion as well as atelectasis and will consult pulmonary and appreciate input and recommendations. Have been giving gentle daily Lasix with minimal improvements. Patient was started on IV zosyn Will follow-up on repeat labs, replace electrolytes per protocol Orthopedics has transitioned care over to medicine as they were planning on discharging today if medically stable. Patient is not ready for discharge at this time. The impression and plan of care has been dictated by Shahida Kendrick Nurse Practitioner as directed. Dr. Lucie MD I have performed a history and physical examination and medical decision making of this patient, discussed the same with the dictator, and agree with the dictators assessment and plan as written, documented as a scribe. Based on total visit time, I have performed more than 50% of this visit. Objective - Vital Signs Vital signs: Vital Signs Temp 98.1 F 11/14/24 07:20 Pulse 85 11/14/24 07:20 Resp 18 11/14/24 07:20 BP 112/63 11/14/24 07:20 Pulse Ox 94 L 11/14/24 07:20 FiO2 Intake & Output 11/13/24 11/14/24 11/14/24 18:59 06:59 18:59 Output Total 500 Balance -500 Weight 59 kg Output: Urine 500 Other: Voiding Method Toilet - Labs CBC & Chem 7: 11/14/24 03:41 11/14/24 03:41 Labs: Abnormal Lab Results - Last 24 Hours (Table) 11/13/24 11/13/24 11/14/24 Range/Units 19:03 19:03 03:41 RBC 3.49 L 3.08 L (3.80-5.40) m/uL Hgb 10.9 L 9.3 L (11.4-16.0) gm/dL Hct 33.2 L 29.5 L (34.0-46.0) % MCHC 31.5 L (32.0-37.0) g/dL Neutrophils # 7.8 H 7.72 H (1.3-7.7) k/uL Lymphocytes # 0.3 L 0.23 L (1.0-4.8) k/uL Eosinophils # 0.02 L (0.04-0.35) X 10*3/uL Sodium 136 L (137-145) mmol/L Potassium (3.5-5.5) mmol/L Chloride 93 L (98-107) mmol/L Carbon Dioxide 37 H (22-30) mmol/L BUN/Creatinine Ratio (12.00-20.00) Ratio Glucose 132 H (74-99) mg/dL Total Protein 5.9 L (6.3-8.2) g/dL Albumin 3.2 L (3.5-5.0) g/dL Lipase <10 L (23-300) U/L 11/14/24 Range/Units 03:41 RBC (3.80-5.40) m/uL Hgb (11.4-16.0) gm/dL Hct (34.0-46.0) % MCHC (32.0-37.0) g/dL Neutrophils # (1.3-7.7) k/uL Lymphocytes # (1.0-4.8) k/uL Eosinophils # (0.04-0.35) X 10*3/uL Sodium (137-145) mmol/L Potassium 3.4 L (3.5-5.5) mmol/L Chloride 94 L (98-107) mmol/L Carbon Dioxide 34.1 H (22-30) mmol/L BUN/Creatinine Ratio 26.00 H (12.00-20.00) Ratio Glucose 116 H (74-99) mg/dL Total Protein (6.3-8.2) g/dL Albumin (3.5-5.0) g/dL Lipase (23-300) U/L Assessment and Plan Time with Patient: Less than 30
[2024-11-15 09:30] LABS: Basophils # (A) 0.04 X 10*3/uL (0.00-0.10); Basophils % (A) 0.4 %; Eosinophils # (A) 0.07 X 10*3/uL (0.04-0.35); Eosinophils % (A) 0.6 %; HCT 27.2 % (37.2-46.3); HGB 8.6 g/dL (12.0-15.0); Lymphocytes # (A) 0.58 X 10*3/uL (0.90-5.00); Lymphocytes % (A) 5.4 %; MCH 30.5 pg (27.0-32.0); MCHC 31.6 g/dL (32.0-37.0); MCV 96.5 FL (80.0-97.0); Mean Platelet Volume 10.6 FL (9.5-12.2); Monocytes # (A) 0.98 X 10*3/uL (0.20-1.00); Monocytes % (A) 9.1 %; NRBC Per 100 WBC 0 X 10*3/uL (0.00-0.01); Neutrophils # (A) 9.02 X 10*3/uL (1.80-7.70); Neutrophils % (A) 83.4 %; Platelet Count 248 X 10*3/uL (140-440); RBC 2.82 X 10*6/uL (4.10-5.20); RDW 13.2 % (11.5-14.5); WBC 10.81 X 10*3/uL (4.50-10.00)
[2024-11-15 09:41] LABS: BUN/Creat Ratio 29.12 Ratio (12.00-20.00); Blood Urea Nitrogen 23.3 mg/dL (9.0-27.0); Calcium 8.3 mg/dL (8.7-10.3); Chloride 99 mmol/L (96-109); Glucose 98 mg/dL (70-110); Sodium 146 mmol/L (135-145)
[2024-11-15 12:57] LABS: Influenza A Not Detected (Not Detectd); Influenza B Not Detected (Not Detectd); RSV Not Detected (Not Detectd)
--- NOTE | 2024-11-15 13:14 | P.PN ---
Subjective Progress Note Date: 11/15/24 11/14/2024, the patient is being seen due to concerns of hypoxemia. The patient is a 68-year-old, known to have COPD chronic smoker and she continues to smoke cigarettes. The patient presented to the hospital on 11/09/2024 for a T11 burst fracture and the patient underwent surgery open treatment T11 vertebral body fracture with T8-L2 decompression and fusion with kyphosis correction and T10- T11 and T11-T12 interbody fusion with T7 kyphoplasty. As the patient was recovering from her surgery, she was noted to be hypoxemic and she is currently on 40 Suboxone by nasal cannula. She has some limited congested cough. Chest x-ray was done and this was followed up by CAT scan of the chest abdomen and pelvis that was done on 11/13/2024. Reviewed the CAT scan of the chest and there is development of an extensive right lower lobe consolidation consistent with pneumonia. CAT scan of the abdomen and pelvis also showed a large quantity of stool within the colon which is currently being treated. No altered mentation. Pain is under good control. The white cell count is 8.9 with a hemoglobin 9.3 and a platelet count of 226. BUN is 15 with a creatinine of 0.6 and a sodium levels at 140. Troponins are negative. Procalcitonin level is at 0.13. On 11/15/2024, patient is being seen for a follow-up. Awake and alert and denies having any specific complaints. She is being treated for right lower lobe pneumonia, hospital-acquired versus aspiration the patient is currently on IV Zosyn. Feeling slightly improved compared to yesterday. Producing sputum. Sputum Gram stain and culture will be also collected. Ambulating. She is postop day #6.. White cell count is at 10 with a hemoglobin of 8.6, sodium is 146, BUN is 23 with a creatinine of 0.8 and a potassium level is at 4.0. She remains on oxygen at 4 L/min nasal cannula. Using incentive spirometer. No other significant events overnight. Objective - Vital Signs Vital signs: Vital Signs Temp 97.5 F L 11/15/24 07:35 Pulse 81 11/15/24 07:35 Resp 16 11/15/24 07:35 BP 106/59 11/15/24 07:35 Pulse Ox 90 L 11/15/24 07:35 FiO2 Intake & Output 11/14/24 11/15/24 11/15/24 18:59 06:59 18:59 Other: Voiding Method Toilet Toilet Toilet # Voids 2 - Exam The patient appeared well nourished and normally developed. Vital signs as documented. Patient is currently on 40 of oxygen by nasal cannula Head exam is unremarkable. No scleral icterus or corneal arcus noted. Neck is without jugular venous distension, thyromegaly, or carotid bruits. Carotid upstrokes are brisk bilaterally. Lungs show diminished breath sound bilaterally along with right basilar crackle Cardiac exam reveals the PMI to be normally sized and situated. Rhythm is regular. First and second heart sounds normal. No murmurs, rubs or gallops. Abdominal exam reveals normal bowel sounds, no masses, no organomegaly and no aortic enlargement. Extremities are nonedematous and both femoral and pedal pulses are normal. Examination of the skin revealed no evidence of significant rashes, suspicious appearing nevi or other concerning lesions. Neurologically, the patient is awake and alert and the patient does not have any focal neurological deficit. Cranial nerves are essentially intact - Labs CBC & Chem 7: 11/15/24 03:34 11/15/24 03:34 Labs: Abnormal Lab Results - Last 24 Hours (Table) 11/14/24 11/15/24 11/15/24 Range/Units 03:41 03:34 03:34 WBC 10.81 H (4.50-10.00) X 10*3/uL RBC 2.82 L (4.10-5.20) X 10*6/uL Hgb 8.6 L (12.0-15.0) g/dL Hct 27.2 L (37.2-46.3) % MCHC 31.6 L (32.0-37.0) g/dL Immature Gran # 0.12 H (0.00-0.04) X 10*3/uL Neutrophils # 9.02 H (1.80-7.70) X 10*3/uL Lymphocytes # 0.58 L (0.90-5.00) X 10*3/uL Sodium 146 H (135-145) mmol/L Potassium 3.4 L (3.5-5.5) mmol/L Chloride 94 L (96-109) mmol/L Carbon Dioxide 34.1 H 37.0 H (21.6-31.8) mmol/L BUN/Creatinine Ratio 26.00 H 29.12 H (12.00-20.00) Ratio Glucose 116 H (70-110) mg/dL Calcium 8.3 L (8.7-10.3) mg/dL Assessment and Plan Plan: T11 burst fracture, status post open treatment T11 vertebral body fracture with T8-L2 decompression and fusion with kyphosis correction and T10-T11 and T11-T12 interbody fusion with T7 kyphoplasty. Surgery was done on 11/09/2024 and the patient is currently postop day #6 Acute hypoxic respiratory failure currently on 4 L of oxygen by nasal cannula Right lower lobe pneumonia with extensive consolidation. Rule out hospital- acquired pneumonia. Rule out aspiration. Constipation with fecal impaction COPD Shortness of breath secondary to above Chronic smoker Hypothyroidism Osteoarthritis Plan Collect sputum Gram stain and culture Clinically stable Oxygenation stable at 4 L/min nasal cannula Cover the patient with IV Zosyn 3.375 g every 8 hours DuoNeb nebulized treatments [id number] Titrate oxygen flow to maintain saturation above 90% Treatment of constipation per orthopedic surgery Postop surgical care following spine surgery Will continue to follow
--- NOTE | 2024-11-15 20:24 | P.PN ---
Subjective Progress Note Date: 11/15/24 This is a 68-year-old female who was admitted under orthopedic services for T11 burst fracture with severe collapse and kyphosis. Patient is status post open treatment T11 vertebral body fracture with T8-11 decompression and fusion with kyphosis correction along with T11-T12 interbody fusion with kyphoplasty at the T7. Patient follows with Dr. Zafar in the outpatient setting with a past medical history of COPD, osteoarthritis, thyroid, current everyday smoker. Patient denies any illicit drug use or significant alcohol use. Patient is postop day 1 sitting up in the chair falling asleep during conversation reports significant pain. Patient awaiting to work with physical therapy. Plan is to return home on discharge and has support services in the home. 11/11/2024 Patient is seen in follow-up today status post surgical intervention with orthopedics. Patient is currently sleeping in bed although arousable. Breath sounds are congested and patient is requiring oxygen although does not normally wear oxygen outpatient. Patient is a smoker and does have history of COPD does not appear to be exacerbated at this time. Will obtain a chest x-ray and strongly encouraged incentive spirometer use and sitting up in the chair more frequently. Patient work with physical therapy as she reports she will be going home on discharge. Will add DuoNebs 4 times daily and continue with her inhalers. 11/12/2024 Patient is seen in follow-up today continues to have some cough and congestion and was given a dose of Lasix with some improvement, 2D echo is pending and will order BNP. Patient reports no history of heart failure. Patient is continued on 4 L of oxygen currently and does not wear oxygen outpatient. Patient does have history of COPD and is a smoker. Patient also on exam has a large fan directly pointed towards her continuously in the room. Encouraged removing that and also sitting up in the chair more frequently and using incentive spirometer more often. Patient is afebrile and denies any shortness of breath. Patient continues with significant pain and generalized weakness. Awaiting to work with PT/OT therapy again and has an LSO brace ordered 11/13/2024 Patient is seen in follow-up today has been sitting up in the chair although reports to feeling extremely nauseated and uncomfortable when sitting up and has made her way back to the bed. Patient continues with TLSO brace while out of bed and currently has the brace on in bed. Patient has been instructed and enc ouraged to continue with incentive spirometer more frequently and at least 10 times every hour while awake. Patient needs encouragement as she has not been doing so and is extremely weak when doing it. Discussed with nursing staff about reeducating proper use of incentive spirometer. Family at the bedside and this was encouraged as well. Patient continues on 4 to 5 L via nasal cannula with concerns of some vascular congestion and has been given a dose of Lasix. Patient appears euvolemic on exam and also is not eating much as patient is having significant abdominal pain. Patient passing some gas but has not had a bowel movement. Patient does have scheduled bowel regimen as well as as needed and has been refusing some. Discussed with patient and family at the bedside about an enema and she is agreeable. Lactulose to continue until having regular bowel movements. 2D echo was taken and patient is reporting some overall discomfort will consult cardiology and appreciate input and recommendations. Patient is afebrile at this time. Orthopedics has transferred care over to medicine as they were planning on discharging her if cleared medically. 11/14/2024 Patient evaluated today resting in bed she is more awake alert today. Continues on 4 to 5 L of oxygen via nasal cannula with saturations of 98%. There is concern for vascular congestion and right pleural effusion patient was given a dose of IV Lasix. Clinically she does not appear volume overloaded at this time. CT of the chest abdomen pelvis was completed last night findings reveal a large quantity of stool within the colon consider combination of constipation/diarrhea. Appendix is unremarkable. There is a probable simple hepatic cyst. No gallstones. No renal calculus or hydronephrosis. There is concern that there is a possible infiltrate she was started on IV Zosyn. Incentive spirometer at the bedside and discussed with patient the importance of using 10 x an hour while awake. 11/15/2024 Patient evaluated today in follow up. Currently postoperative day #6 repair of T11 burst fracture. She feels less short of breath today and overall better than yesterday. Having productive cough. On IV zosyn. Sodium today 146. Viral panel negative. Procalcitonin level 0.27. Currently afebrile. Patient is now having bowel movements. Review of systems: Constitutional: reports of fatigue, no fever, or chills Cardiovascular: reports of occasional chest pain, no palpitations Respiratory: reports of shortness of breath reports, occasional weak cough GI: reports of nausea, no vomiting, no bowel movement as of yet : No reports of dysuria or retention Neurovascular: reports of generalized weakness and continued back pain The rest of the 14-point review of systems is negative. PHYSICAL EXAMINATION: GENERAL: The patient is asleep although easily arousable alert and oriented x3. Well developed, thin built, appears older than stated age, ill-appearing HEENT: Pupils are round and equally reacting to light. EOMI. No scleral icterus. No conjunctival pallor. Normocephalic, atraumatic. No pharyngeal erythema. No thyromegaly. CARDIOVASCULAR: S1 and S2 muffled PULMONARY: Diminished breath sounds bilaterally with some bronchial congestion and some expiratory wheezing noted. Faint crackles noted in the bases ABDOMEN: Soft, mildly tender on palpation of lower quadrants, nondistended, normoactive bowel sounds. No palpable organomegaly. MUSCULOSKELETAL: No joint swelling or deformity. EXTREMITIES: No cyanosis, clubbing, or pedal edema. NEUROLOGICAL: Gross neurological examination did not reveal any focal deficits. Diffusely weak SKIN: No rashes. Pale Assessment: T11 burst fracture with severe collapse and kyphosis, status post T11 vertebral body fracture with T8-11 decompression and fusion with kyphosis correction at the T7 Acute hypoxic respiratory failure, likely secondary to volume overload. Showing pulmonary vascular congestion. Right lower lobe pneumonia, consider aspiration. History of COPD, not in exacerbation Abdominal pain, likely secondary to a component of constipation as patient has been taking multiple narcotics and has not had a bowel movement. CT reveals likely fecal impaction. History of osteoarthritis Hypothyroidism Continued ongoing nicotine dependence GI prophylaxis DVT prophylaxis Full code Plan: Patient initially admitted under orthopedic services Dr. Holbrook and is status post decompression and fusion with kyphosis correction, patient continues to report significant pain with orthopedics to manage. Patient is lethargic and sleeping most of the day per nursing staff. Attempting to sit in the chair more frequently although patient becomes more weak and nauseated and wants to get back in bed Recommend PT/OT therapy daily as patient will be going home on discharge she reports. Patient may benefit from ECF on discharge. Medications reviewed and resumed as appropriate including inhalers as patient does have history of COPD. Not in exacerbation at this time. Patient is having some upper bronchial congestion appears to be pulmonary congestion. Chest x-ray showing pulmonary vascular congestion. Patient is wearing 4 L of oxygen via nasal cannula and does not wear oxygen normally. Failed home oxygen evaluation at 76% and desats quickly. Per nursing staff patient is not doing incentive spirometer and has been reinforced multiple times and strongly encouraged at least 10 times every hour while awake. Also encouraged patient to sit up in the chair for all meals and most of the day Encouraged increase activity as tolerated with restrictions per orthopedics. Continue with TLSO brace while out of bed Patient is voiding and recommend to monitor intake and output closely. Patient reports abdominal pain and will obtain imaging including CT abdomen chest pelvis for further evaluation. Showing moderate stool. Continue with Fleet enema along with lactulose until having bowel movements Family at the bedside is extremely concerned about her overall wellbeing as they report she is never this debilitated and unwell looking. On CT, shows pleural effusion as well as atelectasis and will consult pulmonary and appreciate input and recommendations. Have been giving gentle daily Lasix with minimal improvements. Patient was started on IV zosyn Will follow-up on repeat labs, replace electrolytes per protocol Orthopedics has transitioned care over to medicine as they were planning on discharging today if medically stable. Patient is not ready for discharge at this time. The impression and plan of care has been dictated by Shahida Kendrick Nurse Practitioner as directed. Dr. Lucie MD I have performed a history and physical examination and medical decision making of this patient, discussed the same with the dictator, and agree with the dictators assessment and plan as written, documented as a scribe. Based on total visit time, I have performed more than 50% of this visit. Objective - Vital Signs Vital signs: Vital Signs Temp 97.7 F 11/15/24 01:29 Pulse 77 11/15/24 01:29 Resp 14 11/15/24 01:29 BP 101/55 11/15/24 01:29 Pulse Ox 92 L 11/15/24 01:29 FiO2 Intake & Output 11/14/24 11/15/24 11/15/24 18:59 06:59 18:59 Other: Voiding Method Toilet Toilet Toilet # Voids 2 - Labs CBC & Chem 7: 11/15/24 03:34 11/15/24 03:34 Labs: Abnormal Lab Results - Last 24 Hours (Table) 11/14/24 11/14/24 Range/Units 03:41 03:41 RBC 3.08 L (4.10-5.20) X 10*6/uL Hgb 9.3 L (12.0-15.0) g/dL Hct 29.5 L (37.2-46.3) % MCHC 31.5 L (32.0-37.0) g/dL Neutrophils # 7.72 H (1.80-7.70) X 10*3/uL Lymphocytes # 0.23 L (0.90-5.00) X 10*3/uL Eosinophils # 0.02 L (0.04-0.35) X 10*3/uL Potassium 3.4 L (3.5-5.5) mmol/L Chloride 94 L (96-109) mmol/L Carbon Dioxide 34.1 H (21.6-31.8) mmol/L BUN/Creatinine Ratio 26.00 H (12.00-20.00) Ratio Glucose 116 H (70-110) mg/dL Assessment and Plan Time with Patient: Less than 30
[2024-11-16 09:17] LABS: BUN/Creat Ratio 25.67 Ratio (12.00-20.00); Blood Urea Nitrogen 15.4 mg/dL (9.0-27.0); Calcium 8.2 mg/dL (8.7-10.3); Carbon Dioxide 33.2 mmol/L (21.6-31.8); Chloride 96 mmol/L (96-109); Glucose 81 mg/dL (70-110); Potassium 3.7 mmol/L (3.5-5.5); Sodium 140 mmol/L (135-145)
[2024-11-16 09:28] LABS: Basophils # (A) 0.03 X 10*3/uL (0.00-0.10); Basophils % (A) 0.3 %; Eosinophils # (A) 0.29 X 10*3/uL (0.04-0.35); Eosinophils % (A) 2.9 %; HCT 25.7 % (37.2-46.3); HGB 8.2 g/dL (12.0-15.0); Lymphocytes # (A) 0.81 X 10*3/uL (0.90-5.00); MCH 30.8 pg (27.0-32.0); MCHC 31.9 g/dL (32.0-37.0); MCV 96.6 FL (80.0-97.0); Mean Platelet Volume 10.6 FL (9.5-12.2); Monocytes # (A) 0.95 X 10*3/uL (0.20-1.00); Monocytes % (A) 9.4 %; NRBC Per 100 WBC 0 X 10*3/uL (0.00-0.01); Neutrophils # (A) 7.77 X 10*3/uL (1.80-7.70); Neutrophils % (A) 76.5 %; Platelet Count 308 X 10*3/uL (140-440); RBC 2.66 X 10*6/uL (4.10-5.20); RDW 13.4 % (11.5-14.5); WBC 10.14 X 10*3/uL (4.50-10.00)
--- NOTE | 2024-11-16 10:50 | XR ---
EXAMINATION TYPE: XR chest 1V portable DATE OF EXAM: 11/16/2024 10:40 AM COMPARISON: Chest radiographs from 125 CLINICAL INDICATION: Female, 68 years old with history of RLL pneumonia; [facility] TECHNIQUE: XR chest 1V portable Frontal view of the chest. FINDINGS: Lungs/Pleura: Right lower lung airspace opacities. There is no evidence of pleural effusion, focal co nsolidation, or pneumothorax. Pulmonary vascularity: Unremarkable. Heart/mediastinum: Cardiomediastinal silhouette is unremarkable. Musculoskeletal: No acute osseous pathology. Other findings: Bilateral breast implants with capsular calcifications. IMPRESSION: Right lower lung airspace opacities correlate for pneumonia is a new from prior correlate for interva l development of pneumonia. [facility], , 11/16/2024 10:47 AM
[2024-11-16 14:12] VITALS: BP 110/73; PULSE 80; RESP 16; TEMP 98.1
--- NOTE | 2024-11-18 21:59 | P.DS ---
Providers Date of admission: 11/09/24 07:13 Attending physician: Reyes Jacobson Consults: 11/09/24 20:04 Consult Physician Routine Consulting Provider: Kali Holbrook Consult Reason/Comments: coninue to follow pt. Do you want consulting provider notified?: Yes 11/14/24 04:20 Consult Physician Routine Consulting Provider: Jovany Barbosa Consult Reason/Comments: ecg changes Do you want consulting provider notified?: Yes 11/14/24 06:51 Consult Physician Urgent Consulting Provider: Yarely Lama Consult Reason/Comments: pleural effusion, recent back surg this admission Do you want consulting provider notified?: Yes Primary care physician: Dennis Zafar Hospital Course: Final Diagnosis T11 burst fracture with severe collapse and kyphosis, status post T11 vertebral body fracture with T8-11 decompression and fusion with kyphosis correction at the T7 Acute hypoxic respiratory failure, likely secondary to volume overload. Showing pulmonary vascular congestion. Component of right lower lobe pneumonia without sepsis. Right lower lobe pneumonia, consider aspiration. Acute on chronic CHF, diastolic dysfunction, moderate to severe TR and moderate pulmonary hypertension, EF 55-60%. History of COPD, mild acute exacerbation. Abdominal pain, likely secondary to a component of constipation as patient has been taking multiple narcotics and has not had a bowel movement. CT reveals like ly fecal impaction. History of osteoarthritis Hypothyroidism Continued ongoing nicotine dependence Discharge Disposition Patient is stable for discharge home. Orthopedics recommending a course of du ricef on discharge. Continue with the TLSO brace. Patient did fail her home oxygen test and will require oxygen via nasal cannula on discharge. Pulmonary has cleared the patient. Encouraged to continue incentive spirometer 10 x a n hour while awake. Continue bowel regimen while on narcotics for pain management. Hospital Course This is a 68-year-old female who was admitted under orthopedic services for T11 burst fracture with severe collapse and kyphosis. Patient is status post open treatment T11 vertebral body fracture with T8-11 decompression and fusion with kyphosis correction along with T11-T12 interbody fusion with kyphoplasty at the T7. Patient follows with Dr. Zafar in the outpatient setting with a past medical history of COPD, osteoarthritis, thyroid, current everyday smoker. Patient denies any illicit drug use or significant alcohol use. Patient postoperative day #2 Breath sounds were congested and patient is requiring oxygen although does not normally wear oxygen outpatient. Patient is a smoker and does have history of COPD does not appear to be exacerbated at this time. Chest xray with concern for vascular congestion and developing infiltrate. Patient intially given IV lasix with improvement of symptoms although with concern for pneumonia patient was started on IV zosyn. Pulmonology and cardiology evaluated the patient. CT of the chest abdomen pelvis was completed reveal a large quantity of stool within the colon consider combination of constipation/diarrhea. Appendix is unremarkable. There is a probable simple hepatic cyst. No gallstones. No renal calculus or hydronephrosis. Patient was given bowel regimen and has had multiple bowel movements post surgical. Patient is requesting DC home and was cleared by all consultations. Not reporting any ch est pain, minimal shortness of breath, none at rest. Tolerating diet, bowels are moving and urinating without difficulty. No wheezing noted on examination. Alert x 3. Patient is discharged home. Please see medication reconciliation for a list of current medications. Thank you for allowing us to participate in the care of this patient. The impression and plan of care has been dictated by Shahida Kendrick, Nurse Practitioner as directed. Dr. Lucie MD I have performed a history and physical examination and medical decision making of this patient, discussed the same with the dictator, and agree with the dictators assessment and plan as written, documented as a scribe. Based on total visit time, I have performed more than 50% of this visit. Assessment: 1. T11 BURST COMPRESSION FRACTURE, 80% COMPRESSION ANTERIOR WEDGE DEFORMITY 2. T7 VCF, 50% ANTERIOR WEDGE COMPRESSION 3. 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 SEVERE THORACIC BACK PAIN 5. LE WEAKNESS Patient Condition at Discharge: Fair Plan - Discharge Summary Discharge Rx Participant: Yes New Discharge Prescriptions: New HYDROcodone/APAP 10-325MG [[place] 10-325] 1 tab PO Q6HR PRN #28 tab PRN Reason: Pain Cyclobenzaprine [Flexeril] 5 mg PO TID #21 tablet polyethylene glycoL 3350 [Miralax] 17 gm PO DAILY #2 packet Aspirin 81 mg PO DAILY #30 tab cefaDROXiL [Duricef] 500 mg PO Q12HR 5 Days #10 cap Sennosides/Docusate Sodium [Senna Plus 8.6-50 mg Softgel] 1 each PO DAILY #20 capsule Ondansetron [Zofran] 4 mg PO Q8HR PRN #12 tab PRN Reason: Nausea Pantoprazole [Protonix] 40 mg PO AC-BRKFST #30 tab Continue Albuterol Sulfate [Proair Hfa] 2 puff INHALATION RT-QID PRN PRN Reason: Shortness Of Breath Loratadine-Pseudoeph 5-120 mg [Claritin-D 12 Hour] 1 tab PO Q12H PRN PRN Reason: Allergy Symptoms Levothyroxine Sodium [Synthroid] 125 mcg PO DAILY Fluticasone/Umeclidin/Vilanter [Trelegy Ellipta 100-62.5-25] 1 puff INHALATION RT-DAILY Cholecalciferol [Vitamin D3 (25 Mcg = 1000 Iu)] 100 mcg PO DAILY #100 tablet Nicotine 21Mg/24Hr Patch [Habitrol] 1 patch TRANSDERM DAILY #14 patch Ascorbic Acid [Vitamin C] 500 mg PO BID #60 tab HYDROcodone/APAP 10-325MG [[place]err[place] 10-325] 1 tab PO BID Discharge Medication List Albuterol Sulfate [Proair Hfa] 2 puff INHALATION RT-QID PRN 10/11/21 [History] Fluticasone/Umeclidin/Vilanter [Trelegy Ellipta 100-62.5-25] 1 puff INHALATION R T-DAILY 10/11/21 [History] Levothyroxine Sodium [Synthroid] 125 mcg PO DAILY 10/11/21 [History] Loratadine-Pseudoeph 5-120 mg [Claritin-D 12 Hour] 1 tab PO Q12H PRN 10/11/21 [History] Ascorbic Acid [Vitamin C] 500 mg PO BID #60 tab 10/14/21 [Rx] Cholecalciferol [Vitamin D3 (25 Mcg = 1000 Iu)] 100 mcg PO DAILY #100 tablet 10/14/21 [Rx] Nicotine 21Mg/24Hr Patch [Habitrol] 1 patch TRANSDERM DAILY #14 patch 10/14/21 [Rx] HYDROcodone/APAP 10-325MG [P[place]is 10-325] 1 tab PO BID 11/02/24 [History] Cyclobenzaprine [Flexeril] 5 mg PO TID #21 tablet 11/13/24 [Rx] HYDROcodone/APAP 10-325MG [Perris 10-325] 1 tab PO Q6HR PRN #28 tab 11/13/24 [Rx] Ondansetron [Zofran] 4 mg PO Q8HR PRN #12 tab 11/13/24 [Rx] Sennosides/Docusate Sodium [Senna Plus 8.6-50 mg Softgel] 1 each PO DAILY #20 capsule 11/13/24 [Rx] cefaDROXiL [Duricef] 500 mg PO Q12HR 5 Days #10 cap 11/13/24 [Rx] polyethylene glycoL 3350 [Miralax] 17 gm PO DAILY #2 packet 11/13/24 [Rx] Aspirin 81 mg PO DAILY #30 tab 11/16/24 [Rx] Pantoprazole [Protonix] 40 mg PO AC-BRKFST #30 tab 11/16/24 [Rx] Follow up Appointment(s)/Referral(s): Dennis Zafar DO [Primary Care Provider] - 11/18/24 2:00 pm Rene Starks DO [STAFF PHYSICIAN] - 12/07/24 8:15 am [facility],Equipment [NON-STAFF] - As Needed (Call [facility] once home to arrange delivery of the oxygen concentrator) [facility], [NON-STAFF] - As Needed ([facility] will call you to schedule your in home nursing and physical therapy visits. ) Kali Holbrook DO [Doctor of Osteopathic Medicine] - 11/25/24 11:00 am Yarely Lama MD [STAFF PHYSICIAN] - 01/19/25 8:45 am Ambulatory/Diagnostic Orders: Basic Metabolic Panel [LAB.AMB] Location: None Selected Complete Blood Count w/diff [LAB.AMB] Time Frame: 3 Days, Location: None Selected Activity/Diet/Wound Care/Special Instructions: Spine Discharge and Recovery Instructions Date of Surgery: 11/09/2024 Diagnosis: T11 vertebral body fracture, thoracic kyphosis with stenosis Procedure: Open treatment T11 vertebral body fracture with T8-L2 decompression and fusion with kyphosis correction and T10-T11 and T11-T12 interbody fusion with T7 kyphoplasty Medications: See medication list All medication refills should be obtained through your primary care doctor or your clinic spine surgeon. Please discuss prescription refills at your follow up appointment. Do not call the hospital for medication refills. Activity: Encourage ambulation with assist of walker, Up and about 6-8x daily PT/OT daily work on balance, strength and mobility Up in chair with all meals Shower daily Brace: Use brace when up and about, do not wear in bed or shower Dressing: Leave your dressing in place for a total of 3 days post operatively. Then you may remove your dressing and leave open to air. Keep the area clean and if not able to keep area clean, then cover with sterile gauze and tape. Showering: You may shower 3 days after your procedure allowing soap and water to run over incision. Do not scrub. Do not soak. Blot dry. Follow up: Please confirm a follow up appointment with your surgeon 2 weeks post operativ ryne. Please make an appointment to follow up with your PCP in 1-2 weeks after surgery for evaluation '3 phase, 3-week plan' POST OP WEEKS 1-3 1. Lifting/carrying/pushing/pulling limited to less than 5 pounds. 2. Do not sit for longer than 15 minutes at one time. Get up and walk around. Prolonged sitting is NOT advised. If you lay down, see if you can tolerate laying down on you front (belly side) 3. Walk for periods of 15 minutes = 1 mile but no longer; do it multiple times times each day. 4. Ice your low back after activity. POST OP WEEKS 3-6 1. Lifting limited to less than 20 pounds. 2. Do not sit for longer than 30 minutes at a time. Frequently change positions. Use a sit-to stand workstation or take frequent breaks from sitting if you have returned to work. 3. Walk for 30 minutes each day. If possible, do these three or more times a day POST OP WEEKS 6+ At your 6-week appointment we will give you a physical therapy referral to focus on a core stabilization and strengthening program. You should also work on leg & buttock strengthening, hamstring & quadriceps stretching, and continue a low impact aerobic activity program such as swimming, walking, or riding a stationary bicycle. During the initial 6 weeks after your surgery, you are at the highest risk of re-injuring your spine. You should generally avoid BLT's (bending, lifting and twisting combination motions) and follow the above guidelines to reduce the chance of reinjury. You can anticipate post op appointments in our office at approximately 3 weeks and 6 weeks after your surgery. INCISION CARE: If your incision is not draining you do NOT need to cover it with a dressing. Keep your incision clean, dry and intact. In most cases, we apply skin glue, timothy or sutures to the incision at the time of surgery. This will be like a crust or have the appearance of a scab and will fall off in time on its own. The stitches or timothy need to be removed at 3 weeks post op appointment. You may begin to shower 3 days after surgery (this allows the glue to rivas well). However, please avoid scrubbing the incision site or peeling off any of the skin glue. This will ensure optimal healing of your incision. Also, during this time avoid soaking the incision area in water - this includes swimming pools, hot tubs or baths. No ointments, lotions or oils on the incision until your surgeon allows. Leave timothy, sutures or glue in place. Neurological dysfunction that comes on suddenly can also be a sign of a stroke. Below some common symptoms of a stroke are listed: B - balance difficulty such as sudden onset walking or leaning to one side - NEW E - eye problem such as sudden double vision or trouble seeing on one side - NEW F - Facial weakness or numbness on one side - NEW A - Arm or leg weakness or numbness on one side - NEW S - Slurred speech or difficulty with word finding - NEW T - Time is BRAIN! Call 911 as soon as you recognize these symptoms Diet: Consume a regular diet rich in vegetables and lean protein such as chicken or fish. You should consume in a ratio of approximately 20% fats|40% carbohydrates|40%protein. Vegetables, sweet potatoes, brown rice or quinoa are examples of good carbohydrates. Chips, white bread, cookies and sweets/sugar are examples of bad carbohydrates. Limit your bad carbs, go wild with good carbs. "Life's Simple 7" Guidelines as per [place] [employer] These will help you reclaim your life after surgery and coffee roaster helper in your recovery, keeping in mind your restrictions. (1) Get Active. Physical activity can help people lose weight, control high blood pressure and cholesterol, feel emotionally better, and sleep better. (2) Control Cholesterol. Avoid a diet high in saturated fat, trans fat, & cholesterol. Limit whole milk & cream, ice cream, butter, egg yolks, processed meats (like sausage and hot dogs), and fatty meats. Choose healthy foods that are low in saturated fat, trans fat and cholesterol which include: Fruits and vegetables, fiber rich grain products (like whole grain pasta and brown rice), lean meat such as chicken, fish, nuts, seeds, and legumes. (3) Eat Better. Eat small portions. Shop at the grocery with a list and do not stray from it. Tips for a healthy diet include: Limit sodium intake to less than 1500mg daily, avoid prepackaged, processed, and fast foods, choose a diet rich in fruits, vegetables, and whole grain, high fiber foods, and limit saturated & cholesterol in your diet. (4) Manage Blood Pressure. If you have high blood pressure, you should have a cuff at home so that you can check your blood pressure regularly. Be sure you have a good cuff. An arm one is generally better than a wrist one. Bring the cuff to a doctor's appointment to validate that the measurements that your cuff are taking are accurate. Take your blood pressure twice daily when you are sitting down and relaxing. Record the numbers in a log and bring this log with you to your doctors' appointments. (5) Lose Weight if your BMI is above 25. A healthy BMI is between 19-25. To calculate Your BMI, you may use a Standard BMI Calculator on the NIH BMI website: <www.nhlbi.nih.gov/guidelines/obesity/BMI/bmicalc.htm>. Weigh oneself daily. If you are overweight, set a goal to lose weight. A pound a week loss if needed is a good target. (6) Reduce Blood Sugar. Limit foods and liquids with "added sugars." (Added sugars include sucrose, fructose, glucose, maltose, dextrose, high fructose corn syrup, corn syrup, concentrated fruit juice and honey). (7) Stop Smoking. If you smoke, quitting smoking is one of the best things that you can do for your health. Smoking increases your risk of heart attack, stroke, and peripheral vascular disease, which is a build-up of plaque in your arteries. Please discard all the cigarettes and lighters in your house. Have a plan for what you will do when you have the urge to smoke. Direct and second- hand smoke shortens your life as well as the lives of your family, friends and others around you. For your health and the health of those around you, please consider quitting! Proper Bending Body Mechanics: Maintain a wide stance with one foot slightly in front of the other. Keep your back straight. Bend utilizing the strength in your hips and knees. Do not bend at the waist. Maintain the lifted object at your waist-level close to your body. Avoid lifting weight that causes immediately pain or pain anywhere in the body afterwards. Smoking/Nicotine If there was ever one thing that you could do to increase your overall health, decrease your risk of cardiovascular problems by about 39% the second you make the choice, it is to STOP SMOKING. Your body's most instant gratification is the second you stop smoking. We have all heard the studies, read the articles but it is true, smoking is extremely bad for your overall health, and moreover it is detrimental to your bone health. Nicotine, IN ANY FORM, kills bone cells, prevents your body from healing fractures, and significantly prolongs healing after surgery. In spine surgery specifically, it increases your risk of not healing your bones to create a fusion and increases your risk of having a revision surgery due to this up to 60%. I know it is hard. I know it feels impossible. But there are ways. Take control of your life. We are here to help you through it. And when you are ready, ask us and we can direct you to help if you desire. Use the START Plan to Quit Smoking (please visit the Helpguide.org website listed below for more information): S = Set a quit date. Choose a date within the next 2 weeks, so you have enough time to prepare without losing your motivation to quit. If you mainly smoke at work, quit on the weekend, so you have a few days to adjust to the change. T = Tell family, friends, and co-workers that you plan to quit. Let your friends and family in on your plan to quit smoking and tell them you need their support and encouragement to stop. Look for a quit erich who wants to stop smoking as well. You can help each other get through the rough times. A = Anticipate and plan for the challenges you'll face while quitting. Most people who begin smoking again do so within the first 3 months. You can help yourself make it through by preparing ahead for common challenges, such as nicotine withdrawal and cigarette cravings. R = Remove cigarettes and other tobacco products from your home, car, and work. Throw away all your cigarettes (no emergency pack!), lighters, ashtrays, and matches. Wash your clothes and freshen up anything that smells like smoke. Shampoo your car, clean your drapes and carpet, and steam your furniture. T = Talk to your doctor about getting help to quit. Your doctor can prescribe medication to help with withdrawal and suggest other alternatives. If you can't see a doctor, you can get many products over the counter at your local pharmacy or grocery store, including the nicotine patch, nicotine lozenges, and nicotine gum. Resources for Quitting Smoking: <https://www.[place].gov/documents/mdc h/Quit_Tobacco_Resources_for_patients_313480_7.pdf> Supplementation: Take recommended dosages of Vitamin D and Calcium to help fortify your bones and help them to heal. See your health maintenance packet for dosages and recommended levels. DVT/VTE prophylaxis: You will be given compression stockings from the hospital. Wear these daily for the first two weeks after surgery. You may take them off at night. You may be prescribed a medication to help thin your blood. Take this as directed. If you are not prescribed this medication, early and frequent ambulation has been shown to be the best prophylaxis to deep vein thrombosis and sequelae related to this event. Discharge Disposition: HOME WITH HOME HEALTH SERVICES
== END 2024-11-16 16:57 | disposition home health service (06) | DRG 426 ==
LOC: 2ORMAIN 07:13 → 4SSUR 16:17
PROVIDERS: ADMIT Hospitalist; ATTEND Hospitalist
PROC: 0RGA071 Fusion of Thoracolumbar Vertebral Joint with Autologous Tissue Substitute, Posterior Approach, Posterior Column, Open Approach (ICD-10-PCS; 2024-11-09)
PROC: 0SG00AJ Fusion of Lumbar Vertebral Joint with Interbody Fusion Device, Posterior Approach, Anterior Column, Open Approach (ICD-10-PCS; 2024-11-09)
PROC: 0SG0071 Fusion of Lumbar Vertebral Joint with Autologous Tissue Substitute, Posterior Approach, Posterior Column, Open Approach (ICD-10-PCS; 2024-11-09)
PROC: 0RG70AJ Fusion of 2 to 7 Thoracic Vertebral Joints with Interbody Fusion Device, Posterior Approach, Anterior Column, Open Approach (ICD-10-PCS; 2024-11-09)
PROC: 0RG7071 Fusion of 2 to 7 Thoracic Vertebral Joints with Autologous Tissue Substitute, Posterior Approach, Posterior Column, Open Approach (ICD-10-PCS; 2024-11-09)
PROC: 0PS40ZZ Reposition Thoracic Vertebra, Open Approach (ICD-10-PCS; 2024-11-09)
PROC: 00NX0ZZ Release Thoracic Spinal Cord, Open Approach (ICD-10-PCS; 2024-11-09)
PROC: 8E0WXBZ Computer Assisted Procedure of Trunk Region (ICD-10-PCS; 2024-11-09)
PROC: 0RGA0AJ Fusion of Thoracolumbar Vertebral Joint with Interbody Fusion Device, Posterior Approach, Anterior Column, Open Approach (ICD-10-PCS; principal; 2024-11-09 08:45)
DX: S22.081A Stable burst fracture of T11-T12 vertebra, initial encounter for closed fracture (principal); J18.9 Pneumonia, unspecified organism; J96.01 Acute respiratory failure with hypoxia; J44.0 Chronic obstructive pulmonary disease with (acute) lower respiratory infection; K76.89 Other specified diseases of liver; S22.069A Unspecified fracture of T7-T8 vertebra, initial encounter for closed fracture; E03.9 Hypothyroidism, unspecified; M40.294 Other kyphosis, thoracic region; F17.210 Nicotine dependence, cigarettes, uncomplicated; M19.042 Primary osteoarthritis, left hand; M43.16 Spondylolisthesis, lumbar region; E87.70 Fluid overload, unspecified; I25.10 Atherosclerotic heart disease of native coronary artery without angina pectoris; K59.03 Drug induced constipation; T40.605A Adverse effect of unspecified narcotics, initial encounter; M19.041 Primary osteoarthritis, right hand; W19.XXXA Unspecified fall, initial encounter; Y95 Nosocomial condition; Z79.890 Hormone replacement therapy; Z79.51 Long term (current) use of inhaled steroids; Z79.891 Long term (current) use of opiate analgesic; Z79.899 Other long term (current) drug therapy
CPT/HCPCS: 71045; 71250; 72020; 72128; 72131; 74176; 80048; 80053; 82150; 83690; 83880; 84145; 84484; 85025; 87070; 87077; 87186; 87205; 87636; 88307; 93306; 94640; 94760